=== PATIENT | female | born 1940 | race Caucasian/White ===

== ENCOUNTER 2017-01-08 14:32 | Inpatient (IN) | payer MEDICARE, BC ==
[~2017-01-08] VITALS: Ht 167.6 cm; Wt 73.1 kg
[~2017-01-08 14:32] MED LIST: CITA20TA9 PO; LISI-338 PO; METF500T4 PO
--- NOTE | 2017-01-08 14:55 | PHYS DOC ---
Text Text See Dr. Cherry chart for details. Still awaiting- [facility] response on admission. Impression: 1. Mental Status Change- last few days 2. 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 Hx. of Recent UTI 4. Hallucinations (CARLA CAMPO MD) General Chief Complaint: ALTERED MENTAL STATUS Stated Complaint: AMS Time Seen by MD: 14:36 Source: patient, EMS Exam Limitations: clinical condition Problems: (SRINI CHERRY DO) Time Seen by MD: 18:21 Problems: (CARLA CAMPO MD) History of Present Illness Initial Comments Pt is 76/F to ED for reported worsening of dementia. EMS reports that pt daughter is a nurse, she reports pt dementia has been worsening for about 6 weeks. Daughter says that she went to pick pt up for doctor appointment today and pt refused to go with her. Daughter stated to EMS pt recently diagnosed UTI but says dementia progression began prior to UTI diagnosis. On ED arrival pt daughter remains in waiting room as there is an obvious point of tension between them. Pt notified ED staff that her daughter comes over to her house constantly giving her orders telling her what to do. States that today she came into her home unannounced and began ordering her around, pt states she decided it was enough, it is her house and her daughter hasn't the right to order her around. Pt refused to cooperate with her daughter prompting daughter to call 911. Pt states she's had a correction strained relationship with her daughter, states she has two sons with whom she enjoys good relations. Pt appears to have good recent/remote memory, she did state she thought today was Wednesday. Pt talks to persons not present thru ED course with apparent hallucinations. Pt does state she has a "special relationship" with Dr Razo's son. She says he lives close and was present today at her home when her daughter came over and EMS responded. EMS did not see any children in pt home. Timing/Duration: unsure Severity: moderate Modifying Factors: improves with other Associated Symptoms: other (SRINI CHERRY DO) Allergies: Coded Allergies: No Known Drug Allergies (Unverified , 07/08/14) Past Medical History Medical History: other (CVA, depression, DM, HTN) Surgical History: noncontributory (SRINI CHERRY DO) Family History Significant Family History: no pertinent family hx (SRINI CHERRY DO) Social History Smoker: non-smoker Alcohol: none Drugs: none (SRINI CHERRY DO) Review of Systems All Other Systems: Reviewed and Negative (pt with AMS, accurate ROS unobtainable) (SRINI CHERRY DO) Physical Exam General Appearance: WD/WN, no apparent distress Eyes: bilateral eye EOMI, bilateral eye PERRL, bilateral eye normal inspection Ear, Nose, Throat: hearing grossly normal, normal ENT inspection Neck: non-tender, supple Respiratory: normal breath sounds, no respiratory distress Cardiovascular: normal peripheral pulses, regular rate, rhythm Gastrointestinal: non tender, soft Back: no CVA tenderness, no vertebral tenderness Extremities: non-tender, normal inspection Neurologic/Psychiatric: account liaison II-XII nml as tested, no motor/sensory deficits, alert, other (cooperative, anxious, apparent hallucinations speaking to "Alicia " and others not present.) Skin: normal color, warm/dry (SRINI CHERRY DO) Orders, Labs, Meds EKG: NSR 91 bpm, low voltage, no STEMI Reassuring workup, medically cleared for mental health evaluation. 1737: Currently waiting for [facility] response as to whether they will accept pt for eval/tx. Pt signed out to Dr Campo at 1800 shift change. See his documentation for pt disposition. (SRINI CHERRY DO) SRINI CHERRY DO Jan 08, 2017 14:55 CARLA CAMPO MD Jan 08, 2017 19:19
--- NOTE | 2017-01-08 15:30 | EKG ---
[address] [address] Test Date: 2017-01-08 Test Time: 15:27:54 Pat Name: ANTHONY ALANIZ Department: Room: Gender: F [employer] Operator: TACHO : 1940 Requested By: SRINI CHERRY Order Number: [id number] Reading MD: Lj Hair Measurements Intervals [place] Rate: 91 P: 59 OK: 170 QRS: 4 QRSD: 80 T: 26 QT: 358 QTc: 442 Interpretive Statements SINUS RHYTHM Electronically Signed On 01-12-2017 15:29:54 CDT by Lj Hair
[2017-01-08 15:32] LABS: BASO % 1 % (0-3); EOS # 0.2 x10^3/uL (0.0-0.7); EOS % 3 % (0-3); HEMATOCRIT 41.4 % (36.0-47.0); HEMOGLOBIN 13.8 g/dL (12.0-15.5); LYMPH # 1.8 x10^3/uL (1.0-4.8); LYMPH % 26 % (24-48); MEAN CORPUSCULAR HEMOGLOBIN 33 pg (25-35); MEAN CORPUSCULAR HGB CONC 33 g/dL (31-37); MEAN CORPUSCULAR VOLUME 98 fL (79-100); MONO # 0.6 x10^3/uL (0.0-1.1); MONO % 8 % (0-9); NEUT # 4.4 x10^3uL (1.8-7.7); NEUT % 63 % (31-73); PLATELET COUNT 205 x10^3/uL (140-400); RED CELL DISTRIBUTION WIDTH 14.6 % (11.5-14.5); WHITE BLOOD COUNT 6.9 x10^3/uL (4.0-11.0)
[2017-01-08 15:33] LABS: CALCIUM 9.8 mg/dL (8.5-10.1); CREATININE 1.1 mg/dL (0.6-1.0); GFR 48.2; POTASSIUM 4.1 mmol/L (3.5-5.1)
[2017-01-08 16:32] LABS: CLARITY,URINE CLEAR; COLOR,URINE YELLOW
[2017-01-08 16:33] LABS: AMORPHOUS SEDIMENT,UR PRESENT /HPF; BACTERIA,URINE 0 /HPF (0-FEW); BILIRUBIN,URINE NEG (NEG); GLUCOSE,URINE NEG (NEG); NITRITE,URINE NEG (NEG); SQUAMOUS EPITHELIAL CELL,UR OCC /LPF; UROBILINOGEN,URINE 0.2 mg/dL (0.2 mg/dL)
[2017-01-08 16:57] LABS: AMPHETAMINE/METHAMPHETAMINE NEG (NEG); BARBITURATES NEG (NEG); BENZODIAZEPINES NEG (NEG); CANNABINOIDS NEG (NEG); COCAINE NEG (NEG); METHADONE NEG (NEG); OPIATES NEG (NEG); PHENCYCLIDINE NEG (NEG)
--- NOTE | 2017-01-08 19:08 | ACF ---
Admission Criteria Forms MENTAL STATUS CHANGE Clinical Indications for Inpatient Care (Place 'X' for any and all applicable criteria): Ongoing inpatient care may be needed for 1 or more of the following(1)(2)(3)(5)( 6): [x]I. Suspected serious etiology (eg, medical disorder, FRETTED INSTRUMENT REPAIRER event) of altered mental status [ ]II. Danger to self or others not manageable at lower level of care [ ]III. Grave disability (eg, inability to perform self care necessary at lower level of care) [ ]IV. Agitation or inappropriate behavior interfering with care for primary condition (eg, attempting to discontinue lines or drains prematurely, unable to cooperate with respiratory care) [ ]V. Delirium [A] [D][E] as described by 1 or more of the following(26): [ ]a) Delirium due to alcohol or sedative [F] withdrawal [ ]b) Delirium of uncertain etiology that has not responded to appropriate empiric treatment [ ]c) Delirium that prevents performance of a life-sustaining function (eg, feeding or hydrating oneself) [ ]. General contraindications and/or Inappropriate clinical situations for Observational Care in patients with Mental Status Change, when ANY ONE of the following is required: [ ]a) Prediction of prolongation of LOS based on ANY ONE of the following may be considered as a contraindication for observational care 2, 3, 4, 5, 6, 7, 8, 9, 10, 11 [ ]i) Age > 65 yrs. [ ]ii) Patient arriving by ambulance [ ]iii) Patient with high acuity [ ]iv) Patient requiring vital sign monitoring [ ]v) Patient on IV medication [ ]b) Systolic blood pressures greater than or equal to 180mmHg 3, 12 [ ]c) Patient with altered mental status including delirium and other alteration of consciousness, (3) [ ]d) Patient whose discharge disposition will be to a correction home or rehabilitation home should not be managed in Emergency Department Observation Unit. CMS rule requires 3 days hospital stay before such placement.3,13 [ ]e) Patient with failure to thrive due to broad array of etiologies 3,16,17 [ ]f) Inability to ambulate 3,14 Extended stay beyond goal length of stay for the primary condition may be needed until ALL of the following are present(3)(5): [ ]a) Underlying medical etiology of mental status change is absent, or has been established and adequately treated [ ]b) Danger to self or others is absent or manageable at lower level of care. [ ]c) Behavior crisis management, including physical or chemical restraints, is not required or available at lower level of car [ ]d) Substance or alcohol withdrawal is absent or manageable at lower level of care. [ ]e) Behavioral symptoms (eg, agitation, somnolence, inappropriate behavior) are absent, or are manageable at lower level of care. The original [facility] [employer] content created by [facility] [employer] has been revised. The portions of the content which have been revised are identified through the use of italic text or in bold, and [facility] has neither reviewed nor approved the modified material. All other unmodified content is copyright [facility]. Please see references footnoted in the original [facility] edition 2016 Admission Criteria Met?: Yes SWETHA MEANS Jan 08, 2017 19:07
--- NOTE | 2017-01-08 19:45 | NUR ---
Admission Note: Patient arrived to [facility] room 218 accompanied by [facility] ER staff/EMS. Patient w/o s/s of distress. Gait steady. Vital signs on arrival: Temp-97.0, HR 105 (regular, S1 S2), Spo2= 94% on RA, resp 18 regular and unlabored, and BP 156/93. LCTA with diminished bases, No edema noted to peripheral extremities. Pedal pulses 1+ bilat. Pt denies pain/discomfort. Skin overall intact; no areas related to pressure noted. Bowel sounds active x 4 quads; Abdomen soft; last BM unknown. Patient alert and oriented to self only and disoriented to place, situation, date, and time. PERRLA. No hearing deficit noted. Patient presents with labile mood; shifting between calm and cooperative to irritable and non-compliant. Patient has hallucinations and delusions noted via carrying on conversation with 2-3 people that are not present in her room. Patient states, "Who put me here? My daughter couldn't have because she is in senior living! Mom! Son! Come in here and talk to Dr. Razo please!" Patient redirected and attempted reorientation, in which her response was, " I don't mean to be mean, I just don't understand what I did?' Spoke with patient's daughter/DPOA to review current medications and noted behaviors at home. Daughter states that patient is only taking Aricept 10 mg po daily and Metoprolol 50 mg po BID. Janumet, Celexa, and Lisinopril, and metformin were discontinued in October 2016. Additional information from daughter: Baseline behavior is quiet, demure, and reserved and she was able to live alone. Change in behavior noted in October 2016 and included: inability to care for her dog, no personal care such as bathing or laundry, sleeping at odd times, forgetful, delusions (e.g. thinking she was to her primary care doctor). Daughter stated she has been looking at intermediate school teacher care facilities that provide memory care (they have toured [employer] thus far). Will monitor patient response to [facility] admission and intervene accordingly.
--- NOTE | 2017-01-08 21:00 | PDOC ---
Exam Fabian Demential Exam: Fabian Note: Please also refer to the separate dictated note~for this date of service dictated separately.~Patient seen individually. Discussed the patient with Nursing staff reviewed the chart.~Reviewed interim history and current functioning. Reviewed vital signs,~Labs/ Radiology~and current medications noted below. Continue current treatment with the changes noted in the dictated addendum note Assessment: Vital Signs: Vital Signs Date Time Temp Pulse Resp B/P Pulse Ox O2 Delivery O2 Flow Rate FiO2 01/08/17 14:45 97.6 95 20 97 Room Air Labs: Laboratory Tests Test 01/08/17 15:15 01/08/17 16:00 White Blood Count 6.9x10^3/uL (4.0-11.0) Red Blood Count 4.20x10^6/uL (3.50-5.40) Hemoglobin 13.8g/dL (12.0-15.5) Hematocrit 41.4% (36.0-47.0) Mean Corpuscular Volume 98fL (79-100) Mean Corpuscular Hemoglobin 33pg (25-35) Mean Corpuscular Hemoglobin Concent 33g/dL (31-37) Red Cell Distribution Width 14.6% (11.5-14.5) H Platelet Count 205x10^3/uL (140-400) Neutrophils (%) (Auto) 63% (31-73) Lymphocytes (%) (Auto) 26% (24-48) Monocytes (%) (Auto) 8% (0-9) Eosinophils (%) (Auto) 3% (0-3) Basophils (%) (Auto) 1% (0-3) Neutrophils # (Auto) 4.4x10^3uL (1.8-7.7) Lymphocytes # (Auto) 1.8x10^3/uL (1.0-4.8) Monocytes # (Auto) 0.6x10^3/uL (0.0-1.1) Eosinophils # (Auto) 0.2x10^3/uL (0.0-0.7) Basophils # (Auto) 0.0x10^3/uL (0.0-0.2) Sodium Level 142mmol/L (136-145) Potassium Level 4.1mmol/L (3.5-5.1) Chloride Level 105mmol/L (98-107) Carbon Dioxide Level 30mmol/L (21-32) Anion Gap 7 (6-14) Blood Urea Nitrogen 15mg/dL (7-20) Creatinine 1.1mg/dL (0.6-1.0) H Estimated GFR (Cockcroft-Gault) 48.2 Glucose Level 107mg/dL (70-99) H Calcium Level 9.8mg/dL (8.5-10.1) Ethyl Alcohol Level < 10mg/dL (0-10) Urine Collection Type U cath Urine Color Yellow Urine Clarity Clear Urine pH 5.5 Urine Specific [place] >=1.030 Urine Protein Neg (NEG-TRACE) Urine Glucose (UA) Negmg/dL (NEG) Urine Ketones (Stick) Negmg/dL (NEG) Urine Blood Neg (NEG) Urine Nitrite Neg (NEG) Urine Bilirubin Neg (NEG) Urine Urobilinogen Dipstick 0.2mg/dL (0.2 mg/dL) Urine Leukocyte Esterase Neg (NEG) Urine RBC 1-2/HPF (0-2) Urine WBC 1-4/HPF (0-4) Urine Squamous Epithelial Cells Occ/LPF Urine Transitional Epithelial Cells Occ/LPF Urine Amorphous Sediment Present/HPF Urine Bacteria 0/HPF (0-FEW) Urine Opiates Screen Neg (NEG) Urine Methadone Screen Neg (NEG) Urine Barbiturates Neg (NEG) Urine Phencyclidine Screen Neg (NEG) Urine Amphetamine/Methamphetamine Neg (NEG) Urine Benzodiazepines Screen Neg (NEG) Urine Cocaine Screen Neg (NEG) Urine Cannabinoids Screen Neg (NEG) Urine Ethyl Alcohol Neg (NEG) Current Medications: Meds: Active Scripts Active Reported Lisinopril 5 Mg Tablet 5 Mg PO DAILY Metformin Hcl 500 Mg Tablet 500 Mg PO BIDWMEALS Celexa (Citalopram Hydrobromide) 20 Mg Tablet 20 Mg PO HS Diagnosis: Problems: (1) Confusion (2) Fall (3) Dementia with behavioral disturbance JIMBO MARLEY MD Jan 08, 2017 20:59
[2017-01-08] MEDS ORDERED: DONE10TA61 PO (21:36)
[2017-01-08] MEDS ORDERED: METO50TA2 PO (21:36)
[2017-01-08] MEDS ORDERED: MAG HYDROX/AL HYDROX/SIMETH 30 ML ORAL.SUSP PO PRN (21:45)
[2017-01-08] MEDS ORDERED: METHYL SALICYLATE/MENTHOL TOPICAL OINTMENT 29GM TUBE. TP PRN (21:45)
[2017-01-08] MEDS ORDERED: ACETAMINOPHEN 325 MG TABLET PO PRN (21:45)
[2017-01-08] MEDS ORDERED: MAGNESIUM HYDROXIDE 2,400 MG/30 ML ORAL.SUSP. PO PRN (21:45)
[2017-01-08] MEDS: DONEPEZIL HCL 10 MG TABLET PO SCH (22:00)
[2017-01-08 22:12] LABS: ALBUMIN 3.3 g/dL (3.4-5.0); ALBUMIN/GLOBULIN RATIO 0.9 (1.0-1.7); CALCIUM 9.8 mg/dL (8.5-10.1); GFR 53.8; POTASSIUM 4.2 mmol/L (3.5-5.1); TOTAL BILIRUBIN 0.6 mg/dL (0.2-1.0); TOTAL PROTEIN 7.1 g/dL (6.4-8.2)
[2017-01-08 22:29] VITALS: BP 156/93
--- NOTE | 2017-01-08 23:00 | NUR ---
Behavior Intervention Response and Plan: BIRP Note: Behavior: Assumed Care of patient, patient located in Day Room at shift change. Patient exhibited the following behavior Restless, Wandering, Exit Seeking, Anxious, paranoid, suspicious, swinging at staff. Brief assessment on rounds of vital signs, medication needs, lab studies, and pain. Treatment plan problems . Intervention: Patient assessed and the following interventions initiated safety checks 15 Minute Checks, Cognitive Assessment , Head to toe Assessment , Medications, Dr. Smith notified of the above behaviors. Orders received for Zyprexa Zydis 2.5 mg po Q 2 hours prn agitation and anxiety. Max dose 10 mg in 24 hour period. Response: After interactions and interventions patient responded in the following manner, Calm , Interactive ,Cooperative, awake, no s/s distress. Continue to assess behaviors and condition will continue to monitor throughout the shift as needed. Plan: Continue to monitor Master Treatment Plan for patient's progress toward short term goals of Decreased Agitation, Decreased Anxiety, Medication Compliance, Improved Mood, oysterman goals to return to previous living setting vs placement. Continue to assess patient for changes in above assessment. Monitor for medication needs, pain, and safety concerns. Hourly rounding performed to ensure safe environment.
--- NOTE | 2017-01-09 06:00 | NUR ---
Nursing Note: Patient calm and exhibiting same behaviors at this time, but did not sleep at all last night. Report given for shift exchange and nursing will continue to follow.
[2017-01-09 06:28] VITALS: BP 138/89
[2017-01-09] MEDS: METOPROLOL TART IMMED RELEASE 50 MG TABLET PO SCH ×2 (08:04→21:10)
--- NOTE | 2017-01-09 09:28 | NUR ---
Behavior Intervention Response and Plan: BIRP Note: Behavior: Assumed Care of patient, patient located in Hallway at shift change. Patient exhibited the following behavior Disorganized, Irritable, Delusions. Brief assessment on rounds of vital signs, medication needs, lab studies, and pain. Treatment plan problems . Intervention: Patient assessed and the following interventions initiated safety checks 15 Minute Checks Cognitive Assessment , Head to toe Assessment , Medications. Response: After interactions and interventions patient responded in the following manner, Disorganized , Compliant ,Delusions. Continue to assess behaviors and condition will continue to monitor throughout the shift as needed. 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 Continue to assess patient for changes in above assessment. Monitor for medication needs, pain, and safety concerns. Hourly rounding performed to ensure safe environment.
[2017-01-09 10:53] LABS: THYROID STIM HORMONE (TSH) 2.718 uIU/mL (0.358-3.740)
--- NOTE | 2017-01-09 12:06 | HP ---
ADMIT DATE: 01/09/2017 REASON FOR ADMISSION TO SENIOR BEHAVIORAL UNIT: This is a 76-year-old female who was living at home, but has been having increasing problems with dementia, talking to unseen people, confused, and wandering. PAST MEDICAL HISTORY: Hypertension, diabetes, and dementia. ALLERGIES: None. MEDICATIONS: Metoprolol, very few medications, Aricept 10 mg at bedtime, and metoprolol 50 b.i.d. Other medicines are crossed off such as Celexa, lisinopril, and metformin. SOCIAL HISTORY: Nonsmoker and nondrinker. 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 REVIEW OF SYSTEMS: The patient does not have any complaints and emphatically said no as far as urinary or bowel problems. OBJECTIVE: VITAL SIGNS: Blood pressure 138/89, pulse 82, temperature 96.7, respirations 14, pulse ox 98% on room air, height 66 inches, weight 154 pounds, and 24.9 BMI. GENERAL: A 76-year-old in no acute distress. She looks slightly younger than her stated age. HEENT: Her hearing is normal. Her pupils were equal, round, and react to light. Extraocular muscles are intact. Her nose is patent. Her throat was clear. Tongue was midline. Gag is intact. NECK: Supple. Thyroid was not enlarged. LUNGS: Clear to auscultation. CARDIOVASCULAR: Regular rhythm and rate. ABDOMEN: Soft and nontender. EXTREMITIES: Without edema. MUSCULOSKELETAL: She passes to get up and go test. Cranial nerves are intact. She ambulates without assistance. MENTAL STATE: Confused. She states she is here because she wants to go to school to be a nurse. Short term memory not good. She did know her age. LABORATORY DATA: Normal CBC. She has hyperlipidemia. TSH 2.718. Albumin slightly low at 3.3, BUN 15, and creatinine 1.0. Urinalysis specific gravity was greater than 1.030 yesterday. Drug screen negative. ASSESSMENT: 1. A 77-year-old with progressing dementia. 2. Diabetes, off medication. 3. Hypertension. 4. Hyperlipidemia. We will prescribe a statin. 5. Mild protein malnutrition. We will monitor her diet. 6. Dehydration per specific gravity of urinalysis and give order to push fluids. Monitor other labs as they come in. MELISSA BOB DO DR: Hillary JOB#: [id number] / [id number]
[2017-01-09 16:08] LABS: T3 TOTAL 100 ng/dL (71-180); THYROXINE 6.1 ug/dL (4.5-12.0)
[2017-01-09 16:12] VITALS: BP 117/76
--- NOTE | 2017-01-09 17:37 | NUR ---
pt anxious in am and wouldn't come to breakfast. looking for way out. compliant with meds. took zydis. calm until afternoon, after visit with son. zydis again given. has been in pleasant spirits. confused.
[2017-01-09] MEDS ORDERED: traZODone 50 MG TABLET. PO PRN (19:30)
--- NOTE | 2017-01-09 21:08 | PDOC ---
Exam Fabian Demential Exam: Fabian Note: Please also refer to the separate dictated note~for this date of service dictated separately.~Patient seen individually. Discussed the patient with Nursing staff reviewed the chart.~Reviewed interim history and current functioning. Reviewed vital signs,~Labs/ Radiology~and current medications noted below. Continue current treatment with the changes noted in the dictated addendum note Assessment: Vital Signs: Vital Signs Date Time Temp Pulse Resp B/P Pulse Ox O2 Delivery O2 Flow Rate FiO2 01/09/17 16:12 97.0 72 18 117/76 97 01/09/17 06:28 Room Air Current Medications: Meds: Current Medications Donepezil HCl (Aricept) 10 mg QHS PO Last administered on 01/08/17 22:00; Start 01/08/17 at 22:00 Acetaminophen (Tylenol) 650 mg PRN Q6HRS PRN PO PAIN / TEMP; Start 01/08/17 at 21:45 Multi-Ingredient Ointment (Analgesic Marcus) 1 shelia PRN QID PRN TP MUSCLE PAIN; Start 01/08/17 at 21:45 Al Hydroxide/Mg Hydroxide (Mylanta Plus Xs) 15 ml PRN AFTMEALHC PRN PO DYSPEPSIA; Start 01/08/17 at 21:45 Magnesium Hydroxide (Milk Of Magnesia) 2,400 mg PRN QHS PRN PO CONSTIPATION; Start 01/08/17 at 21:45 Olanzapine (Zyprexa Zydis) 2.5 mg PRN Q2HR PRN PO ANXIETY / AGITATION Last administered on 01/09/17 13:22; Start 01/08/17 at 22:45 Metoprolol Tartrate (Lopressor) 50 mg BID PO Last administered on 01/09/17 08: 04; Start 01/09/17 at 09:00 Atorvastatin Calcium (Lipitor) 20 mg QHS PO ; Start 01/09/17 at 21:00 Quetiapine Fumarate (SEROquel) 12.5 mg QHS PO ; Start 01/09/17 at 21:00 Trazodone HCl (Desyrel) 25 mg PRN QHS PRN PO INSOMNIA, MAY REPEAT X1; Start at 19:30 Active Scripts Active Reported Aricept (Donepezil Hcl) 10 Mg Tablet 10 Mg PO QHS Metoprolol Tartrate 50 Mg Tablet 50 Mg PO BID Diagnosis: Problems: (1) Dementia with behavioral disturbance (2) Confusion (3) Fall JIMBO MARLEY MD Jan 09, 2017 21:08
[2017-01-09] MEDS: DONEPEZIL HCL 10 MG TABLET PO SCH (21:10)
[2017-01-09] MEDS: QUEtiapine 25 MG TABLET. PO SCH (21:12)
[2017-01-09] MEDS: ATORVASTATIN CALCIUM 20 MG TABLET PO SCH (21:12)
--- NOTE | 2017-01-09 22:29 | HP ---
ADMIT DATE: 01/09/2017 IDENTIFYING DATA: The patient is a 76-year-old female who presented to the [facility] Emergency Room referred by her primary care physician, Dr. Razo on account of increased confusion, talking to unseen people, and wandering. Reportedly, the patient lives at home, still has a car available to her. She has been very confused, paranoid, delusional, and psychotic with some sleep and appetite changes. Behaviors have been deemed to be a potential danger to herself. She was referred for inpatient psychiatric stabilization. 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 HISTORY OF PRESENT ILLNESS: The patient has a history of dementia, Alzheimer's vascular type. Reportedly, she has been living at home with worsening confusion. There has been a risk that she could be driving as she has been wandering outside the home. She has had some sleep and appetite changes. No clear suicidal or homicidal ideation. No clear history of bipolar disorder. PAST PSYCHIATRIC HISTORY: Positive for progressive dementia and symptoms of depression and anxiety prior to this. 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 PAST MEDICAL HISTORY: Hypertension and diabetes mellitus. DRUG ALLERGIES: Negative. CURRENT PSYCHOTROPICS: Aricept 10 mg a day and metoprolol 50 mg twice a day. DRUG ALLERGIES: Negative. CODE STATUS: DNR. FAMILY HISTORY: Noncontributory. SOCIAL HISTORY: No alcohol, drug abuse, physical, sexual, or elder abuse history is noted. She is not known to be a perpetrator. VITAL SIGNS: Temperature 97, pulse 72, and BP 117/76. REVIEW OF SYSTEMS: No CV, , eye, ENT, or pulmonary system symptoms on review. Reliability poor. MENTAL STATUS EXAMINATION: Oriented to herself. Insight, judgment, recent and remote memory, attention, concentration, fund of knowledge poor, consistent with her diagnoses. IMPRESSION: Major neurocognitive disorder, Alzheimer, vascular with depression, delusion, behavioral disturbance; anxiety disorder, unspecified; and impulse control disorder, unspecified. PLAN: Admit to the geropsychiatry unit at [facility]. I will see the patient daily individually. Request medical followup with Dr. Loco/Dr. Lehman. Continue the patient on her current psychotropics. Observe baseline and then make further adjustments as clinically indicated. MAN Brooks MARLEY MD DR: JEAN/filemon JOB#: [id number] / [id number]
[2017-01-09 23:06] LABS: HEMOGLOBIN A1C 5.7 % (4.8-5.6)
--- NOTE | 2017-01-10 00:34 | NUR ---
Behavior Intervention Response and Plan: BIRP Note: Behavior: Assumed Care of patient, patient located in Day Room at shift change. Patient exhibited the following behavior Interactive, Disorganized, Defensive. Brief assessment on rounds of vital signs, medication needs, lab studies, and pain. Treatment plan problems :1-2 Intervention: Patient assessed and the following interventions initiated safety checks 15 Minute Checks Cognitive Assessment , Head to toe Assessment , Medications. Response: After interactions and interventions patient responded in the following manner, Disorganized , Defensive ,Able to Focus on Task. Continue to assess behaviors and condition will continue to monitor throughout the shift as needed. 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 Continue to assess patient for changes in above assessment. Monitor for medication needs, pain, and safety concerns. Hourly rounding performed to ensure safe environment.
[2017-01-10 07:00] VITALS: BP 100/53
[2017-01-10] MEDS: METOPROLOL TART IMMED RELEASE 50 MG TABLET PO SCH ×2 (07:55→19:26)
--- NOTE | 2017-01-10 15:31 | NUR ---
pt up adl to meals and out to day room. slept thru breakfast. got up mid morning. anxious. med compliant. ate well for noon meal. confused but pleasant.
[2017-01-10 17:04] VITALS: BP 137/81
[2017-01-10] MEDS: ATORVASTATIN CALCIUM 20 MG TABLET PO SCH (19:24)
[2017-01-10] MEDS: DONEPEZIL HCL 10 MG TABLET PO SCH (19:24)
[2017-01-10] MEDS: QUEtiapine 25 MG TABLET. PO SCH (19:24)
--- NOTE | 2017-01-10 21:02 | PDOC ---
Exam Fabian Demential Exam: Fabian Note: Please also refer to the separate dictated note~for this date of service dictated separately.~Patient seen individually. Discussed the patient with Nursing staff reviewed the chart.~Reviewed interim history and current functioning. Reviewed vital signs,~Labs/ Radiology~and current medications noted below. Continue current treatment with the changes noted in the dictated addendum note Assessment: Vital Signs: Vital Signs Date Time Temp Pulse Resp B/P Pulse Ox O2 Delivery O2 Flow Rate FiO2 01/10/17 19:26 78 137/81 01/10/17 17:04 97.9 19 100 01/09/17 06:28 Room Air I&O Intake and Output 01/10/17 07:00 Intake Total 480 ml Balance 480 ml Intake Oral 480 ml Current Medications: Meds: Current Medications Donepezil HCl (Aricept) 10 mg QHS PO Last administered on 01/10/17 19:24; Start 01/08/17 at 22:00 Acetaminophen (Tylenol) 650 mg PRN Q6HRS PRN PO PAIN / TEMP; Start 01/08/17 at 21:45 Multi-Ingredient Ointment (Analgesic [place]) 1 shelia PRN QID PRN TP MUSCLE PAIN; Start 01/08/17 at 21:45 Al Hydroxide/Mg Hydroxide (Mylanta Plus Xs) 15 ml PRN AFTMEALHC PRN PO DYSPEPSIA; Start 01/08/17 at 21:45 Magnesium Hydroxide (Milk Of Magnesia) 2,400 mg PRN QHS PRN PO CONSTIPATION; Start 01/08/17 at 21:45 Olanzapine (Zyprexa Zydis) 2.5 mg PRN Q2HR PRN PO ANXIETY / AGITATION Last administered on 01/10/17 07:56; Start 01/08/17 at 22:45 Metoprolol Tartrate (Lopressor) 50 mg BID PO Last administered on 01/10/17 19: 26; Start 01/09/17 at 09:00 Atorvastatin Calcium (Lipitor) 20 mg QHS PO Last administered on 01/10/17 19: 24; Start 01/09/17 at 21:00 Quetiapine Fumarate (SEROquel) 12.5 mg QHS PO Last administered on 01/10/17 19 :24; Start 01/09/17 at 21:00 Trazodone HCl (Desyrel) 25 mg PRN QHS PRN PO INSOMNIA, MAY REPEAT X1 Last administered on 01/09/17t 21:09; Start 01/09/17 at 19:30 Active Scripts Active Reported Aricept (Donepezil Hcl) 10 Mg Tablet 10 Mg PO QHS Metoprolol Tartrate 50 Mg Tablet 50 Mg PO BID Diagnosis: Problems: (1) Dementia with behavioral disturbance (2) Confusion (3) Fall (4) Anxiety disorder (5) Dementia in Alzheimer's disease with delusions (6) Dementia in Alzheimer's disease with depression (7) Dementia, vascular, with delusions (8) Dementia, vascular, with depression (9) Impulse control disorder JIMBO MARLEY MD Jan 10, 2017 21:02
--- NOTE | 2017-01-11 01:36 | NUR ---
Behavior Intervention Response and Plan: BIRP Note: Behavior: Assumed Care of patient, patient located in at shift change. Patient exhibited the following behavior Wandering, Exit Seeking, Irritable. Brief assessment on rounds of vital signs, medication needs, lab studies, and pain. Treatment plan problems :1-2 Intervention: Patient assessed and the following interventions initiated safety checks 15 Minute Checks Cognitive Assessment , Head to toe Assessment , Medications. Response: After interactions and interventions patient responded in the following manner, Hallucinating , Irritable ,Delusions. Continue to assess behaviors and condition will continue to monitor throughout the shift as needed. 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 Continue to assess patient for changes in above assessment. Monitor for medication needs, pain, and safety concerns. Hourly rounding performed to ensure safe environment.
--- NOTE | 2017-01-11 01:43 | NUR ---
Nsg Note: Pt was sitting in the dayroom @ shift change & @ this time she was cooperative w/ assessment & later took her HS meds w/ only minimal amount of prompting. As shift progressed she became more confused & delusional AEB by trying to force her way out of unit when RT was exiting & also stating she had to leave because she was the "...beckwith of the ball...." She cont. to wander & declined to take any further meds to assist her in calming down. Also she was overheard talking to non existent people including her mother. Pt finally tired herself out & was assisted to bed & settled. Will cont. to monitor.
[2017-01-11 06:54] VITALS: BP 138/85
[2017-01-11] MEDS: METOPROLOL TART IMMED RELEASE 50 MG TABLET PO SCH ×2 (09:19→20:15)
--- NOTE | 2017-01-11 10:24 | NUR ---
Psychosocial Assessment completed w/Pt's dtr/DPOA Alicia. Pt. was born and raised in [place] w/2 sisters and 3 brothers. Pt. had one brother born w/Down Syndrome who as an infant. Pt. worked on the [employer]. PT's mother was raised by her mother, did not attend school and likely suffered from some sort of undiagnosed Mental Health. Pt's mother from Dementia related illness in 2001. Pt. completed HS and moved to [place] where she met and 1st named Ishaan. She has 2 children w/Ishaan named Alicia and Delano. They and she #2 named Tee, although they were only for a very brief time. Pt. then 3rd named Angel for 28 years, had one child w/him named Noam who has very little contact w/the family at this time. They are currently . 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 Pt. suffered a prescription drug problem in the s w/Valium. When the regulations changed in the , it became harder for Pt. to receive a script for Valium, thus forcing her to quit abusing the medication. Pt. has been known to take many over the counter medications for her chcf headaches. 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 Pt. owns her home and has $13,000 in a savings. Pt's dtr. would like to try a dc to home w/in-home care.
--- NOTE | 2017-01-11 10:54 | NUR ---
[facility] reviewed Pt. insurance upon admit. Face sheet, CSNAP and intake state Pt's insurance is Medicare Primary and BCBS Federal secondary.
--- NOTE | 2017-01-11 11:19 | NUR ---
Behavior Intervention Response and Plan: BIRP Note: Behavior: Assumed Care of patient, patient located in Patient Room at shift change. Patient exhibited the following behavior Interactive, Disorganized, Compliant. Brief assessment on rounds of vital signs, medication needs, lab studies, and pain. Treatment plan problems . Intervention: Patient assessed and the following interventions initiated safety checks 15 Minute Checks Cognitive Assessment , Head to toe Assessment , Medications. Response: After interactions and interventions patient responded in the following manner, Disorganized , Social ,Compliant. Continue to assess behaviors and condition will continue to monitor throughout the shift as needed. 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 Continue to assess patient for changes in above assessment. Monitor for medication needs, pain, and safety concerns. Hourly rounding performed to ensure safe environment.
--- NOTE | 2017-01-11 15:50 | PN ---
DATE: 01/10/2017 PSYCHIATRIC PROGRESS NOTE This is late entry of 01/10/2017, covers elements not covered in my initial note. SUBJECTIVE: The patient remains confused, has been wandering, exit seeking, compliant with medications. Slept well. REVIEW OF SYSTEMS: No CV, , pulmonary, eye, ENT system symptoms on review. Reliability poor. MENTAL STATUS EXAMINATION: Oriented to herself. Insight, judgment, recent and remote memory, attention, concentration, fund of knowledge poor, consistent with her diagnosis mentioned in my initial note. PLAN: Continue current psychotropics, Aricept 10 mg a day, Zyprexa p.r.n., Seroquel 12.5 mg at bedtime and trazodone at bedtime p.r.n. Adjust further as clinically indicated. MAN Brooks MARLEY MD DR: JEAN/filemon JOB#: [id number] / [id number]
--- NOTE | 2017-01-11 16:00 | NUR ---
Attempted to meet and complete Activity Therapy Assessment; however, Pt. was with a visitor. 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
[2017-01-11 16:18] VITALS: BP 120/76
[2017-01-11] MEDS: ATORVASTATIN CALCIUM 20 MG TABLET PO SCH (20:14)
[2017-01-11] MEDS: DONEPEZIL HCL 10 MG TABLET PO SCH (20:15)
[2017-01-11] MEDS: QUEtiapine 25 MG TABLET. PO SCH (20:15)
--- NOTE | 2017-01-11 21:10 | NUR ---
Behavior Intervention Response and Plan: BIRP Note: Behavior: Assumed Care of patient, patient located in Day Room at shift change. Patient exhibited the following behavior Wandering, Disorganized, Defensive, Resistive, Angry. Brief assessment on rounds of vital signs, medication needs, lab studies, and pain. Treatment plan problems 1-2/fall risk . Intervention: Patient assessed and the following interventions initiated safety checks 15 Minute Checks Cognitive Assessment , Head to toe Assessment , Medications, 1:1 intervention to allow for patient to vent in a calm environment. Response: After interactions and interventions patient responded in the following manner, Calm , Compliant ,Wandering. Continue to assess behaviors and condition will continue to monitor throughout the shift as needed. Plan: Continue to monitor Master Treatment Plan for patient's progress toward short term goals of Decreased Agitation, Decreased Anxiety, Medication Compliance, Improved Mood, terminal gauger goals to return to previous living setting vs placement. Continue to assess patient for changes in above assessment. Monitor for medication needs, pain, and safety concerns. Hourly rounding performed to ensure safe environment.
--- NOTE | 2017-01-11 23:45 | PDOC ---
Exam Fabian Demential Exam: Fabian Note: Please also refer to the separate dictated note~for this date of service dictated separately.~Patient seen individually. Discussed the patient with Nursing staff reviewed the chart.~Reviewed interim history and current functioning. Reviewed vital signs,~Labs/ Radiology~and current medications noted below. Continue current treatment with the changes noted in the dictated addendum note Assessment: Vital Signs: Vital Signs Date Time Temp Pulse Resp B/P Pulse Ox O2 Delivery O2 Flow Rate FiO2 01/11/17 20:15 63 120/76 01/11/17 16:18 98.7 18 97 01/09/17 06:28 Room Air I&O Intake and Output 01/11/17 07:00 Intake Total 140 ml Balance 140 ml Intake Oral 140 ml Current Medications: Meds: Current Medications Donepezil HCl (Aricept) 10 mg QHS PO Last administered on 01/11/17 20:15; Start 01/08/17 at 22:00 Acetaminophen (Tylenol) 650 mg PRN Q6HRS PRN PO PAIN / TEMP; Start 01/08/17 at 21:45 Multi-Ingredient Ointment (Analgesic [place]) 1 shelia PRN QID PRN TP MUSCLE PAIN; Start 01/08/17 at 21:45 Al Hydroxide/Mg Hydroxide (Mylanta Plus Xs) 15 ml PRN AFTMEALHC PRN PO DYSPEPSIA; Start 01/08/17 at 21:45 Magnesium Hydroxide (Milk Of Magnesia) 2,400 mg PRN QHS PRN PO CONSTIPATION; Start 01/08/17 at 21:45 Olanzapine (Zyprexa Zydis) 2.5 mg PRN Q2HR PRN PO ANXIETY / AGITATION Last administered on 01/10/17 07:56; Start 01/08/17 at 22:45 Metoprolol Tartrate (Lopressor) 50 mg BID PO Last administered on 01/11/17 20: 15; Start 01/09/17 at 09:00 Atorvastatin Calcium (Lipitor) 20 mg QHS PO Last administered on 01/11/17 20: 14; Start 01/09/17 at 21:00 Quetiapine Fumarate (SEROquel) 12.5 mg QHS PO Last administered on 01/11/17 20 :15; Start 01/09/17 at 21:00 Trazodone HCl (Desyrel) 25 mg PRN QHS PRN PO INSOMNIA, MAY REPEAT X1 Last administered on 01/09/17t 21:09; Start 01/09/17 at 19:30 Active Scripts Active Reported Aricept (Donepezil Hcl) 10 Mg Tablet 10 Mg PO QHS Metoprolol Tartrate 50 Mg Tablet 50 Mg PO BID Diagnosis: Problems: (1) Dementia with behavioral disturbance (2) Anxiety disorder (3) Dementia in Alzheimer's disease with delusions (4) Dementia in Alzheimer's disease with depression (5) Dementia, vascular, with delusions (6) Dementia, vascular, with depression (7) Impulse control disorder JIMBO MARLEY MD Jan 11, 2017 23:45
[2017-01-12 06:16] VITALS: BP 114/53
[2017-01-12] MEDS: METOPROLOL TART IMMED RELEASE 50 MG TABLET PO SCH ×2 (09:00→20:02)
--- NOTE | 2017-01-12 10:00 | NUR ---
THERAPEUTIC RECREATION GROUP NOTE TITLE :Butterflies and Printer Machine Art ACTIVITY : Arts and Crafts GOAL : Increase socialization, fine motor skills, creativity DURATION : 30 minutes RESPONSE : Minimal participation. Pt. sat with the group and smiled often. She complimented work of others but did not work with any materials.
--- NOTE | 2017-01-12 11:15 | NUR ---
THERAPEUTIC RECREATION GROUP NOTE TITLE :Movement to Music: Flexibility ACTIVITY : Movement/ Exercise GOAL : Increase morale, attention, flexibility. Decrease stress/anxiety. DURATION : 40 Minutes RESPONSE : Full participation. Pt. followed along with moves and needed no prompting. She had a smile on her face most of the time.
--- NOTE | 2017-01-12 13:26 | NUR ---
Behavior Intervention Response and Plan: BIRP Note: Behavior: Assumed Care of patient, patient located in Patient Room at shift change. Patient exhibited the following behavior Disorganized, Wandering, Cooperative. Brief assessment on rounds of vital signs, medication needs, lab studies, and pain. Treatment plan problems . Intervention: Patient assessed and the following interventions initiated safety checks 15 Minute Checks Cognitive Assessment , Head to toe Assessment , Medications. Response: After interactions and interventions patient responded in the following manner, Disorganized , Withdrawn ,Cooperative. Continue to assess behaviors and condition will continue to monitor throughout the shift as needed. 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 Continue to assess patient for changes in above assessment. Monitor for medication needs, pain, and safety concerns. Hourly rounding performed to ensure safe environment.
--- NOTE | 2017-01-12 14:00 | NUR ---
THERAPEUTIC RECREATION GROUP NOTE TITLE :Sing along with Kiersten ACTIVITY : Music GOAL : Increase socialization, elevate mood, stimulate memory DURATION : 60 Minutes RESPONSE : No participation.
--- NOTE | 2017-01-12 16:00 | NUR ---
ACTIVITY THERAPY ASSESSMENT Completed based on observations and interview on this day at this time in Pt's room. Pt. said she was waiting on a picture and was irritated it hadn't happened yet. She was initially not cooperative with assessment questions. 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 She continued to talk about "vulgar" things that were written and how absurd and erroneous they were; however, she was not clear on what was said exactly. She stated she was not paranoid a few times in the assessment. 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 Pt. keeps to self most of the time but will come around group. Initial goal: Pt. will participate in all group she is invited to.
[2017-01-12 16:19] VITALS: BP 118/81
[2017-01-12] MEDS: ATORVASTATIN CALCIUM 20 MG TABLET PO SCH (20:01)
[2017-01-12] MEDS: QUEtiapine 25 MG TABLET. PO SCH (20:02)
[2017-01-12] MEDS: DONEPEZIL HCL 10 MG TABLET PO SCH (20:02)
--- NOTE | 2017-01-12 21:42 | PDOC ---
Exam Fabian Demential Exam: Fabian Note: Please also refer to the separate dictated note~for this date of service dictated separately.~Patient seen individually. Discussed the patient with Nursing staff reviewed the chart.~Reviewed interim history and current functioning. Reviewed vital signs,~Labs/ Radiology~and current medications noted below. Continue current treatment with the changes noted in the dictated addendum note Assessment: Vital Signs: Vital Signs Date Time Temp Pulse Resp B/P Pulse Ox O2 Delivery O2 Flow Rate FiO2 01/12/17 20:02 104 118/81 01/12/17 16:19 20 98 01/12/17 06:16 97.6 01/09/17 06:28 Room Air I&O Intake and Output 01/12/17 07:00 Intake Total 480 ml Balance 480 ml Intake Oral 480 ml Current Medications: Meds: Current Medications Donepezil HCl (Aricept) 10 mg QHS PO Last administered on 01/12/17 20:02; Start 01/08/17 at 22:00 Acetaminophen (Tylenol) 650 mg PRN Q6HRS PRN PO PAIN / TEMP; Start 01/08/17 at 21:45 Multi-Ingredient Ointment (Analgesic [place]) 1 shelia PRN QID PRN TP MUSCLE PAIN; Start 01/08/17 at 21:45 Al Hydroxide/Mg Hydroxide (Mylanta Plus Xs) 15 ml PRN AFTMEALHC PRN PO DYSPEPSIA; Start 01/08/17 at 21:45 Magnesium Hydroxide (Milk Of Magnesia) 2,400 mg PRN QHS PRN PO CONSTIPATION; Start 01/08/17 at 21:45 Olanzapine (Zyprexa Zydis) 2.5 mg PRN Q2HR PRN PO ANXIETY / AGITATION Last administered on 01/10/17 07:56; Start 01/08/17 at 22:45 Metoprolol Tartrate (Lopressor) 50 mg BID PO Last administered on 01/12/17 20: 02; Start 01/09/17 at 09:00 Atorvastatin Calcium (Lipitor) 20 mg QHS PO Last administered on 01/12/17 20: 01; Start 01/09/17 at 21:00 Quetiapine Fumarate (SEROquel) 12.5 mg QHS PO Last administered on 01/11/17 20 :15; Start 01/09/17 at 21:00; Stop 01/12/17 at 18:13; Status DC Trazodone HCl (Desyrel) 25 mg PRN QHS PRN PO INSOMNIA, MAY REPEAT X1 Last administered on 01/09/17 21:09; Start 01/09/17 at 19:30 Quetiapine Fumarate (SEROquel) 25 mg QHS PO Last administered on 01/12/17 20: 02; Start 01/12/17 at 21:00 Escitalopram Oxalate (Lexapro) 5 mg DAILY PO ; Start 01/13/17 at 09:00 Active Scripts Active Reported Aricept (Donepezil Hcl) 10 Mg Tablet 10 Mg PO QHS Metoprolol Tartrate 50 Mg Tablet 50 Mg PO BID Diagnosis: Problems: (1) Dementia with behavioral disturbance (2) Confusion (3) Fall (4) Anxiety disorder (5) Dementia in Alzheimer's disease with delusions (6) Dementia in Alzheimer's disease with depression (7) Dementia, vascular, with delusions (8) Dementia, vascular, with depression (9) Impulse control disorder JIMBO MARLEY MD Jan 12, 2017 21:42
--- NOTE | 2017-01-12 22:30 | NUR ---
Behavior Intervention Response and Plan: BIRP Note: Behavior: Assumed Care of patient, patient located in Patient Room at shift change. Patient exhibited the following behavior Wandering, Restless, Disorganized, delusions. Brief assessment on rounds of vital signs, medication needs, lab studies, and pain. Treatment plan problems:1-2/fall risk. Intervention: Patient assessed and the following interventions initiated safety checks 15 Minute Checks Cognitive Assessment , Head to toe Assessment , Medications, reorientation/redirection. Response: After interactions and interventions patient responded in the following manner, Calm , Disorganized ,Cooperative, restful. Continue to assess behaviors and condition will continue to monitor throughout the shift as needed. 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 Continue to assess patient for changes in above assessment. Monitor for medication needs, pain, and safety concerns. Hourly rounding performed to ensure safe environment.
--- NOTE | 2017-01-13 02:49 | PN ---
DATE: 01/11/2017 PSYCHIATRIC PROGRESS NOTE This is a late entry for 01/11/2017, covers elements not covered in my initial note. SUBJECTIVE: The patient has been talking to herself, not agitated, takes her medications, somewhat withdrawn and confused. REVIEW OF SYSTEMS: No CV, , pulmonary, eye, ENT system symptoms on review. Reliability poor. MENTAL STATUS EXAM: Oriented to herself. Insight, judgment, recent and remote memory, attention, concentration, fund of knowledge poor, consistent with her diagnosis. 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 LABORATORY DATA: Reviewed. IMPRESSION: Major neurocognitive disorder, Alzheimer, vascular with depression, delusion, behavioral disturbance. Rest unchanged. Insight, judgment, recent and remote memory, attention, concentration, fund of knowledge poor, consistent with her diagnosis. PLAN: Continue Aricept 10 mg a day, Seroquel 12.5 mg at bedtime, Zyprexa p.r.n., trazodone p.r.n. Start Lexapro 5 mg a day, may need to increase this in due course. JIMBO MARLEY MD DR: JEAN/filemon JOB#: [id number] / [id number]
[2017-01-13 06:31] VITALS: BP 119/66
[2017-01-13] MEDS: METOPROLOL TART IMMED RELEASE 50 MG TABLET PO SCH ×2 (09:32→20:40)
[2017-01-13] MEDS: ESCITALOPRAM 5 MG TABLET PO SCH (09:32)
--- NOTE | 2017-01-13 14:27 | NUR ---
Behavior Intervention Response and Plan: BIRP Note: Behavior: Assumed Care of patient, patient located in Patient Room at shift change. Patient exhibited the following behavior Disorganized, Social, Compliant. Brief assessment on rounds of vital signs, medication needs, lab studies, and pain. Treatment plan problems . Intervention: Patient assessed and the following interventions initiated safety checks 15 Minute Checks Head to toe Assessment , Medications , Oral Hydration. Response: After interactions and interventions patient responded in the following manner, Wandering , Interactive ,Calm. Continue to assess behaviors and condition will continue to monitor throughout the shift as needed. 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 Continue to assess patient for changes in above assessment. Monitor for medication needs, pain, and safety concerns. Hourly rounding performed to ensure safe environment.
[2017-01-13] MEDS: ATORVASTATIN CALCIUM 20 MG TABLET PO SCH (20:32)
[2017-01-13] MEDS: QUEtiapine 25 MG TABLET. PO SCH (20:33)
[2017-01-13] MEDS: DONEPEZIL HCL 10 MG TABLET PO SCH (20:40)
--- NOTE | 2017-01-13 20:40 | NUR ---
Behavior Intervention Response and Plan: BIRP Note: Behavior: Assumed Care of patient, patient located in Patient Room at shift change. Patient exhibited the following behavior Hallucinating, Delusions, Interactive. Brief assessment on rounds of vital signs, medication needs, lab studies, and pain. Treatment plan problems . Intervention: Patient assessed and the following interventions initiated safety checks 15 Minute Checks Cognitive Assessment , Head to toe Assessment , Medications. Response: After interactions and interventions patient responded in the following manner, Hallucinating , Delusions ,Interactive. Continue to assess behaviors and condition will continue to monitor throughout the shift as needed. 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 Continue to assess patient for changes in above assessment. Monitor for medication needs, pain, and safety concerns. Hourly rounding performed to ensure safe environment.
[2017-01-13] MEDS: MIRTAZAPINE 7.5 MG TABLET. PO SCH (20:43)
--- NOTE | 2017-01-13 21:09 | PDOC ---
Exam Fabian Demential Exam: Fabian Note: Please also refer to the separate dictated note~for this date of service dictated separately.~Patient seen individually. Discussed the patient with Nursing staff reviewed the chart.~Reviewed interim history and current functioning. Reviewed vital signs,~Labs/ Radiology~and current medications noted below. Continue current treatment with the changes noted in the dictated addendum note Assessment: Vital Signs: Vital Signs Date Time Temp Pulse Resp B/P Pulse Ox O2 Delivery O2 Flow Rate FiO2 01/13/17 20:40 75 143/70 01/13/17 06:31 97.0 16 96 01/09/17 06:28 Room Air I&O Intake and Output 01/13/17 07:00 Intake Total 960 ml Balance 960 ml Intake Oral 960 ml Current Medications: Meds: Current Medications Donepezil HCl (Aricept) 10 mg QHS PO Last administered on 01/13/17 20:40; Start 01/08/17 at 22:00 Acetaminophen (Tylenol) 650 mg PRN Q6HRS PRN PO PAIN / TEMP; Start 01/08/17 at 21:45 Multi-Ingredient Ointment (Analgesic [place]) 1 shelia PRN QID PRN TP MUSCLE PAIN; Start 01/08/17 at 21:45 Al Hydroxide/Mg Hydroxide (Mylanta Plus Xs) 15 ml PRN AFTMEALHC PRN PO DYSPEPSIA; Start 01/08/17 at 21:45 Magnesium Hydroxide (Milk Of Magnesia) 2,400 mg PRN QHS PRN PO CONSTIPATION; Start 01/08/17 at 21:45 Olanzapine (Zyprexa Zydis) 2.5 mg PRN Q2HR PRN PO ANXIETY / AGITATION Last administered on 01/10/17 07:56; Start 01/08/17 at 22:45 Metoprolol Tartrate (Lopressor) 50 mg BID PO Last administered on 01/13/17 20: 40; Start 01/09/17 at 09:00 Atorvastatin Calcium (Lipitor) 20 mg QHS PO Last administered on 01/13/17 20: 32; Start 01/09/17 at 21:00 Quetiapine Fumarate (SEROquel) 12.5 mg QHS PO Last administered on 01/11/17 20 :15; Start 01/09/17 at 21:00; Stop 01/12/17 at 18:13; Status DC Trazodone HCl (Desyrel) 25 mg PRN QHS PRN PO INSOMNIA, MAY REPEAT X1 Last administered on 01/09/17 21:09; Start 01/09/17 at 19:30 Quetiapine Fumarate (SEROquel) 25 mg QHS PO Last administered on 01/13/17 20: 33; Start 01/12/17 at 21:00 Escitalopram Oxalate (Lexapro) 5 mg DAILY PO Last administered on 01/13/17 09: 32; Start 01/13/17 at 09:00 Mirtazapine (Remeron) 7.5 mg QHS PO Last administered on 01/13/17 20:43; Start 01/13/17 at 21:00 Active Scripts Active Reported Aricept (Donepezil Hcl) 10 Mg Tablet 10 Mg PO QHS Metoprolol Tartrate 50 Mg Tablet 50 Mg PO BID Diagnosis: Problems: (1) Dementia with behavioral disturbance (2) Confusion (3) Fall (4) Anxiety disorder (5) Dementia in Alzheimer's disease with delusions (6) Dementia in Alzheimer's disease with depression (7) Dementia, vascular, with delusions (8) Dementia, vascular, with depression (9) Impulse control disorder JIMBO MARLEY MD Jan 13, 2017 21:09
[2017-01-14 06:46] VITALS: BP 137/68
--- NOTE | 2017-01-14 07:50 | PN ---
DATE: 01/12/2017 SUBJECTIVE: This is late entry for 01/12/2017 covers elements not covered in my initial note. The patient remains confused talking about wanting to go to [place] because she is the [place]. She goes back in years about an event that might have happened in her distant past. She is exit seeking, tried to exit earlier in the day redirected. Previous evening she was resistive to taking medications. REVIEW OF SYSTEMS: No CV, , pulmonary, eye, or ENT system symptoms on review. Reliability poor. MENTAL STATUS EXAM: Oriented to herself. Insight, judgment, recent and remote memory, attention, concentration, fund of knowledge poor, consistent with her diagnosis. LABORATORY DATA: Reviewed. IMPRESSION: Major neurocognitive disorder, Alzheimer, vascular with depression, delusion, behavioral disturbance; and anxiety disorder, unspecified. Rest diagnoses unchanged. PLAN: Seroquel was increased to 25 mg a day. Lexapro added 5 mg a day. She is on Aricept 10 mg a day, Zyprexa p.r.n., and trazodone p.r.n. Adjust further as clinically indicated. JIMBO MARLEY MD DR: JEAN/filemon JOB#: [id number] / [id number]
[2017-01-14] MEDS: ESCITALOPRAM 5 MG TABLET PO SCH (08:06)
[2017-01-14] MEDS: METOPROLOL TART IMMED RELEASE 50 MG TABLET PO SCH ×2 (08:06→19:41)
[2017-01-14 09:51] LABS: ALBUMIN 3.7 g/dL (3.4-5.0); ALBUMIN/GLOBULIN RATIO 0.9 (1.0-1.7); CALCIUM 10.3 mg/dL (8.5-10.1); CREATININE 1.2 mg/dL (0.6-1.0); GFR 43.6; POTASSIUM 3.7 mmol/L (3.5-5.1); TOTAL BILIRUBIN 0.9 mg/dL (0.2-1.0); TOTAL PROTEIN 7.8 g/dL (6.4-8.2)
--- NOTE | 2017-01-14 10:38 | NUR ---
Behavior Intervention Response and Plan: BIRP Note: Behavior: Assumed Care of patient, patient located in Patient Room at shift change. Patient exhibited the following behavior Disorganized, Social, Calm. Brief assessment on rounds of vital signs, medication needs, lab studies, and pain. Treatment plan problems . Intervention: Patient assessed and the following interventions initiated safety checks 15 Minute Checks Head to toe Assessment , Medications , Oral Hydration. Response: After interactions and interventions patient responded in the following manner, Cooperative , Hallucinating ,Delusions. Continue to assess behaviors and condition will continue to monitor throughout the shift as needed. 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 Continue to assess patient for changes in above assessment. Monitor for medication needs, pain, and safety concerns. Hourly rounding performed to ensure safe environment.
--- NOTE | 2017-01-14 11:15 | NUR ---
THERAPEUTIC RECREATION GROUP NOTE TITLE :Movement to Music: Flexibility ACTIVITY : Movement/ Exercise GOAL : Increase morale, attention, flexibility. Decrease stress/anxiety. DURATION : 40 Minutes RESPONSE : Full participation. Pt. needed no prompting to stay on task. She energetically participated with a smile on her face the entire time.
[2017-01-14 13:26] LABS: BASO # 0.1 x10^3/uL (0.0-0.2); BASO % 1 % (0-3); EOS # 0.1 x10^3/uL (0.0-0.7); EOS % 1 % (0-3); HEMATOCRIT 43.7 % (36.0-47.0); HEMOGLOBIN 14.5 g/dL (12.0-15.5); LYMPH # 1.6 x10^3/uL (1.0-4.8); LYMPH % 20 % (24-48); MEAN CORPUSCULAR HEMOGLOBIN 33 pg (25-35); MEAN CORPUSCULAR HGB CONC 33 g/dL (31-37); MEAN CORPUSCULAR VOLUME 99 fL (79-100); MONO # 0.5 x10^3/uL (0.0-1.1); MONO % 6 % (0-9); NEUT # 5.9 x10^3uL (1.8-7.7); NEUT % 73 % (31-73); PLATELET COUNT 232 x10^3/uL (140-400); RED BLOOD COUNT 4.41 x10^6/uL (3.50-5.40); RED CELL DISTRIBUTION WIDTH 14.5 % (11.5-14.5); WHITE BLOOD COUNT 8.1 x10^3/uL (4.0-11.0)
--- NOTE | 2017-01-14 14:00 | NUR ---
THERAPEUTIC RECREATION GROUP NOTE TITLE :Balloon Bop with Noodles ACTIVITY : Activities and Games GOAL : Increase socialization and alertness. Maintain/improve mental and physical functioning. DURATION : 30 minutes RESPONSE : No participation
[2017-01-14 15:49] VITALS: BP 113/70
[2017-01-14] MEDS: DONEPEZIL HCL 10 MG TABLET PO SCH (19:41)
[2017-01-14] MEDS: QUEtiapine 25 MG TABLET. PO SCH (19:41)
[2017-01-14] MEDS: ATORVASTATIN CALCIUM 20 MG TABLET PO SCH (19:41)
[2017-01-14] MEDS: MIRTAZAPINE 7.5 MG TABLET. PO SCH (19:41)
--- NOTE | 2017-01-14 21:11 | PDOC ---
Exam Fabian Demential Exam: Fabian Note: Please also refer to the separate dictated note~for this date of service dictated separately.~Patient seen individually. Discussed the patient with Nursing staff reviewed the chart.~Reviewed interim history and current functioning. Reviewed vital signs,~Labs/ Radiology~and current medications noted below. Continue current treatment with the changes noted in the dictated addendum note Assessment: Vital Signs: Vital Signs Date Time Temp Pulse Resp B/P Pulse Ox O2 Delivery O2 Flow Rate FiO2 01/14/17 19:41 62 113/70 01/14/17 15:49 97.9 18 99 01/09/17 06:28 Room Air I&O Intake and Output 01/14/17 07:00 Intake Total 120 ml Balance 120 ml Intake Oral 120 ml Labs: Laboratory Tests Test 01/14/17 09:29 White Blood Count 8.1x10^3/uL (4.0-11.0) Red Blood Count 4.41x10^6/uL (3.50-5.40) Hemoglobin 14.5g/dL (12.0-15.5) Hematocrit 43.7% (36.0-47.0) Mean Corpuscular Volume 99fL (79-100) Mean Corpuscular Hemoglobin 33pg (25-35) Mean Corpuscular Hemoglobin Concent 33g/dL (31-37) Red Cell Distribution Width 14.5% (11.5-14.5) Platelet Count 232x10^3/uL (140-400) Neutrophils (%) (Auto) 73% (31-73) Lymphocytes (%) (Auto) 20% (24-48) L Monocytes (%) (Auto) 6% (0-9) Eosinophils (%) (Auto) 1% (0-3) Basophils (%) (Auto) 1% (0-3) Neutrophils # (Auto) 5.9x10^3uL (1.8-7.7) Lymphocytes # (Auto) 1.6x10^3/uL (1.0-4.8) Monocytes # (Auto) 0.5x10^3/uL (0.0-1.1) Eosinophils # (Auto) 0.1x10^3/uL (0.0-0.7) Basophils # (Auto) 0.1x10^3/uL (0.0-0.2) Sodium Level 143mmol/L (136-145) Potassium Level 3.7mmol/L (3.5-5.1) Chloride Level 105mmol/L (98-107) Carbon Dioxide Level 31mmol/L (21-32) Anion Gap 7 (6-14) Blood Urea Nitrogen 20mg/dL (7-20) Creatinine 1.2mg/dL (0.6-1.0) H Estimated GFR (Cockcroft-Gault) 43.6 BUN/Creatinine Ratio 17 (6-20) Glucose Level 160mg/dL (70-99) H Calcium Level 10.3mg/dL (8.5-10.1) H Total Bilirubin 0.9mg/dL (0.2-1.0) Aspartate Amino Transferase (AST) 25U/L (15-37) Alanine Aminotransferase (ALT) 22U/L (14-59) Alkaline Phosphatase 97U/L (46-116) Total Protein 7.8g/dL (6.4-8.2) Albumin 3.7g/dL (3.4-5.0) Albumin/Globulin Ratio 0.9 (1.0-1.7) L Current Medications: Meds: Current Medications Donepezil HCl (Aricept) 10 mg QHS PO Last administered on 01/14/17 19:41; Start 01/08/17 at 22:00 Acetaminophen (Tylenol) 650 mg PRN Q6HRS PRN PO PAIN / TEMP; Start 01/08/17 at 21:45 Multi-Ingredient Ointment (Analgesic [place]) 1 shelia PRN QID PRN TP MUSCLE PAIN; Start 01/08/17 at 21:45 Al Hydroxide/Mg Hydroxide (Mylanta Plus Xs) 15 ml PRN AFTMEALHC PRN PO DYSPEPSIA; Start 01/08/17 at 21:45 Magnesium Hydroxide (Milk Of Magnesia) 2,400 mg PRN QHS PRN PO CONSTIPATION; Start 01/08/17 at 21:45 Olanzapine (Zyprexa Zydis) 2.5 mg PRN Q2HR PRN PO ANXIETY / AGITATION Last administered on 01/10/17 07:56; Start 01/08/17 at 22:45 Metoprolol Tartrate (Lopressor) 50 mg BID PO Last administered on 01/14/17 19: 41; Start 01/09/17 at 09:00 Atorvastatin Calcium (Lipitor) 20 mg QHS PO Last administered on 01/14/17 19: 41; Start 01/09/17 at 21:00 Quetiapine Fumarate (SEROquel) 12.5 mg QHS PO Last administered on 01/11/17 20 :15; Start 01/09/17 at 21:00; Stop 01/12/17 at 18:13; Status DC Trazodone HCl (Desyrel) 25 mg PRN QHS PRN PO INSOMNIA, MAY REPEAT X1 Last administered on 01/09/17 21:09; Start 01/09/17 at 19:30 Quetiapine Fumarate (SEROquel) 25 mg QHS PO Last administered on 01/14/17 19: 41; Start 01/12/17 at 21:00 Escitalopram Oxalate (Lexapro) 5 mg DAILY PO Last administered on 01/14/17 08: 06; Start 01/13/17 at 09:00 Mirtazapine (Remeron) 7.5 mg QHS PO Last administered on 01/14/17 19:41; Start 01/13/17 at 21:00 Active Scripts Active Reported Aricept (Donepezil Hcl) 10 Mg Tablet 10 Mg PO QHS Metoprolol Tartrate 50 Mg Tablet 50 Mg PO BID Diagnosis: Problems: (1) Dementia with behavioral disturbance (2) Confusion (3) Fall (4) Anxiety disorder (5) Dementia in Alzheimer's disease with delusions (6) Dementia in Alzheimer's disease with depression (7) Dementia, vascular, with delusions (8) Dementia, vascular, with depression (9) Impulse control disorder JIMBO MARLEY MD Jan 14, 2017 21:11
--- NOTE | 2017-01-15 04:39 | NUR ---
Behavior Intervention Response and Plan: BIRP Note: Behavior: Assumed Care of patient, patient located in Day Room at shift change. Patient exhibited the following behavior Calm, Compliant, Cooperative. Brief assessment on rounds of vital signs, medication needs, lab studies, and pain. Treatment plan problems Dementia with BD and Fall Risk. Intervention: Patient assessed and the following interventions initiated safety checks 15 Minute Checks Cognitive Assessment , Head to toe Assessment , Medications. Response: After interactions and interventions patient responded in the following manner, Calm , Compliant ,Cooperative. Continue to assess behaviors and condition will continue to monitor throughout the shift as needed. 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 Continue to assess patient for changes in above assessment. Monitor for medication needs, pain, and safety concerns. Hourly rounding performed to ensure safe environment.
[2017-01-15 05:54] VITALS: BP 142/69
[2017-01-15] MEDS: ESCITALOPRAM 5 MG TABLET PO SCH (07:46)
[2017-01-15] MEDS: METOPROLOL TART IMMED RELEASE 50 MG TABLET PO SCH ×2 (07:46→19:00)
--- NOTE | 2017-01-15 09:04 | NUR ---
Behavior Intervention Response and Plan: BIRP Note: Behavior: Assumed Care of patient, patient located in Hallway at shift change. Patient exhibited the following behavior Disorganized, Irritable, Delusions. Brief assessment on rounds of vital signs, medication needs, lab studies, and pain. Treatment plan problems . Intervention: Patient assessed and the following interventions initiated safety checks 15 Minute Checks Cognitive Assessment , Head to toe Assessment , Medications. Response: After interactions and interventions patient responded in the following manner, Disorganized , Compliant ,Delusions. Continue to assess behaviors and condition will continue to monitor throughout the shift as needed. 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 Continue to assess patient for changes in above assessment. Monitor for medication needs, pain, and safety concerns. Hourly rounding performed to ensure safe environment.
[2017-01-15 15:41] VITALS: BP 117/68
--- NOTE | 2017-01-15 17:08 | NUR ---
pt up adl to meals. looking for parents in locked shower room. has been compliant with meds and cares. redirectable.
[2017-01-15] MEDS: MIRTAZAPINE 7.5 MG TABLET. PO SCH (19:00)
[2017-01-15] MEDS: DONEPEZIL HCL 10 MG TABLET PO SCH (19:00)
[2017-01-15] MEDS: QUEtiapine 25 MG TABLET. PO SCH (19:01)
[2017-01-15] MEDS: ATORVASTATIN CALCIUM 20 MG TABLET PO SCH (19:01)
--- NOTE | 2017-01-16 01:37 | PDOC ---
Exam Fabian Demential Exam: Fabian Note: Please also refer to the separate dictated note~for this date of service dictated separately.~Patient seen individually. Discussed the patient with Nursing staff reviewed the chart.~Reviewed interim history and current functioning. Reviewed vital signs,~Labs/ Radiology~and current medications noted below. Continue current treatment with the changes noted in the dictated addendum note Assessment: Vital Signs: Vital Signs Date Time Temp Pulse Resp B/P Pulse Ox O2 Delivery O2 Flow Rate FiO2 01/15/17 19:00 64 117/68 01/15/17 15:41 97.1 16 97 Room Air I&O Intake and Output 01/15/17 07:00 Intake Total 840 ml Balance 840 ml Intake Oral 840 ml # Voids 2 Labs: Laboratory Tests Test 01/14/17 21:20 Glucose (Fingerstick) 176mg/dL (70-99) H Current Medications: Meds: Current Medications Donepezil HCl (Aricept) 10 mg QHS PO Last administered on 01/15/17 19:00; Start 01/08/17 at 22:00 Acetaminophen (Tylenol) 650 mg PRN Q6HRS PRN PO PAIN / TEMP; Start 01/08/17 at 21:45 Multi-Ingredient Ointment (Analgesic [place]) 1 shelia PRN QID PRN TP MUSCLE PAIN; Start 01/08/17 at 21:45 Al Hydroxide/Mg Hydroxide (Mylanta Plus Xs) 15 ml PRN AFTMEALHC PRN PO DYSPEPSIA; Start 01/08/17 at 21:45 Magnesium Hydroxide (Milk Of Magnesia) 2,400 mg PRN QHS PRN PO CONSTIPATION; Start 01/08/17 at 21:45 Olanzapine (Zyprexa Zydis) 2.5 mg PRN Q2HR PRN PO ANXIETY / AGITATION Last administered on 01/10/17 07:56; Start 01/08/17 at 22:45 Metoprolol Tartrate (Lopressor) 50 mg BID PO Last administered on 01/15/17 19: 00; Start 01/09/17 at 09:00 Atorvastatin Calcium (Lipitor) 20 mg QHS PO Last administered on 01/15/17 19: 01; Start 01/09/17 at 21:00 Quetiapine Fumarate (SEROquel) 12.5 mg QHS PO Last administered on 01/11/17 20 :15; Start 01/09/17 at 21:00; Stop 01/12/17 at 18:13; Status DC Trazodone HCl (Desyrel) 25 mg PRN QHS PRN PO INSOMNIA, MAY REPEAT X1 Last administered on 01/09/17 21:09; Start 01/09/17 at 19:30 Quetiapine Fumarate (SEROquel) 25 mg QHS PO Last administered on 01/15/17 19: 01; Start 01/12/17 at 21:00 Escitalopram Oxalate (Lexapro) 5 mg DAILY PO Last administered on 01/15/17 07: 46; Start 01/13/17 at 09:00 Mirtazapine (Remeron) 7.5 mg QHS PO Last administered on 01/15/17 19:00; Start 01/13/17 at 21:00 Active Scripts Active Reported Aricept (Donepezil Hcl) 10 Mg Tablet 10 Mg PO QHS Metoprolol Tartrate 50 Mg Tablet 50 Mg PO BID Diagnosis: Problems: (1) Dementia with behavioral disturbance (2) Confusion (3) Fall (4) Anxiety disorder (5) Dementia in Alzheimer's disease with delusions (6) Dementia in Alzheimer's disease with depression (7) Dementia, vascular, with delusions (8) Dementia, vascular, with depression (9) Impulse control disorder JIMBO MARLEY MD Jan 15, 2017 21:02
--- NOTE | 2017-01-16 03:32 | NUR ---
Behavior Intervention Response and Plan: BIRP Note: Behavior: Assumed Care of patient, patient located in Patient Room at shift change. Patient exhibited the following behavior Disorganized, Social, Calm. Brief assessment on rounds of vital signs, medication needs, lab studies, and pain. Treatment plan problems . Intervention: Patient assessed and the following interventions initiated safety checks 15 Minute Checks Head to toe Assessment , Medications , Oral Hydration. Response: After interactions and interventions patient responded in the following manner, Cooperative , Hallucinating ,Delusions. Continue to assess behaviors and condition will continue to monitor throughout the shift as needed. 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 Continue to assess patient for changes in above assessment. Monitor for medication needs, pain, and safety concerns. Hourly rounding performed to ensure safe environment. 1-2
[2017-01-16 06:02] VITALS: BP 151/62
[2017-01-16] MEDS: METOPROLOL TART IMMED RELEASE 50 MG TABLET PO SCH ×2 (08:07→20:24)
[2017-01-16] MEDS: ESCITALOPRAM 5 MG TABLET PO SCH ×2 (08:08→09:00)
--- NOTE | 2017-01-16 09:59 | PN ---
DATE: 01/13/2017 PSYCHIATRIC PROGRESS NOTE This is a late entry for 01/13/2017, covers elements not covered in my initial note. SUBJECTIVE: Per nursing report, the patient has been quite confused, agitated, barricades herself in her room. Was striking out at staff, physically. Appetite poor. Refused to visit with her daughter, somewhat withdrawn, oblivious to surroundings. REVIEW OF SYSTEMS: No CV, , pulmonary, eye, ENT system symptoms on review. Reliability poor. MENTAL STATUS EXAM: Oriented to herself. Insight, judgment, recent and remote memory, attention, concentration, fund of knowledge poor, consistent with her diagnosis mentioned in my initial note. PLAN: Add Remeron 7.5 mg p.o. at bedtime both to help with the insomnia and anxiety. Continue Aricept 10 mg a day, Zyprexa p.r.n., trazodone, Lexapro 5 mg a day, Seroquel 25 mg at bedtime, may need to add a.m. Seroquel as well if needed. MAN Brooks MARLEY MD DR: JEAN/filemon JOB#: [id number] / [id number]
--- NOTE | 2017-01-16 11:11 | NUR ---
Behavior Intervention Response and Plan: BIRP Note: Behavior: Assumed Care of patient, patient located in Hallway at shift change. Patient exhibited the following behavior Disorganized, Irritable, Delusions. Brief assessment on rounds of vital signs, medication needs, lab studies, and pain. Treatment plan problems . Intervention: Patient assessed and the following interventions initiated safety checks 15 Minute Checks Cognitive Assessment , Head to toe Assessment , Medications. Response: After interactions and interventions patient responded in the following manner, Disorganized , Compliant ,Delusions. Continue to assess behaviors and condition will continue to monitor throughout the shift as needed. 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 Continue to assess patient for changes in above assessment. Monitor for medication needs, pain, and safety concerns. Hourly rounding performed to ensure safe environment.
--- NOTE | 2017-01-16 11:13 | PN ---
DATE: 01/14/2017 PSYCHIATRIC PROGRESS NOTE This is a late entry for 01/14/2017, covers elements not covered in my initial note. SUBJECTIVE: The patient was staffed at a treatment team meeting morning of 01/14/2017 with her daughter, Alesia, with the nurse attending as well. We reviewed the patient's history at length. She is confused, wandering and exit seeking. At times seems to hallucinate, seeing her parents and mother and father outside the door, fixated on this appetite 50-75%, sleeping about 6 hours. Daughter explained most of the symptoms started and worsened after her CVA and when the daughter visited the other day, the patient was having "both sides of a conversation with no one around her." REVIEW OF SYSTEMS: No CV, , pulmonary, eye, ENT system symptoms on review. Reliability poor. MENTAL STATUS EXAM: Oriented to herself. Insight, judgment, recent and remote memory, attention, concentration, fund of knowledge poor, consistent with her diagnosis mentioned in my nitial note. IMPRESSION: Major neurocognitive disorder, Alzheimer, vascular with depression, delusions and behavioral disturbance. Rest unchanged. PLAN: Check CBC, CMP. Maintain Remeron 7.5 mg at bedtime. Continue rest of psychotropics, adjust as indicated, may need to increase Seroquel if psychotic symptoms persist. MAN Brooks MARLEY MD DR: JEAN/filemon JOB#: [id number] / [id number]
--- NOTE | 2017-01-16 16:29 | NUR ---
pt refused to get up breakfast. Told staff to get the hell out. Family came at noon. pt refused meds. came out to day room to eat lunch with much encouragement from family. still refused meds. pt slapped staff when she was performing pt care to another peer. pt redirected.
[2017-01-16 16:31] VITALS: BP 122/87
[2017-01-16] MEDS: MIRTAZAPINE 7.5 MG TABLET. PO SCH (20:23)
[2017-01-16] MEDS: DONEPEZIL HCL 10 MG TABLET PO SCH (20:25)
[2017-01-16] MEDS: ATORVASTATIN CALCIUM 20 MG TABLET PO SCH (20:25)
[2017-01-16] MEDS ORDERED: QUEtiapine 50 MG TABLET. PO SCH (21:00)
--- NOTE | 2017-01-16 22:27 | PDOC ---
Exam Fabian Demential Exam: Fabian Note: Please also refer to the separate dictated note~for this date of service dictated separately.~Patient seen individually. Discussed the patient with Nursing staff reviewed the chart.~Reviewed interim history and current functioning. Reviewed vital signs,~Labs/ Radiology~and current medications noted below. Continue current treatment with the changes noted in the dictated addendum note Assessment: Vital Signs: Vital Signs Date Time Temp Pulse Resp B/P Pulse Ox O2 Delivery O2 Flow Rate FiO2 01/16/17 20:24 58 122/87 01/16/17 06:02 97.8 20 95 01/15/17 15:41 Room Air I&O Intake and Output 01/16/17 07:00 Intake Total 1310 ml Balance 1310 ml Intake Oral 1310 ml # Voids 1 Current Medications: Meds: Current Medications Donepezil HCl (Aricept) 10 mg QHS PO Last administered on 01/16/17 20:25; Start 01/08/17 at 22:00 Acetaminophen (Tylenol) 650 mg PRN Q6HRS PRN PO PAIN / TEMP; Start 01/08/17 at 21:45 Multi-Ingredient Ointment (Analgesic [place]) 1 shelia PRN QID PRN TP MUSCLE PAIN; Start 01/08/17 at 21:45 Al Hydroxide/Mg Hydroxide (Mylanta Plus Xs) 15 ml PRN AFTMEALHC PRN PO DYSPEPSIA; Start 01/08/17 at 21:45 Magnesium Hydroxide (Milk Of Magnesia) 2,400 mg PRN QHS PRN PO CONSTIPATION; Start 01/08/17 at 21:45 Olanzapine (Zyprexa Zydis) 2.5 mg PRN Q2HR PRN PO ANXIETY / AGITATION Last administered on 01/10/17 07:56; Start 01/08/17 at 22:45 Metoprolol Tartrate (Lopressor) 50 mg BID PO Last administered on 01/15/17 19: 00; Start 01/09/17 at 09:00 Atorvastatin Calcium (Lipitor) 20 mg QHS PO Last administered on 01/16/17 20: 25; Start 01/09/17 at 21:00 Quetiapine Fumarate (SEROquel) 12.5 mg QHS PO Last administered on 01/11/17 20 :15; Start 4/22/17 at 21:00; Stop 01/12/17 at 18:13; Status DC Trazodone HCl (Desyrel) 25 mg PRN QHS PRN PO INSOMNIA, MAY REPEAT X1 Last administered on 01/09/17 21:09; Start 01/09/17 at 19:30 Quetiapine Fumarate (SEROquel) 25 mg QHS PO Last administered on 01/15/17 19: 01; Start 01/12/17 at 21:00; Stop 01/16/17 at 19:43; Status DC Escitalopram Oxalate (Lexapro) 5 mg DAILY PO Last administered on 01/15/17 07: 46; Start 01/13/17 at 09:00 Mirtazapine (Remeron) 7.5 mg QHS PO Last administered on 01/16/17 20:23; Start 01/13/17 at 21:00 Quetiapine Fumarate (SEROquel) 50 mg QHS PO Last administered on 01/16/17 20: 26; Start 01/16/17 at 21:00 Active Scripts Active Reported Aricept (Donepezil Hcl) 10 Mg Tablet 10 Mg PO QHS Metoprolol Tartrate 50 Mg Tablet 50 Mg PO BID Diagnosis: Problems: (1) Dementia with behavioral disturbance (2) Confusion (3) Fall (4) Anxiety disorder (5) Dementia in Alzheimer's disease with delusions (6) Dementia in Alzheimer's disease with depression (7) Dementia, vascular, with delusions (8) Dementia, vascular, with depression (9) Impulse control disorder JIMBO MARLEY MD Jan 16, 2017 22:27
--- NOTE | 2017-01-16 23:02 | NUR ---
Behavior Intervention Response and Plan: BIRP Note: Behavior: Assumed Care of patient, patient located in Day Room at shift change. Patient exhibited the following behavior Irritable, Resistive, Hallucinating. Brief assessment on rounds of vital signs, medication needs, lab studies, and pain. Treatment plan problems Dementia with BD and Fall Risk. Intervention: Patient assessed and the following interventions initiated safety checks 15 Minute Checks Cognitive Assessment , Head to toe Assessment , Medications. Response: After interactions and interventions patient responded in the following manner, , Irritable ,Non Compliant. Continue to assess behaviors and condition will continue to monitor throughout the shift as needed. 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 Continue to assess patient for changes in above assessment. Monitor for medication needs, pain, and safety concerns. Hourly rounding performed to ensure safe environment.
--- NOTE | 2017-01-17 00:04 | NUR ---
Nursing Note: Pt noted with increased hallucination and medication non-compliance this HS, Medications hidden in Ice cream and consumed, pt then ambulated to the TV counter, Knelt down, Sat on the floor then layed down. Staff over to assist pt to bed, pt refusing to stand, VS checked and stable with BP 138/72 and Apical pulse 64, Pupils 3mm and brisk to react to light bilaterally. Pt assisted into w/c then to bed. No further behaviors noted at this time.
[2017-01-17 06:09] VITALS: BP 132/76
[2017-01-17] MEDS: METOPROLOL TART IMMED RELEASE 50 MG TABLET PO SCH ×3 (07:30→19:55)
[2017-01-17] MEDS: ESCITALOPRAM 5 MG TABLET PO SCH ×2 (07:30→09:00)
--- NOTE | 2017-01-17 10:39 | NUR ---
Behavior Intervention Response and Plan: BIRP Note: Behavior: Assumed Care of patient, patient located in Hallway at shift change. Patient exhibited the following behavior Disorganized, Irritable, Delusions. Brief assessment on rounds of vital signs, medication needs, lab studies, and pain. Treatment plan problems . Intervention: Patient assessed and the following interventions initiated safety checks 15 Minute Checks Cognitive Assessment , Head to toe Assessment , Medications. Response: After interactions and interventions patient responded in the following manner, Disorganized , Compliant ,Delusions. Continue to assess behaviors and condition will continue to monitor throughout the shift as needed. 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 Continue to assess patient for changes in above assessment. Monitor for medication needs, pain, and safety concerns. Hourly rounding performed to ensure safe environment.
[2017-01-17 17:42] VITALS: BP 117/75
--- NOTE | 2017-01-17 17:47 | NUR ---
pt slept thru breakfast. up for lunch refused meds. stated Dr Razo told her not to take them. Talks to people that are not there and answers for them. very irritable.
[2017-01-17] MEDS: DONEPEZIL HCL 10 MG TABLET PO SCH (19:54)
[2017-01-17] MEDS: MIRTAZAPINE 7.5 MG TABLET. PO SCH (19:55)
[2017-01-17] MEDS: ATORVASTATIN CALCIUM 20 MG TABLET PO SCH (19:55)
[2017-01-17] MEDS: risperiDONE 0.25 MG TABLET. PO SCH (19:57)
--- NOTE | 2017-01-17 22:39 | NUR ---
Behavior Intervention Response and Plan: BIRP Note: Behavior: Assumed Care of patient, patient located in Day Room at shift change. Patient exhibited the following behavior Calm, Defensive, Non Compliant. Brief assessment on rounds of vital signs, medication needs, lab studies, and pain. Treatment plan problems :1-2 Intervention: Patient assessed and the following interventions initiated safety checks 15 Minute Checks Cognitive Assessment , Head to toe Assessment , Medications. Response: After interactions and interventions patient responded in the following manner, Delusions , Hallucinating ,Non Compliant with Meds. Continue to assess behaviors and condition will continue to monitor throughout the shift as needed. When pt was offered her HS meds whole pt stated "...no, Dr Razo said I didn't have to take any medicine...." She then proceeded to ask Dr Spencer "I don't have to take these do I?" And answered herself " No you don't." She then looked @ me & stated: "See I told you so." Pt received her HS meds crushed in ice-cream. 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 Continue to assess patient for changes in above assessment. Monitor for medication needs, pain, and safety concerns. Hourly rounding performed to ensure safe environment.
--- NOTE | 2017-01-18 03:35 | PN ---
DATE: 01/15/2017 This is a late entry of 01/15/2017, covers elements not covered in my initial note. SUBJECTIVE: The patient remains confused, sat herself on the floor, no injuries noted, believes the year is 1971, tearful, depressed at times. REVIEW OF SYSTEMS: No CV, , pulmonary, eye, ENT system symptoms on review. I met with her in her room. Reliability poor. MENTAL STATUS EXAM: Oriented to herself. Insight, judgment, recent and remote memory, attention, concentration, fund of knowledge poor consistent with her diagnosis as mentioned in my initial note. PLAN: Continue current psychotropics mentioned in my initial note. Adjust as indicated clinically. MAN Brooks MARLEY MD DR: JEAN/filemon JOB#: [id number] / [id number]
[2017-01-18 06:08] VITALS: BP 146/66
[2017-01-18] MEDS: METOPROLOL TART IMMED RELEASE 50 MG TABLET PO SCH ×2 (08:50→19:19)
[2017-01-18] MEDS: ESCITALOPRAM 5 MG/5 ML PO SCH (08:54)
[2017-01-18] MEDS ORDERED: ESCITALOPRAM 10 MG TABLET. PO SCH ×2 (09:00→21:00)
--- NOTE | 2017-01-18 10:00 | NUR ---
Behavior Intervention Response and Plan: BIRP Note: Behavior: Assumed Care of patient, patient located in Hallway at shift change. Patient exhibited the following behavior Disorganized, Compliant, Delusions. Brief assessment on rounds of vital signs, medication needs, lab studies, and pain. Treatment plan problems . Intervention: Patient assessed and the following interventions initiated safety checks 15 Minute Checks Call andrade in reach , Medications , Personal Alarm in place. Response: After interactions and interventions patient responded in the following manner, Calm , Motor Retardation ,Delusions. Continue to assess behaviors and condition will continue to monitor throughout the shift as needed. 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 Continue to assess patient for changes in above assessment. Monitor for medication needs, pain, and safety concerns. Hourly rounding performed to ensure safe environment.
--- NOTE | 2017-01-18 13:07 | NUR ---
SW received call from PT's DPOA/dtrAlicia regarding possible facilities for placement. Alicia provided permission for [facility] to send out referral info to [facility] and [place]. Family prefers placement in the /[place] area, but understand there is limited options.
[2017-01-18 15:48] VITALS: BP 147/84
[2017-01-18] MEDS: ATORVASTATIN CALCIUM 20 MG TABLET PO SCH (19:19)
[2017-01-18] MEDS: MIRTAZAPINE 7.5 MG TABLET. PO SCH (19:20)
[2017-01-18] MEDS: risperiDONE 0.25 MG TABLET. PO SCH (19:20)
[2017-01-18] MEDS: DONEPEZIL HCL 10 MG TABLET PO SCH (19:20)
--- NOTE | 2017-01-18 20:43 | PDOC ---
Exam Fabian Demential Exam: Fabian Note: Please also refer to the separate dictated note~for this date of service dictated separately.~Patient seen individually. Discussed the patient with Nursing staff reviewed the chart.~Reviewed interim history and current functioning. Reviewed vital signs,~Labs/ Radiology~and current medications noted below. Continue current treatment with the changes noted in the dictated addendum note Assessment: Vital Signs: Vital Signs Date Time Temp Pulse Resp B/P Pulse Ox O2 Delivery O2 Flow Rate FiO2 01/18/17 19:19 69 147/84 01/18/17 15:48 97.7 18 97 01/15/17 15:41 Room Air I&O Intake and Output 01/18/17 07:00 Intake Total 480 ml Balance 480 ml Intake Oral 480 ml Current Medications: Meds: Current Medications Donepezil HCl (Aricept) 10 mg QHS PO Last administered on 01/18/17 19:20; Start 01/08/17 at 22:00 Acetaminophen (Tylenol) 650 mg PRN Q6HRS PRN PO PAIN / TEMP; Start 01/08/17 at 21:45 Multi-Ingredient Ointment (Analgesic [place]) 1 shelia PRN QID PRN TP MUSCLE PAIN; Start 01/08/17 at 21:45 Al Hydroxide/Mg Hydroxide (Mylanta Plus Xs) 15 ml PRN AFTMEALHC PRN PO DYSPEPSIA; Start 01/08/17 at 21:45 Magnesium Hydroxide (Milk Of Magnesia) 2,400 mg PRN QHS PRN PO CONSTIPATION; Start 01/08/17 at 21:45 Olanzapine (Zyprexa Zydis) 2.5 mg PRN Q2HR PRN PO ANXIETY / AGITATION Last administered on 01/17/17 17:52; Start 01/08/17 at 22:45 Metoprolol Tartrate (Lopressor) 50 mg BID PO Last administered on 01/18/17 19: 19; Start 01/09/17 at 09:00 Atorvastatin Calcium (Lipitor) 20 mg QHS PO Last administered on 01/18/17 19:19 ; Start 01/09/17 at 21:00 Quetiapine Fumarate (SEROquel) 12.5 mg QHS PO Last administered on 01/11/17 20 :15; Start 01/09/17 at 21:00; Stop 01/12/17 at 18:13; Status DC Trazodone HCl (Desyrel) 25 mg PRN QHS PRN PO INSOMNIA, January Last administered on 01/09/17 21:09; Start 01/09/17 at 19:30 Quetiapine Fumarate (SEROquel) 25 mg QHS PO Last administered on 01/15/17 19: 01; Start 01/12/17 at 21:00; Stop 01/16/17 at 19:43; Status DC Escitalopram Oxalate (Lexapro) 5 mg DAILY PO Last administered on 01/15/17 07: 46; Start 01/13/17 at 09:00; Stop 01/17/17 at 16:25; Status DC Mirtazapine (Remeron) 7.5 mg QHS PO Last administered on 01/18/17 19:20; Start 01/13/17 at 21:00 Quetiapine Fumarate (SEROquel) 50 mg QHS PO Last administered on 01/16/17 20: 26; Start 01/16/17 at 21:00; Stop 01/17/17 at 19:36; Status DC Escitalopram Oxalate (Lexapro) 10 mg QHS PO ; Start 01/18/17 at 21:00; Stop at 21:00; Status DC Escitalopram Oxalate (Lexapro) 10 mg DAILY PO ; Start 01/18/17 at 09:00; Status Cancel Escitalopram Oxalate (Lexapro) 10 mg DAILY PO Last administered on 01/18/17 08: 54; Start 01/18/17 at 09:00 Risperidone (Risperdal) 0.25 mg HS PO Last administered on 01/18/17 19:20; Start 01/17/17 at 21:00 Active Scripts Active Reported Aricept (Donepezil Hcl) 10 Mg Tablet 10 Mg PO QHS Metoprolol Tartrate 50 Mg Tablet 50 Mg PO BID Diagnosis: Problems: (1) Dementia with behavioral disturbance (2) Confusion (3) Fall (4) Anxiety disorder (5) Dementia in Alzheimer's disease with delusions (6) Dementia in Alzheimer's disease with depression (7) Dementia, vascular, with delusions (8) Dementia, vascular, with depression (9) Impulse control disorder JIMBO MARLEY MD January 18, 2017 20:43
--- NOTE | 2017-01-19 02:48 | PN ---
DATE: 01/17/2017 PSYCHIATRIC PROGRESS NOTE This is late entry of 01/17/2017, covers elements not covered in my initial note. OBJECTIVE: VITAL SIGNS: Temperature 96.9, pulse 80, respirations 18, BP 146/66. SUBJECTIVE: I met with the patient evening of 01/17/2017, discussed with nursing staff. She continues to be psychotic, talks to people and doors, refused her bedtime medications, took them crushed in ice cream. She was somewhat dramatic in her presentation, psychotic. REVIEW OF SYSTEMS: No CV, , pulmonary, eye, ENT system symptoms on review, met with her in her room, reliability poor. MENTAL STATUS EXAMINATION: Oriented to herself. Insight, judgment, recent and remote memory, attention, concentration, fund of knowledge poor, consistent with her diagnosis. IMPRESSION: Major neurocognitive disorder, Alzheimer, vascular with depression, delusion, behavioral disturbance, rest unchanged. PLAN: Change the Seroquel to Risperdal 0.25 mg at bedtime, increase gradually, maintain Aricept, Zyprexa p.r.n., trazodone p.r.n., Lexapro 10 mg a day, Remeron 7.5 at bedtime. MAN Brooks MARLEY MD DR: JEAN/filemon JOB#: [id number] / [id number]
--- NOTE | 2017-01-19 03:00 | NUR ---
Behavior Intervention Response and Plan: BIRP Note: Behavior: Assumed Care of patient, patient located in Patient Room at shift change. Patient exhibited the following behavior Calm, Drowsy, Withdrawn. Brief assessment on rounds of vital signs, medication needs, lab studies, and pain. Treatment plan problems Dementia with BD and Fall Risk. Intervention: Patient assessed and the following interventions initiated safety checks 15 Minute Checks Cognitive Assessment , Medications , Oral Hydration. Response: After interactions and interventions patient responded in the following manner, Calm , Drowsy ,Anxious. Continue to assess behaviors and condition will continue to monitor throughout the shift as needed. 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 Continue to assess patient for changes in above assessment. Monitor for medication needs, pain, and safety concerns. Hourly rounding performed to ensure safe environment.
[2017-01-19 06:30] VITALS: BP 127/70
[2017-01-19] MEDS: ESCITALOPRAM 5 MG/5 ML PO SCH (09:26)
[2017-01-19] MEDS: METOPROLOL TART IMMED RELEASE 50 MG TABLET PO SCH ×2 (09:26→19:54)
--- NOTE | 2017-01-19 13:04 | NUR ---
Behavior Intervention Response and Plan: BIRP Note: Behavior: Assumed Care of patient, patient located in Patient Room at shift change. Patient exhibited the following behavior Compliant, Sleeping, Calm. Brief assessment on rounds of vital signs, medication needs, lab studies, and pain. Treatment plan problems 1 and 2. Intervention: Patient assessed and the following interventions initiated safety checks 15 Minute Checks Head to toe Assessment , Medications , Cognitive Assessment. Response: After interactions and interventions patient responded in the following manner, Withdrawn , Disorganized ,Cooperative. Continue to assess behaviors and condition will continue to monitor throughout the shift as needed. 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 Continue to assess patient for changes in above assessment. Monitor for medication needs, pain, and safety concerns. Hourly rounding performed to ensure safe environment.
[2017-01-19 15:58] VITALS: BP 120/58
--- NOTE | 2017-01-19 16:14 | NUR ---
Was able to get pt to shower. Out sitting in a chair in the sullivan at this time.
--- NOTE | 2017-01-19 17:14 | NUR ---
Pt sitting in dining sullivan eating well. Has been interactive and in the day sullivan most of the afternoon. PRN pain medication was effective for pt. Denies further needs at this time.
[2017-01-19] MEDS: ATORVASTATIN CALCIUM 20 MG TABLET PO SCH (19:53)
[2017-01-19] MEDS: MIRTAZAPINE 7.5 MG TABLET. PO SCH (19:54)
[2017-01-19] MEDS: DONEPEZIL HCL 10 MG TABLET PO SCH (19:54)
[2017-01-19] MEDS: risperiDONE 0.5 MG TABLET. PO SCH (20:01)
--- NOTE | 2017-01-19 21:18 | PDOC ---
Exam Fabian Demential Exam: Fabian Note: Please also refer to the separate dictated note~for this date of service dictated separately.~Patient seen individually. Discussed the patient with Nursing staff reviewed the chart.~Reviewed interim history and current functioning. Reviewed vital signs,~Labs/ Radiology~and current medications noted below. Continue current treatment with the changes noted in the dictated addendum note Assessment: Vital Signs: Vital Signs Date Time Temp Pulse Resp B/P Pulse Ox O2 Delivery O2 Flow Rate FiO2 01/19/17 19:54 75 120/58 01/19/17 15:58 97.7 18 01/19/17 06:30 97 01/15/17 15:41 Room Air I&O Intake and Output 01/19/17 07:00 Intake Total 240 ml Balance 240 ml Intake Oral 240 ml # Voids 2 Current Medications: Meds: Current Medications Donepezil HCl (Aricept) 10 mg QHS PO Last administered on 01/19/17 19:54; Start 01/08/17 at 22:00 Acetaminophen (Tylenol) 650 mg PRN Q6HRS PRN PO PAIN / TEMP; Start 01/08/17 at 21:45 Multi-Ingredient Ointment (Analgesic [place]) 1 shelia PRN QID PRN TP MUSCLE PAIN; Start 01/08/17 at 21:45 Al Hydroxide/Mg Hydroxide (Mylanta Plus Xs) 15 ml PRN AFTMEALHC PRN PO DYSPEPSIA; Start 01/08/17 at 21:45 Magnesium Hydroxide (Milk Of Magnesia) 2,400 mg PRN QHS PRN PO CONSTIPATION; Start 01/08/17 at 21:45 Olanzapine (Zyprexa Zydis) 2.5 mg PRN Q2HR PRN PO ANXIETY / AGITATION Last administered on 01/17/17 17:52; Start 01/08/17 at 22:45 Metoprolol Tartrate (Lopressor) 50 mg BID PO Last administered on 01/19/17 19: 54; Start 01/09/17 at 09:00 Atorvastatin Calcium (Lipitor) 20 mg QHS PO Last administered on 01/19/17 19:53 ; Start 01/09/17 at 21:00 Quetiapine Fumarate (SEROquel) 12.5 mg QHS PO Last administered on 01/11/17 20 :15; Start 01/09/17 at 21:00; Stop 01/12/17 at 18:13; Status DC Trazodone HCl (Desyrel) 25 mg PRN QHS PRN PO INSOMNIA, MAY REPEAT X1 Last administered on 01/09/17 21:09; Start 01/09/17 at 19:30 Quetiapine Fumarate (SEROquel) 25 mg QHS PO Last administered on 01/15/17 19: 01; Start 01/12/17 at 21:00; Stop 01/16/17 at 19:43; Status DC Escitalopram Oxalate (Lexapro) 5 mg DAILY PO Last administered on 01/15/17 07: 46; Start 01/13/17 at 09:00; Stop 01/17/17 at 16:25; Status DC Mirtazapine (Remeron) 7.5 mg QHS PO Last administered on 01/19/17 19:54; Start 01/13/17 at 21:00 Quetiapine Fumarate (SEROquel) 50 mg QHS PO Last administered on 01/16/17 20: 26; Start 01/16/17 at 21:00; Stop 01/17/17 at 19:36; Status DC Escitalopram Oxalate (Lexapro) 10 mg QHS PO ; Start 01/18/17 at 21:00; Stop at 21:00; Status DC Escitalopram Oxalate (Lexapro) 10 mg DAILY PO ; Start 01/18/17 at 09:00; Status Cancel Escitalopram Oxalate (Lexapro) 10 mg DAILY PO Last administered on 01/19/17 09: 26; Start 01/18/17 at 09:00 Risperidone (Risperdal) 0.25 mg HS PO Last administered on 01/18/17 19:20; Start 01/17/17 at 21:00; Stop 01/19/17 at 17:54; Status DC Risperidone (Risperdal) 0.5 mg HS PO Last administered on 01/19/17 20:01; Start 01/19/17 at 21:00 Active Scripts Active Reported Aricept (Donepezil Hcl) 10 Mg Tablet 10 Mg PO QHS Metoprolol Tartrate 50 Mg Tablet 50 Mg PO BID Diagnosis: Problems: (1) Dementia with behavioral disturbance (2) Confusion (3) Fall (4) Anxiety disorder (5) Dementia in Alzheimer's disease with delusions (6) Dementia in Alzheimer's disease with depression (7) Dementia, vascular, with delusions (8) Dementia, vascular, with depression (9) Impulse control disorder JIMBO MARLEY MD January 19, 2017 21:18
--- NOTE | 2017-01-20 02:29 | NUR ---
Behavior Intervention Response and Plan: BIRP Note: Behavior: Assumed Care of patient, patient located in Day Room at shift change. Patient exhibited the following behavior Withdrawn, Hallucinating, Delusions. Brief assessment on rounds of vital signs, medication needs, lab studies, and pain. Treatment plan problems Dementia with BD and Fall Risk. Intervention: Patient assessed and the following interventions initiated safety checks 15 Minute Checks Cognitive Assessment , Medications , Nutrition. Response: After interactions and interventions patient responded in the following manner, Withdrawn , Hallucinating ,Delusions. Continue to assess behaviors and condition will continue to monitor throughout the shift as needed. Plan: Continue to monitor Master Treatment Plan for patient's progress toward short term goals of Decreased Agitation, Decreased Aggression, snf goals to return to previous living setting vs placement. Continue to assess patient for changes in above assessment. Monitor for medication needs, pain, and safety concerns. Hourly rounding performed to ensure safe environment.
[2017-01-20 06:30] VITALS: BP 135/69
[2017-01-20] MEDS: METOPROLOL TART IMMED RELEASE 50 MG TABLET PO SCH ×2 (07:26→21:35)
[2017-01-20] MEDS: ESCITALOPRAM 5 MG/5 ML PO SCH (07:27)
--- NOTE | 2017-01-20 08:13 | PN ---
DATE: 01/18/2017 PSYCHIATRIC PROGRESS NOTE This is a late entry for 01/18/2017, covers elements not covered in my initial note. SUBJECTIVE: Overall, per nursing report, the patient refused to go to the dining room, remains paranoid, suspicious, drinks her Boost, talking to someone when no one is around and having a two-way conversation in this context. Nursing staff will initiate a system where she is given at token for meals and told that this was paid for, she needed to go to the dining room for her meals with the token and hopefully this will help motivate her, so that she is not losing her money, as she perceives that having paid for the meal. REVIEW OF SYSTEMS: No CV, , pulmonary, eye, ENT system symptoms on review. MENTAL STATUS EXAM: Oriented to herself. Insight, judgment, recent and remote memory, attention, concentration, fund of knowledge poor, consistent with her diagnosis as mentioned in my initial note. PLAN: Continue psychotropics mentioned in my initial note. Make further adjustments as clinically indicated. May need to increase Risperdal, but we will see how she does for another day or two. Given her age, I would like to keep the dosage minimal. JIMBO MARLEY MD DR: JEAN/filemon JOB#: [id number] / [id number]
--- NOTE | 2017-01-20 10:34 | NUR ---
Behavior Intervention Response and Plan: BIRP Note: Behavior: Assumed Care of patient, patient located in Dining Room at shift change. Patient exhibited the following behavior Calm, Disorganized, Interactive. Brief assessment on rounds of vital signs, medication needs, lab studies, and pain. Treatment plan problems 1 and 2. Intervention: Patient assessed and the following interventions initiated safety checks 15 Minute Checks Cognitive Assessment , Head to toe Assessment , Nutrition. Response: After interactions and interventions patient responded in the following manner, Resistive , Disorganized ,Delusions. Continue to assess behaviors and condition will continue to monitor throughout the shift as needed. 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 Continue to assess patient for changes in above assessment. Monitor for medication needs, pain, and safety concerns. Hourly rounding performed to ensure safe environment.
--- NOTE | 2017-01-20 13:55 | NUR ---
Pt has been delusional continuing to talk to others not seen. Will even carry on the conversation, asking questions then responding as if she is the other person. Was able to get her to come into the dining sullivan but refused to eat lunch. Currently sitting in the day room.
--- NOTE | 2017-01-20 14:56 | NUR ---
[facility] faxed admit referral to [place] and [facility], per family request.
[2017-01-20 15:46] VITALS: BP 124/70
[2017-01-20] MEDS ORDERED: traZODone 50 MG TABLET. PO PRN (19:15)
--- NOTE | 2017-01-20 21:05 | PDOC ---
Exam Fabian Demential Exam: Fabian Note: Please also refer to the separate dictated note~for this date of service dictated separately.~Patient seen individually. Discussed the patient with Nursing staff reviewed the chart.~Reviewed interim history and current functioning. Reviewed vital signs,~Labs/ Radiology~and current medications noted below. Continue current treatment with the changes noted in the dictated addendum note Assessment: Vital Signs: Vital Signs Date Time Temp Pulse Resp B/P Pulse Ox O2 Delivery O2 Flow Rate FiO2 01/20/17 15:46 97.4 67 17 124/70 98 01/15/17 15:41 Room Air I&O Intake and Output 01/20/17 07:00 Intake Total 800 ml Balance 800 ml Intake Oral 800 ml Current Medications: Meds: Current Medications Donepezil HCl (Aricept) 10 mg QHS PO Last administered on 01/19/17 19:54; Start 01/08/17 at 22:00 Acetaminophen (Tylenol) 650 mg PRN Q6HRS PRN PO PAIN / TEMP; Start 01/08/17 at 21:45 Multi-Ingredient Ointment (Analgesic [place]) 1 shelia PRN QID PRN TP MUSCLE PAIN; Start 01/08/17 at 21:45 Al Hydroxide/Mg Hydroxide (Mylanta Plus Xs) 15 ml PRN AFTMEALHC PRN PO DYSPEPSIA; Start 01/08/17 at 21:45 Magnesium Hydroxide (Milk Of Magnesia) 2,400 mg PRN QHS PRN PO CONSTIPATION; Start 01/08/17 at 21:45 Olanzapine (Zyprexa Zydis) 2.5 mg PRN Q2HR PRN PO ANXIETY / AGITATION Last administered on 01/17/17 17:52; Start 01/08/17 at 22:45 Metoprolol Tartrate (Lopressor) 50 mg BID PO Last administered on 01/20/17 07: 26; Start 01/09/17 at 09:00 Atorvastatin Calcium (Lipitor) 20 mg QHS PO Last administered on 01/19/17 19:53 ; Start 01/09/17 at 21:00 Quetiapine Fumarate (SEROquel) 12.5 mg QHS PO Last administered on 01/11/17 20 :15; Start 01/09/17 at 21:00; Stop 01/12/17 at 18:13; Status DC Trazodone HCl (Desyrel) 25 mg PRN QHS PRN PO INSOMNIA, MAY REPEAT X1 Last administered on 01/09/17 21:09; Start 01/09/17 at 19:30; Stop 01/20/17 at 19:06 ; Status DC Quetiapine Fumarate (SEROquel) 25 mg QHS PO Last administered on 01/15/17 19: 01; Start 01/12/17 at 21:00; Stop 01/16/17 at 19:43; Status DC Escitalopram Oxalate (Lexapro) 5 mg DAILY PO Last administered on 01/15/17 07: 46; Start 01/13/17 at 09:00; Stop 01/17/17 at 16:25; Status DC Mirtazapine (Remeron) 7.5 mg QHS PO Last administered on 01/19/17 19:54; Start 01/13/17 at 21:00; Stop 01/20/17 at 19:06; Status DC Quetiapine Fumarate (SEROquel) 50 mg QHS PO Last administered on 01/16/17 20: 26; Start 01/16/17 at 21:00; Stop 01/17/17 at 19:36; Status DC Escitalopram Oxalate (Lexapro) 10 mg QHS PO ; Start 01/18/17 at 21:00; Stop at 21:00; Status DC Escitalopram Oxalate (Lexapro) 10 mg DAILY PO ; Start 01/18/17 at 09:00; Status Cancel Escitalopram Oxalate (Lexapro) 10 mg DAILY PO Last administered on 01/20/17 07: 27; Start 01/18/17 at 09:00 Risperidone (Risperdal) 0.25 mg HS PO Last administered on 01/18/17 19:20; Start 01/17/17 at 21:00; Stop 01/19/17 at 17:54; Status DC Risperidone (Risperdal) 0.5 mg HS PO Last administered on 01/19/17 20:01; Start 01/19/17 at 21:00 Mirtazapine (Remeron) 15 mg QHS PO ; Start 01/20/17 at 21:00 Trazodone HCl (Desyrel) 50 mg PRN QHS PRN PO INSOMNIA, MAY REPEAT X1; Start 01/20/17 at 19:15 Active Scripts Active Reported Aricept (Donepezil Hcl) 10 Mg Tablet 10 Mg PO QHS Metoprolol Tartrate 50 Mg Tablet 50 Mg PO BID Diagnosis: Problems: (1) Dementia with behavioral disturbance (2) Confusion (3) Fall (4) Anxiety disorder (5) Dementia in Alzheimer's disease with delusions (6) Dementia in Alzheimer's disease with depression (7) Dementia, vascular, with delusions (8) Dementia, vascular, with depression (9) Impulse control disorder JIMBO MARLEY MD January 20, 2017 21:05
[2017-01-20] MEDS: ATORVASTATIN CALCIUM 20 MG TABLET PO SCH (21:34)
[2017-01-20] MEDS: MIRTAZAPINE 15 MG TABLET PO SCH (21:34)
[2017-01-20] MEDS: DONEPEZIL HCL 10 MG TABLET PO SCH (21:35)
[2017-01-20] MEDS: risperiDONE 0.5 MG TABLET. PO SCH (21:36)
--- NOTE | 2017-01-21 00:53 | NUR ---
Behavior Intervention Response and Plan: BIRP Note: Behavior: Assumed Care of patient, patient located in Patient Room at shift change. Patient exhibited the following behavior Calm, Delusions, Disorganized. Brief assessment on rounds of vital signs, medication needs, lab studies, and pain. Treatment plan problems Dementia and Fall Risk. Intervention: Patient assessed and the following interventions initiated safety checks 15 Minute Checks Cognitive Assessment , Head to toe Assessment , Medications. Response: After interactions and interventions patient responded in the following manner, Cooperative , Calm ,Compliant. Continue to assess behaviors and condition will continue to monitor throughout the shift as needed. 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 Continue to assess patient for changes in above assessment. Monitor for medication needs, pain, and safety concerns. Hourly rounding performed to ensure safe environment.
--- NOTE | 2017-01-21 02:46 | PN ---
DATE: 01/19/2017 PSYCHIATRIC PROGRESS NOTE This is a late entry for 01/19/2017, covers elements not covered in my initial note. SUBJECTIVE: The patient slept 7-3/4 hours previous night, remains confused. Spending much time in her room where I met with her the evening of 01/19/2017. She is convinced her father is in the room with her and that is why she is not going to the dining room for supper. She has been talking to the wall and believes the father is sitting at the wall. She did have a shower in the evening. Previous evening she felt her mother was in the room with her, ate 100% breakfast, 100% of lunch, refusing supper. REVIEW OF SYSTEMS: No CV, , pulmonary, eye, ENT system symptoms on review. Reliability poor. MENTAL STATUS EXAM: Oriented to herself. Insight, judgment, recent and remote memory, attention, concentration, fund of knowledge poor, consistent with her diagnosis mentioned in my initial note. PLAN: Increase Risperdal from 0.25 mg at bedtime to 0.5 mg at bedtime. Maintain the rest of the psychotropics mentioned in my initial note. MAN Brooks MARLEY MD DR: JEAN/filemon JOB#: [id number] / [id number]
[2017-01-21] MEDS: METOPROLOL TART IMMED RELEASE 50 MG TABLET PO SCH ×2 (08:06→19:55)
[2017-01-21] MEDS: ESCITALOPRAM 5 MG/5 ML PO SCH (08:07)
[2017-01-21 09:00] VITALS: BP 129/69
--- NOTE | 2017-01-21 10:01 | NUR ---
Behavior Intervention Response and Plan: BIRP Note: Behavior: Assumed Care of patient, patient located in Day Room at shift change. Patient exhibited the following behavior Disorganized, Social, Hallucinating. Brief assessment on rounds of vital signs, medication needs, lab studies, and pain. Treatment plan problems . Intervention: Patient assessed and the following interventions initiated safety checks 15 Minute Checks Cognitive Assessment , Head to toe Assessment , Medications. Response: After interactions and interventions patient responded in the following manner, Disorganized , Hallucinating ,Compliant. Continue to assess behaviors and condition will continue to monitor throughout the shift as needed. 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 Continue to assess patient for changes in above assessment. Monitor for medication needs, pain, and safety concerns. Hourly rounding performed to ensure safe environment.
[2017-01-21 15:56] VITALS: BP 120/73
[2017-01-21] MEDS: DONEPEZIL HCL 10 MG TABLET PO SCH (19:54)
[2017-01-21] MEDS: MIRTAZAPINE 15 MG TABLET PO SCH (19:54)
[2017-01-21] MEDS: ATORVASTATIN CALCIUM 20 MG TABLET PO SCH (19:55)
[2017-01-21] MEDS: risperiDONE 0.5 MG TABLET. PO SCH (19:55)
--- NOTE | 2017-01-21 20:25 | PDOC ---
Exam Fabian Demential Exam: Fabian Note: Please also refer to the separate dictated note~for this date of service dictated separately.~Patient seen individually. Discussed the patient with Nursing staff reviewed the chart.~Reviewed interim history and current functioning. Reviewed vital signs,~Labs/ Radiology~and current medications noted below. Continue current treatment with the changes noted in the dictated addendum note Assessment: Vital Signs: Vital Signs Date Time Temp Pulse Resp B/P (MAP) Pulse Ox O2 Delivery O2 Flow Rate FiO2 01/21/17 19:55 69 120/73 01/21/17 15:56 97.8 18 96 01/15/17 15:41 Room Air I&O Intake and Output 01/21/17 07:00 Intake Total 480 ml Balance 480 ml Intake Oral 480 ml Current Medications: Meds: Current Medications Donepezil HCl (Aricept) 10 mg QHS PO Last administered on 01/21/17 19:54; Start 01/08/17 at 22:00 Acetaminophen (Tylenol) 650 mg PRN Q6HRS PRN PO PAIN / TEMP; Start 01/08/17 at 21:45 Multi-Ingredient Ointment (Analgesic [place]) 1 shelia PRN QID PRN TP MUSCLE PAIN; Start 01/08/17 at 21:45 Al Hydroxide/Mg Hydroxide (Mylanta Plus Xs) 15 ml PRN AFTMEALHC PRN PO DYSPEPSIA; Start 01/08/17 at 21:45 Magnesium Hydroxide (Milk Of Magnesia) 2,400 mg PRN QHS PRN PO CONSTIPATION; Start 01/08/17 at 21:45 Olanzapine (Zyprexa Zydis) 2.5 mg PRN Q2HR PRN PO ANXIETY / AGITATION Last administered on 01/17/17 17:52; Start 01/08/17 at 22:45 Metoprolol Tartrate (Lopressor) 50 mg BID PO Last administered on 01/21/17 19: 55; Start 01/09/17 at 09:00 Atorvastatin Calcium (Lipitor) 20 mg QHS PO Last administered on 01/21/17 19:55 ; Start 01/09/17 at 21:00 Quetiapine Fumarate (SEROquel) 12.5 mg QHS PO Last administered on 01/11/17 20 :15; Start 01/09/17 at 21:00; Stop 01/12/17 at 18:13; Status DC Trazodone HCl (Desyrel) 25 mg PRN QHS PRN PO INSOMNIA, MAY REPEAT X1 Last administered on 01/09/17 21:09; Start 01/09/17 at 19:30; Stop 01/20/17 at 19:06 ; Status DC Quetiapine Fumarate (SEROquel) 25 mg QHS PO Last administered on 01/15/17 19: 01; Start 01/12/17 at 21:00; Stop 01/16/17 at 19:43; Status DC Escitalopram Oxalate (Lexapro) 5 mg DAILY PO Last administered on 01/15/17 07: 46; Start 01/13/17 at 09:00; Stop 01/17/17 at 16:25; Status DC Mirtazapine (Remeron) 7.5 mg QHS PO Last administered on 01/19/17 19:54; Start 01/13/17 at 21:00; Stop 01/20/17 at 19:06; Status DC Quetiapine Fumarate (SEROquel) 50 mg QHS PO Last administered on 01/16/17 20: 26; Start 01/16/17 at 21:00; Stop 01/17/17 at 19:36; Status DC Escitalopram Oxalate (Lexapro) 10 mg QHS PO ; Start 01/18/17 at 21:00; Stop at 21:00; Status DC Escitalopram Oxalate (Lexapro) 10 mg DAILY PO ; Start 01/18/17 at 09:00; Status Cancel Escitalopram Oxalate (Lexapro) 10 mg DAILY PO Last administered on 01/21/17 08: 07; Start 01/18/17 at 09:00 Risperidone (Risperdal) 0.25 mg HS PO Last administered on 01/18/17 19:20; Start 01/17/17 at 21:00; Stop 01/19/17 at 17:54; Status DC Risperidone (Risperdal) 0.5 mg HS PO Last administered on 01/21/17 19:55; Start 01/19/17 at 21:00 Mirtazapine (Remeron) 15 mg QHS PO Last administered on 01/21/17 19:54; Start 5/3/17 at 21:00 Trazodone HCl (Desyrel) 50 mg PRN QHS PRN PO INSOMNIA, JANUARY REPEAT X1; Start 01/20/17 at 19:15 Active Scripts Active Reported Aricept (Donepezil Hcl) 10 Mg Tablet 10 Mg PO QHS Metoprolol Tartrate 50 Mg Tablet 50 Mg PO BID Diagnosis: Problems: (1) Dementia with behavioral disturbance (2) Confusion (3) Fall (4) Anxiety disorder (5) Dementia in Alzheimer's disease with delusions (6) Dementia in Alzheimer's disease with depression (7) Dementia, vascular, with delusions (8) Dementia, vascular, with depression (9) Impulse control disorder JIMBO MARLEY MD January 21, 2017 20:25
--- NOTE | 2017-01-22 01:20 | NUR ---
Behavior Intervention Response and Plan: BIRP Note: Behavior: Assumed Care of patient, patient located in Patient Room at shift change. Patient exhibited the following behavior Calm, Disorganized, Withdrawn. Brief assessment on rounds of vital signs, medication needs, lab studies, and pain. Treatment plan problems 1 and 2. Intervention: Patient assessed and the following interventions initiated safety checks 15 Minute Checks Cognitive Assessment , Head to toe Assessment , Medications. Response: After interactions and interventions patient responded in the following manner, Calm , Compliant ,Withdrawn. Continue to assess behaviors and condition will continue to monitor throughout the shift as needed. 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 Continue to assess patient for changes in above assessment. Monitor for medication needs, pain, and safety concerns. Hourly rounding performed to ensure safe environment.
[2017-01-22 06:37] VITALS: BP 126/71
[2017-01-22] MEDS: METOPROLOL TART IMMED RELEASE 50 MG TABLET PO SCH ×2 (08:23→19:56)
[2017-01-22] MEDS: ESCITALOPRAM 5 MG/5 ML PO SCH (08:23)
[2017-01-22 09:30] LABS: BASO # 0.1 x10^3/uL (0.0-0.2); BASO % 1 % (0-3); EOS # 0.3 x10^3/uL (0.0-0.7); EOS % 3 % (0-3); HEMATOCRIT 41.7 % (36.0-47.0); HEMOGLOBIN 13.9 g/dL (12.0-15.5); LYMPH # 1.5 x10^3/uL (1.0-4.8); LYMPH % 20 % (24-48); MEAN CORPUSCULAR HEMOGLOBIN 33 pg (25-35); MEAN CORPUSCULAR HGB CONC 33 g/dL (31-37); MEAN CORPUSCULAR VOLUME 99 fL (79-100); MONO # 0.4 x10^3/uL (0.0-1.1); MONO % 5 % (0-9); NEUT # 5.7 x10^3uL (1.8-7.7); NEUT % 72 % (31-73); PLATELET COUNT 181 x10^3/uL (140-400); RED CELL DISTRIBUTION WIDTH 13.7 % (11.5-14.5); WHITE BLOOD COUNT 7.9 x10^3/uL (4.0-11.0)
[2017-01-22 09:41] LABS: ALBUMIN 3.1 g/dL (3.4-5.0); ALBUMIN/GLOBULIN RATIO 0.8 (1.0-1.7); CALCIUM 9.5 mg/dL (8.5-10.1); CREATININE 1.1 mg/dL (0.6-1.0); GFR 48.2; POTASSIUM 4.2 mmol/L (3.5-5.1); TOTAL BILIRUBIN 0.5 mg/dL (0.2-1.0); TOTAL PROTEIN 7.1 g/dL (6.4-8.2)
--- NOTE | 2017-01-22 10:29 | NUR ---
Behavior Intervention Response and Plan: BIRP Note: Behavior: Assumed Care of patient, patient located in Dining Room at shift change. Patient exhibited the following behavior Wandering, Disorganized, Hallucinating. Brief assessment on rounds of vital signs, medication needs, lab studies, and pain. Treatment plan problems . Intervention: Patient assessed and the following interventions initiated safety checks 15 Minute Checks Cognitive Assessment , Head to toe Assessment , Medications. Response: After interactions and interventions patient responded in the following manner, Disorganized , Calm ,Cooperative. Continue to assess behaviors and condition will continue to monitor throughout the shift as needed. Plan: Continue to monitor Master Treatment Plan for patient's progress toward short term goals of Improved Mood, No harm To self/ others, ch[facility] goals to return to previous living setting vs placement. Continue to assess patient for changes in above assessment. Monitor for medication needs, pain, and safety concerns. Hourly rounding performed to ensure safe environment.
[2017-01-22] MEDS ORDERED: CYANOCOBALAMIN (VITAMIN B-12) 1,000 MCG/ML VIAL IM SCH (14:00)
[2017-01-22 15:51] VITALS: BP 124/59
[2017-01-22] MEDS: CHOLECALCIFEROL (VITAMIN D3) 1,000 UNIT TABLET PO SCH (16:49)
--- NOTE | 2017-01-22 19:40 | NUR ---
Behavior Intervention Response and Plan: BIRP Note: Behavior: Assumed Care of patient, patient located in Patient Room at shift change. Patient exhibited the following behavior Calm, Cooperative, Withdrawn. Brief assessment on rounds of vital signs, medication needs, lab studies, and pain. Treatment plan problems 1-3. Intervention: Patient assessed and the following interventions initiated safety checks 15 Minute Checks Head to toe Assessment , Medications , ADL's. Response: After interactions and interventions patient responded in the following manner, Calm , Cooperative ,Compliant. Continue to assess behaviors and condition will continue to monitor throughout the shift as needed. Plan: Continue to monitor Master Treatment Plan for patient's progress toward short term goals of Improved Mood, Decreased Agitation, shelter goals to return to previous living setting vs placement. Continue to assess patient for changes in above assessment. Monitor for medication needs, pain, and safety concerns. Hourly rounding performed to ensure safe environment.
[2017-01-22] MEDS: risperiDONE 0.5 MG TABLET. PO SCH (19:56)
[2017-01-22] MEDS: DONEPEZIL HCL 10 MG TABLET PO SCH (19:56)
[2017-01-22] MEDS: MIRTAZAPINE 15 MG TABLET PO SCH (19:56)
[2017-01-22] MEDS: ATORVASTATIN CALCIUM 20 MG TABLET PO SCH (19:56)
--- NOTE | 2017-01-22 20:16 | PDOC ---
Exam Fabian Demential Exam: Fabian Note: Please also refer to the separate dictated note~for this date of service dictated separately.~Patient seen individually. Discussed the patient with Nursing staff reviewed the chart.~Reviewed interim history and current functioning. Reviewed vital signs,~Labs/ Radiology~and current medications noted below. Continue current treatment with the changes noted in the dictated addendum note Assessment: Vital Signs: Vital Signs Date Time Temp Pulse Resp B/P (MAP) Pulse Ox O2 Delivery O2 Flow Rate FiO2 01/22/17 19:56 72 124/59 01/22/17 15:51 97.8 16 95 I&O Intake and Output 01/22/17 07:00 Intake Total 740 ml Balance 740 ml Intake Oral 740 ml # Voids 1 Labs: Laboratory Tests Test 01/22/17 09:12 White Blood Count 7.9 x10^3/uL (4.0-11.0) Red Blood Count 4.20 x10^6/uL (3.50-5.40) Hemoglobin 13.9 g/dL (12.0-15.5) Hematocrit 41.7 % (36.0-47.0) Mean Corpuscular Volume 99 fL (79-100) Mean Corpuscular Hemoglobin 33 pg (25-35) Mean Corpuscular Hemoglobin Concent 33 g/dL (31-37) Red Cell Distribution Width 13.7 % (11.5-14.5) Platelet Count 181 x10^3/uL (140-400) Neutrophils (%) (Auto) 72 % (31-73) Lymphocytes (%) (Auto) 20 % (24-48) L Monocytes (%) (Auto) 5 % (0-9) Eosinophils (%) (Auto) 3 % (0-3) Basophils (%) (Auto) 1 % (0-3) Neutrophils # (Auto) 5.7 x10^3uL (1.8-7.7) Lymphocytes # (Auto) 1.5 x10^3/uL (1.0-4.8) Monocytes # (Auto) 0.4 x10^3/uL (0.0-1.1) Eosinophils # (Auto) 0.3 x10^3/uL (0.0-0.7) Basophils # (Auto) 0.1 x10^3/uL (0.0-0.2) Sodium Level 142 mmol/L (136-145) Potassium Level 4.2 mmol/L (3.5-5.1) Chloride Level 104 mmol/L (98-107) Carbon Dioxide Level 32 mmol/L (21-32) Anion Gap 6 (6-14) Blood Urea Nitrogen 17 mg/dL (7-20) Creatinine 1.1 mg/dL (0.6-1.0) H Estimated GFR (Cockcroft-Gault) 48.2 BUN/Creatinine Ratio 15 (6-20) Glucose Level 235 mg/dL (70-99) H Calcium Level 9.5 mg/dL (8.5-10.1) Total Bilirubin 0.5 mg/dL (0.2-1.0) Aspartate Amino Transferase (AST) 24 U/L (15-37) Alanine Aminotransferase (ALT) 19 U/L (14-59) Alkaline Phosphatase 93 U/L (46-116) Total Protein 7.1 g/dL (6.4-8.2) Albumin 3.1 g/dL (3.4-5.0) L Albumin/Globulin Ratio 0.8 (1.0-1.7) L Current Medications: Meds: Current Medications Donepezil HCl (Aricept) 10 mg QHS PO Last administered on 01/22/17 19:56; Start 01/08/17 at 22:00 Acetaminophen (Tylenol) 650 mg PRN Q6HRS PRN PO PAIN / TEMP; Start 01/08/17 at 21:45 Multi-Ingredient Ointment (Analgesic [place]) 1 shelia PRN QID PRN TP MUSCLE PAIN; Start 01/08/17 at 21:45 Al Hydroxide/Mg Hydroxide (Mylanta Plus Xs) 15 ml PRN AFTMEALHC PRN PO DYSPEPSIA; Start 01/08/17 at 21:45 Magnesium Hydroxide (Milk Of Magnesia) 2,400 mg PRN QHS PRN PO CONSTIPATION; Start 01/08/17 at 21:45 Olanzapine (Zyprexa Zydis) 2.5 mg PRN Q2HR PRN PO ANXIETY / AGITATION Last administered on 01/17/17 17:52; Start 01/08/17 at 22:45 Metoprolol Tartrate (Lopressor) 50 mg BID PO Last administered on 01/22/17 19: 56; Start 01/09/17 at 09:00 Atorvastatin Calcium (Lipitor) 20 mg QHS PO Last administered on 01/22/17 19:56 ; Start 01/09/17 at 21:00 Quetiapine Fumarate (SEROquel) 12.5 mg QHS PO Last administered on 01/11/17 20 :15; Start 01/09/17 at 21:00; Stop 01/12/17 at 18:13; Status DC Trazodone HCl (Desyrel) 25 mg PRN QHS PRN PO INSOMNIA, MAY REPEAT X1 Last administered on 01/09/17 21:09; Start 01/09/17 at 19:30; Stop 01/20/17 at 19:06 ; Status DC Quetiapine Fumarate (SEROquel) 25 mg QHS PO Last administered on 01/15/17 19: 01; Start 01/12/17 at 21:00; Stop 01/16/17 at 19:43; Status DC Escitalopram Oxalate (Lexapro) 5 mg DAILY PO Last administered on 01/15/17 07: 46; Start 01/13/17 at 09:00; Stop 01/17/17 at 16:25; Status DC Mirtazapine (Remeron) 7.5 mg QHS PO Last administered on 01/19/17 19:54; Start 01/13/17 at 21:00; Stop 01/20/17 at 19:06; Status DC Quetiapine Fumarate (SEROquel) 50 mg QHS PO Last administered on 01/16/17 20: 26; Start 01/16/17 at 21:00; Stop 01/17/17 at 19:36; Status DC Escitalopram Oxalate (Lexapro) 10 mg QHS PO ; Start 01/18/17 at 21:00; Stop at 21:00; Status DC Escitalopram Oxalate (Lexapro) 10 mg DAILY PO ; Start 01/18/17 at 09:00; Status Cancel Escitalopram Oxalate (Lexapro) 10 mg DAILY PO Last administered on 01/22/17 08: 23; Start 01/18/17 at 09:00 Risperidone (Risperdal) 0.25 mg HS PO Last administered on 01/18/17 19:20; Start 01/17/17 at 21:00; Stop 01/19/17 at 17:54; Status DC Risperidone (Risperdal) 0.5 mg HS PO Last administered on 01/22/17 19:56; Start 01/19/17 at 21:00 Mirtazapine (Remeron) 15 mg QHS PO Last administered on 01/22/17 19:56; Start 01/20/17 at 21:00 Trazodone HCl (Desyrel) 50 mg PRN QHS PRN PO INSOMNIA, JANUARY REPEAT X1; Start 01/20/17 at 19:15 Vitamin D (Vitamin D3) 2,000 unit BIDACLD PO Last administered on 01/22/17 16: 49; Start 01/22/17 at 16:30 Cyanocobalamin (Vitamin B-12) 1,000 mcg [id number] IM Last administered on 14:35; Start 01/22/17 at 14:00 Active Scripts Active Reported Aricept (Donepezil Hcl) 10 Mg Tablet 10 Mg PO QHS Metoprolol Tartrate 50 Mg Tablet 50 Mg PO BID Diagnosis: Problems: (1) Confusion (2) Fall (3) Dementia with behavioral disturbance (4) Anxiety disorder (5) Dementia in Alzheimer's disease with delusions (6) Dementia in Alzheimer's disease with depression (7) Dementia, vascular, with delusions (8) Dementia, vascular, with depression (9) Impulse control disorder JIMBO MARLEY MD January 22, 2017 20:16
--- NOTE | 2017-01-23 03:09 | PN ---
DATE: 01/20/2017 PSYCHIATRIC PROGRESS NOTE This is a late entry for 01/20/2017, covers elements not covered in my initial note. SUBJECTIVE: The patient remains confused, withdrawn, delusional, hallucinating, having conversation with her family members when no one is there in the room with her, takes her medications in ice cream. REVIEW OF SYSTEMS: No CV, , eye, ENT or pulmonary system symptoms on review. Reliability poor. MENTAL STATUS EXAM: Oriented to herself. Insight, judgment, recent and remote memory, attention, concentration, fund of knowledge poor, consistent with her diagnosis mentioned in my initial note. PLAN: Increase trazodone to 50 mg at bedtime, may repeat x 1; Remeron to 15 mg at bedtime. Continue Aricept, Zyprexa p.r.n., Lexapro 10 mg a day, Risperdal 0.5 mg at bedtime. Adjust as indicated clinically. JIMBO MARLEY MD DR: JEAN/filemon JOB#: [id number] / [id number]
--- NOTE | 2017-01-23 03:53 | PN ---
DATE: 01/21/2017 This is a late entry, covers the elements not covered in my initial note. SUBJECTIVE: The patient was staffed at a treatment team meeting with the entire team and seen individually at suppertime. REVIEW OF SYSTEMS: No CV, , eye, ENT system symptoms on review. Reliability poor. She remains confused, less psychotic. MENTAL STATUS EXAM: Oriented to herself. Insight, judgment, recent and remote memory, attention, concentration, fund of knowledge poor, consistent with her diagnosis as mentioned in my initial note. PLAN: Continue current psychotropics as mentioned in my initial note. Adjust further as clinically indicated. MAN Brooks MARLEY MD DR: JEAN/filemon JOB#: [id number] / [id number]
[2017-01-23 06:41] VITALS: BP 120/75
[2017-01-23] MEDS: ESCITALOPRAM 5 MG/5 ML PO SCH (08:01)
[2017-01-23] MEDS: CHOLECALCIFEROL (VITAMIN D3) 1,000 UNIT TABLET PO SCH ×2 (08:02→15:29)
[2017-01-23] MEDS: METOPROLOL TART IMMED RELEASE 50 MG TABLET PO SCH ×2 (08:02→20:02)
[2017-01-23 16:11] VITALS: BP 142/80
--- NOTE | 2017-01-23 19:10 | PDOC ---
Exam Fabian Demential Exam: Fabian Note: Please also refer to the separate dictated note~for this date of service dictated separately.~Patient seen individually. Discussed the patient with Nursing staff reviewed the chart.~Reviewed interim history and current functioning. Reviewed vital signs,~Labs/ Radiology~and current medications noted below. Continue current treatment with the changes noted in the dictated addendum note Assessment: Vital Signs: Vital Signs Date Time Temp Pulse Resp B/P (MAP) Pulse Ox O2 Delivery O2 Flow Rate FiO2 01/23/17 16:11 97.6 72 16 142/80 (100) 96 I&O Intake and Output 01/23/17 07:00 Intake Total 1560 ml Balance 1560 ml Intake Oral 1560 ml # Voids 2 Current Medications: Meds: Current Medications Donepezil HCl (Aricept) 10 mg QHS PO Last administered on 01/22/17 19:56; Start 01/08/17 at 22:00 Acetaminophen (Tylenol) 650 mg PRN Q6HRS PRN PO PAIN / TEMP; Start 01/08/17 at 21:45 Multi-Ingredient Ointment (Analgesic [place]) 1 shelia PRN QID PRN TP MUSCLE PAIN; Start 01/08/17 at 21:45 Al Hydroxide/Mg Hydroxide (Mylanta Plus Xs) 15 ml PRN AFTMEALHC PRN PO DYSPEPSIA; Start 01/08/17 at 21:45 Magnesium Hydroxide (Milk Of Magnesia) 2,400 mg PRN QHS PRN PO CONSTIPATION; Start 01/08/17 at 21:45 Olanzapine (Zyprexa Zydis) 2.5 mg PRN Q2HR PRN PO ANXIETY / AGITATION Last administered on 01/23/17 15:28; Start 01/08/17 at 22:45 Metoprolol Tartrate (Lopressor) 50 mg BID PO Last administered on 01/23/17 08: 02; Start 01/09/17 at 09:00 Atorvastatin Calcium (Lipitor) 20 mg QHS PO Last administered on 01/22/17 19:56 ; Start 01/09/17 at 21:00 Quetiapine Fumarate (SEROquel) 12.5 mg QHS PO Last administered on 01/11/17 20 :15; Start 01/09/17 at 21:00; Stop 01/12/17 at 18:13; Status DC Trazodone HCl (Desyrel) 25 mg PRN QHS PRN PO INSOMNIA, MAY REPEAT X1 Last administered on 01/09/17 21:09; Start 01/09/17 at 19:30; Stop 01/20/17 at 19:06 ; Status DC Quetiapine Fumarate (SEROquel) 25 mg QHS PO Last administered on 01/15/17 19: 01; Start 01/12/17 at 21:00; Stop 01/16/17 at 19:43; Status DC Escitalopram Oxalate (Lexapro) 5 mg DAILY PO Last administered on 01/15/17 07: 46; Start 01/13/17 at 09:00; Stop 01/17/17 at 16:25; Status DC Mirtazapine (Remeron) 7.5 mg QHS PO Last administered on 01/19/17 19:54; Start 01/13/17 at 21:00; Stop 01/20/17 at 19:06; Status DC Quetiapine Fumarate (SEROquel) 50 mg QHS PO Last administered on 01/16/17 20: 26; Start 01/16/17 at 21:00; Stop 01/17/17 at 19:36; Status DC Escitalopram Oxalate (Lexapro) 10 mg QHS PO ; Start 01/18/17 at 21:00; Stop at 21:00; Status DC Escitalopram Oxalate (Lexapro) 10 mg DAILY PO ; Start 01/18/17 at 09:00; Status Cancel Escitalopram Oxalate (Lexapro) 10 mg DAILY PO Last administered on 01/23/17 08: 01; Start 01/18/17 at 09:00 Risperidone (Risperdal) 0.25 mg HS PO Last administered on 01/18/17 19:20; Start 01/17/17 at 21:00; Stop 01/19/17 at 17:54; Status DC Risperidone (Risperdal) 0.5 mg HS PO Last administered on 01/22/17 19:56; Start 01/19/17 at 21:00 Mirtazapine (Remeron) 15 mg QHS PO Last administered on 01/22/17 19:56; Start 01/20/17 at 21:00 Trazodone HCl (Desyrel) 50 mg PRN QHS PRN PO INSOMNIA, JANUARY REPEAT X1; Start 01/20/17 at 19:15 Vitamin D (Vitamin D3) 2,000 unit BIDACLD PO Last administered on 01/23/17 15: 29; Start 01/22/17 at 16:30 Cyanocobalamin (Vitamin B-12) 1,000 mcg [id number] IM Last administered on 14:35; Start 01/22/17 at 14:00 Active Scripts Active Reported Aricept (Donepezil Hcl) 10 Mg Tablet 10 Mg PO QHS Metoprolol Tartrate 50 Mg Tablet 50 Mg PO BID Diagnosis: Problems: (1) Dementia with behavioral disturbance (2) Anxiety disorder (3) Dementia in Alzheimer's disease with delusions (4) Dementia in Alzheimer's disease with depression (5) Dementia, vascular, with delusions (6) Dementia, vascular, with depression (7) Impulse control disorder JIMBO MARLEY MD January 23, 2017 19:10
[2017-01-23] MEDS: DONEPEZIL HCL 10 MG TABLET PO SCH (20:01)
[2017-01-23] MEDS: ATORVASTATIN CALCIUM 20 MG TABLET PO SCH (20:01)
[2017-01-23] MEDS: MIRTAZAPINE 15 MG TABLET PO SCH (20:02)
[2017-01-23] MEDS: risperiDONE 0.5 MG TABLET. PO SCH (20:03)
--- NOTE | 2017-01-23 21:00 | NUR ---
Behavior Intervention Response and Plan: BIRP Note: Behavior: Assumed Care of patient, patient located in Day Room at shift change. Patient exhibited the following behavior Calm, Interactive, Delusions. Brief assessment on rounds of vital signs, medication needs, lab studies, and pain. Treatment plan problems . Intervention: Patient assessed and the following interventions initiated safety checks 15 Minute Checks Cognitive Assessment , Head to toe Assessment , Medications. Response: After interactions and interventions patient responded in the following manner, Able to Focus on Task , Appropriate ,Compliant. Continue to assess behaviors and condition will continue to monitor throughout the shift as needed. 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 Continue to assess patient for changes in above assessment. Monitor for medication needs, pain, and safety concerns. Hourly rounding performed to ensure safe environment.
[2017-01-23 21:32] VITALS: BP 119/76
--- NOTE | 2017-01-23 22:00 | NUR ---
Nursing Note: Nurse in the Day room to monitor Patients during activity, Nurse noted pt sitting on the Sofa visiting with peer and watching Movie at 2029, at 2034 Nurse heard a sound like snoring and noted pt to be turning pale with head falling back and toward the left, Nurse over to assess and noted pt to be non-responsive to verbal stimuli, Sternal rub completed without response noted, Pupils checked and noted to Be 2mm bilaterally and non-reactive to light, Radial and Carotid Pulse palpable and regular, respirations very shallow, skin very pale, mouth open and tongue noted to be pale/ruiz color, Rapid response called, Pt transferred to w/c and moved to room, upon arrival to room pt did open her eyes, unable to respond verbally, making incoherent sounds, Pt had been incontinent of B&B, Pt transferred to the bed and muscle tone remained flaccid. Rn Transplant and ICU Nurse responding to Rapid Response call, accucheck completed with result of 179 noted, Labs drawn per protocol. Call placed to Dr. Loco, informed of unresponsive episode with non-reactive pupils bilaterally, No new orders received. Pt began to respond to staff during process of completing Rapid Response protocol, L sided weakness noted. Second call placed to Dr. Loco informed of return of responsiveness, order received to complete Head CT if return of unresponsiveness is noted.
[2017-01-23 22:37] LABS: BASO # 0.1 x10^3/uL (0.0-0.2); BASO % 1 % (0-3); EOS # 0.3 x10^3/uL (0.0-0.7); EOS % 3 % (0-3); HEMATOCRIT 40.2 % (36.0-47.0); HEMOGLOBIN 13.5 g/dL (12.0-15.5); LYMPH # 3.6 x10^3/uL (1.0-4.8); LYMPH % 33 % (24-48); MEAN CORPUSCULAR HEMOGLOBIN 33 pg (25-35); MEAN CORPUSCULAR HGB CONC 34 g/dL (31-37); MEAN CORPUSCULAR VOLUME 99 fL (79-100); MONO % 9 % (0-9); NEUT # 5.9 x10^3uL (1.8-7.7); NEUT % 54 % (31-73); PLATELET COUNT 206 x10^3/uL (140-400); RED BLOOD COUNT 4.06 x10^6/uL (3.50-5.40); RED CELL DISTRIBUTION WIDTH 13.9 % (11.5-14.5); WHITE BLOOD COUNT 10.8 x10^3/uL (4.0-11.0)
[2017-01-23 22:41] LABS: CALCIUM 9.4 mg/dL (8.5-10.1); CREATININE 1.2 mg/dL (0.6-1.0); GFR 43.6; POTASSIUM 4.2 mmol/L (3.5-5.1)
[2017-01-24 00:59] LABS: BILIRUBIN,URINE NEG (NEG); CLARITY,URINE HAZY; COLOR,URINE YELLOW; GLUCOSE,URINE NEG (NEG)
[2017-01-24 01:00] LABS: BACTERIA,URINE FEW /HPF (0-FEW); NITRITE,URINE NEG (NEG); RBC,URINE OCC /HPF (0-2); SQUAMOUS EPITHELIAL CELL,UR FEW /LPF; UROBILINOGEN,URINE 0.2 mg/dL (0.2 mg/dL)
[2017-01-24 01:19] VITALS: BP 121/63
[2017-01-24 06:36] VITALS: BP 116/63
[2017-01-24] MEDS: METOPROLOL TART IMMED RELEASE 50 MG TABLET PO SCH ×2 (08:25→20:00)
[2017-01-24] MEDS: CHOLECALCIFEROL (VITAMIN D3) 1,000 UNIT TABLET PO SCH ×2 (08:25→17:41)
[2017-01-24] MEDS: ESCITALOPRAM 5 MG/5 ML PO SCH (09:23)
--- NOTE | 2017-01-24 14:00 | NUR ---
Behavior Intervention Response and Plan: BIRP Note: Behavior: Assumed Care of patient, patient located in Day Room at shift change. Patient exhibited the following behavior Interactive, Calm, Compliant. Brief assessment on rounds of vital signs, medication needs, lab studies, and pain. Treatment plan problems . Intervention: Patient assessed and the following interventions initiated safety checks 15 Minute Checks Call andrade in reach , Medications , Nutrition. Response: After interactions and interventions patient responded in the following manner, Interactive , Calm ,Compliant. Continue to assess behaviors and condition will continue to monitor throughout the shift as needed. 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 Continue to assess patient for changes in above assessment. Monitor for medication needs, pain, and safety concerns. Hourly rounding performed to ensure safe environment.
[2017-01-24 15:44] VITALS: BP 113/58
--- NOTE | 2017-01-24 19:49 | PDOC ---
Exam Fabian Demential Exam: Fabian Note: Please also refer to the separate dictated note~for this date of service dictated separately.~Patient seen individually. Discussed the patient with Nursing staff reviewed the chart.~Reviewed interim history and current functioning. Reviewed vital signs,~Labs/ Radiology~and current medications noted below. Continue current treatment with the changes noted in the dictated addendum note Assessment: Vital Signs: Vital Signs Date Time Temp Pulse Resp B/P (MAP) Pulse Ox O2 Delivery O2 Flow Rate FiO2 01/24/17 15:44 98.0 66 16 113/58 (76) 95 01/24/17 01:19 Room Air I&O Intake and Output 01/24/17 07:00 Intake Total 720 ml Balance 720 ml Intake Oral 720 ml # Voids 1 Labs: Laboratory Tests Test 01/23/17 21:05 01/24/17 00:10 01/24/17 01:15 Glucose (Fingerstick) 179 mg/dL (70-99) H Urine Collection Type Unknown Urine Color Yellow Urine Clarity Hazy Urine pH 6.0 Urine Specific [place] 1.010 Urine Protein Neg (NEG-TRACE) Urine Glucose (UA) Neg mg/dL (NEG) Urine Ketones (Stick) Neg mg/dL (NEG) Urine Blood Neg (NEG) Urine Nitrite Neg (NEG) Urine Bilirubin Neg (NEG) Urine Urobilinogen Dipstick 0.2 mg/dL (0.2 mg/dL) Urine Leukocyte Esterase Trace (NEG) Urine RBC Occ /HPF (0-2) Urine WBC 1-4 /HPF (0-4) Urine Squamous Epithelial Cells Few /LPF Urine Transitional Epithelial Cells Few /LPF Urine Bacteria Few /HPF (0-FEW) Lactic Acid Level 1.3 mmol/L (0.4-2.0) Current Medications: Meds: Current Medications Donepezil HCl (Aricept) 10 mg QHS PO Last administered on 01/23/17t 20:01; Start 01/08/17 at 22:00 Acetaminophen (Tylenol) 650 mg PRN Q6HRS PRN PO PAIN / TEMP; Start 01/08/17 at 21:45 Multi-Ingredient Ointment (Analgesic [place]) 1 shelia PRN QID PRN TP MUSCLE PAIN; Start 01/08/17 at 21:45 Al Hydroxide/Mg Hydroxide (Mylanta Plus Xs) 15 ml PRN AFTMEALHC PRN PO DYSPEPSIA; Start 01/08/17 at 21:45 Magnesium Hydroxide (Milk Of Magnesia) 2,400 mg PRN QHS PRN PO CONSTIPATION; Start 01/08/17 at 21:45 Olanzapine (Zyprexa Zydis) 2.5 mg PRN Q2HR PRN PO ANXIETY / AGITATION Last administered on 01/23/17 15:28; Start 01/08/17 at 22:45; Stop 01/23/17 at 21:41; Status DC Metoprolol Tartrate (Lopressor) 50 mg BID PO Last administered on 01/24/17 08: 25; Start 01/09/17 at 09:00 Atorvastatin Calcium (Lipitor) 20 mg QHS PO Last administered on 01/23/17 20:01 ; Start 01/09/17 at 21:00 Quetiapine Fumarate (SEROquel) 12.5 mg QHS PO Last administered on 01/11/17 20 :15; Start 01/09/17 at 21:00; Stop 01/12/17 at 18:13; Status DC Trazodone HCl (Desyrel) 25 mg PRN QHS PRN PO INSOMNIA, MAY REPEAT X1 Last administered on 01/09/17 21:09; Start 01/09/17 at 19:30; Stop 01/20/17 at 19:06 ; Status DC Quetiapine Fumarate (SEROquel) 25 mg QHS PO Last administered on 01/15/17 19: 01; Start 01/12/17 at 21:00; Stop 01/16/17 at 19:43; Status DC Escitalopram Oxalate (Lexapro) 5 mg DAILY PO Last administered on 01/15/17 07: 46; Start 01/13/17 at 09:00; Stop 01/17/17 at 16:25; Status DC Mirtazapine (Remeron) 7.5 mg QHS PO Last administered on 01/19/17 19:54; Start 01/13/17 at 21:00; Stop 01/20/17 at 19:06; Status DC Quetiapine Fumarate (SEROquel) 50 mg QHS PO Last administered on 01/16/17 20: 26; Start 01/16/17 at 21:00; Stop 01/17/17 at 19:36; Status DC Escitalopram Oxalate (Lexapro) 10 mg QHS PO ; Start 01/18/17 at 21:00; Stop at 21:00; Status DC Escitalopram Oxalate (Lexapro) 10 mg DAILY PO ; Start 01/18/17 at 09:00; Status Cancel Escitalopram Oxalate (Lexapro) 10 mg DAILY PO Last administered on 01/24/17 09: 23; Start 01/18/17 at 09:00 Risperidone (Risperdal) 0.25 mg HS PO Last administered on 01/18/17 19:20; Start 01/17/17 at 21:00; Stop 01/19/17 at 17:54; Status DC Risperidone (Risperdal) 0.5 mg HS PO Last administered on 01/23/17 20:03; Start 01/19/17 at 21:00 Mirtazapine (Remeron) 15 mg QHS PO Last administered on 01/23/17 20:02; Start 01/20/17 at 21:00 Trazodone HCl (Desyrel) 50 mg PRN QHS PRN PO INSOMNIA, January X1; Start 01/20/17 at 19:15 Vitamin D (Vitamin D3) 2,000 unit BIDACLD PO Last administered on 01/24/17 17: 41; Start 01/22/17 at 16:30 Cyanocobalamin (Vitamin B-12) 1,000 mcg [id number] IM Last administered on 14:35; Start 01/22/17 at 14:00 Active Scripts Active Reported Aricept (Donepezil Hcl) 10 Mg Tablet 10 Mg PO QHS Metoprolol Tartrate 50 Mg Tablet 50 Mg PO BID Diagnosis: Problems: (1) Confusion (2) Fall (3) Dementia with behavioral disturbance (4) Anxiety disorder (5) Dementia in Alzheimer's disease with delusions (6) Dementia in Alzheimer's disease with depression (7) Dementia, vascular, with delusions (8) Dementia, vascular, with depression (9) Impulse control disorder JIMBO MARLEY MD January 24, 2017 19:49
[2017-01-24] MEDS: risperiDONE 0.5 MG TABLET. PO SCH ×3 (19:59→22:28)
[2017-01-24] MEDS: MIRTAZAPINE 15 MG TABLET PO SCH ×3 (20:00→22:28)
[2017-01-24] MEDS: DONEPEZIL HCL 10 MG TABLET PO SCH ×3 (20:00→22:28)
[2017-01-24] MEDS: ATORVASTATIN CALCIUM 20 MG TABLET PO SCH ×3 (20:00→22:28)
--- NOTE | 2017-01-24 22:20 | NUR ---
Nursing Note: Pt up in the day room sitting in chair having a conversation with herself. Pt noted to be talking and responding as if she were two separate people. Nurse attempted to administer HS Medication, Pt refused stating she did not take medications, pt then stated "Just ask Dr. 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 Razo do I take medications, No Bebe you do not take medications" Pt then turned to nurse and stated "see Dr. Razo just said I don't take medications" Multiple nurses attempted to administer medications, Pt remains very adamant and becomes belligerent with attempts to administer Medications. Pt then ambulated to the shower with Female TELEVISION PRODUCER, after shower pt stated she was hungry, TELEVISION PRODUCER obtained Nutrigrain bar, Nurse hid whole medications inside, Pt consumed without complaints.
--- NOTE | 2017-01-24 22:39 | PN ---
DATE: 01/22/2017 PSYCHIATRIC PROGRESS NOTE This is a late entry, covers elements not covered in my initial note. SUBJECTIVE: Per nursing report, the patient has been intermittently hallucinating about her daughter and mother, compliant with medications, and going out to the dining room, which is an improvement for her. REVIEW OF SYSTEMS: No CV, , pulmonary, eye, ENT system symptoms on review. Reliability poor. MENTAL STATUS EXAM: Oriented to herself. Insight, judgment, recent and remote memory, attention, concentration, fund of knowledge poor, consistent with her diagnosis as mentioned in my initial note. PLAN: Continue current psychotropics, may need to increase Risperdal with psychosis if it does not improve further with time. MAN Brooks MARLEY MD DR: JEAN/filemon JOB#: [id number] / [id number]
--- NOTE | 2017-01-24 22:55 | NUR ---
Behavior Intervention Response and Plan: BIRP Note: Behavior: Assumed Care of patient, patient located in Day Room at shift change. Patient exhibited the following behavior Irritable, Resistive, Hallucinating. Brief assessment on rounds of vital signs, medication needs, lab studies, and pain. Treatment plan problems Dementia with BD and Fall Risk. Intervention: Patient assessed and the following interventions initiated safety checks 15 Minute Checks Cognitive Assessment , Head to toe Assessment , Medications. Response: After interactions and interventions patient responded in the following manner, , Irritable ,Non Compliant. Continue to assess behaviors and condition will continue to monitor throughout the shift as needed. 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 Continue to assess patient for changes in above assessment. Monitor for medication needs, pain, and safety concerns. Hourly rounding performed to ensure safe environment.
--- NOTE | 2017-01-24 23:32 | PN ---
DATE: 01/23/2017 This is a late entry of 01/23/2017 and covers elements not covered in my initial note. The patient slept 6-1/2 hours previous night, cooperative in medications. Psychotic symptoms, hallucinations are better. Refused to bath. Glucose 235. REVIEW OF SYSTEMS: No CV, , pulmonary, eye, ENT system symptoms on review. Reliability poor. MENTAL STATUS EXAM: Oriented to herself. Insight, judgment, recent and remote memory, attention, concentration, fund of knowledge poor, consistent with her diagnosis mentioned in my initial note. PLAN: Continue psychotropics mentioned in my initial note. Consider increasing Risperdal only if needed. MAN Brooks MARLEY MD DR: JEAN/filemon JOB#: [id number] / [id number]
--- NOTE | 2017-01-25 00:31 | PN ---
DATE: 01/24/2017 SUBJECTIVE: This is a 76-year-old female who had a Rapid Response called on her yesterday evening. She had received Zyprexa Zydis at 1530 for unknown reasons. At 8 o'clock, she received her normal medications, which included metoprolol 100 mg, Remeron 15 mg, Risperdal 0.5 mg. At 9 o'clock, she was found unresponsive in the day room. It appears that she probably had a vasovagal episode. The vital signs were stable throughout and she recovered nicely. PHYSICAL EXAMINATION: VITAL SIGNS: Today, blood pressure 116/63, pulse 71, respirations 16, pulse ox 95% on room air. GENERAL: The patient is resting quietly in her room. She did recognize me. HEENT: She is talking to her mother and told me that she told her mother that I was a sweet person. Her color is good. Her throat is clear. NECK: Supple. LUNGS: Clear. CARDIOVASCULAR: Regular rhythm and rate. ABDOMEN: Soft, nontender. EXTREMITIES: Without edema. LABORATORY DATA: Urinalysis with 1-4 white cells, trace leukocyte esterase. Chemistry, she had an initial lactic acid of 2.2 and it came down to 1.3. BUN 23, creatinine 1.2, glucose was 179. ASSESSMENT: 1. Transient lactic acidosis due to vasovagal episode. 2. Mild hyperglycemia. 2. Polypharmacy. PLAN: Discontinue Zydis, decrease her metoprolol to 50 mg twice a day, and monitor for drug interactions. MELISSA BOB DO DR: HECTOR/filemon JOB#: [id number] / [id number]
[2017-01-25 06:51] VITALS: BP 141/67
[2017-01-25] MEDS: ESCITALOPRAM 5 MG/5 ML PO SCH (08:20)
[2017-01-25] MEDS: METOPROLOL TART IMMED RELEASE 50 MG TABLET PO SCH ×2 (08:20→19:53)
[2017-01-25] MEDS: CHOLECALCIFEROL (VITAMIN D3) 1,000 UNIT TABLET PO SCH ×2 (08:21→16:23)
--- NOTE | 2017-01-25 10:42 | NUR ---
MAIA spoke w/Corrine at [facility] regarding new referral. Corrine stated PT's family has not yet toured the facility. Corrine will have nursing look over information and wait for family contact. SW to follow up w/family. MAIA contacted Alicia, Pt's dtr regarding visiting referral facilities. Alicia stated she was on her way to tour [facility] at this time. MAIA asked about additional referral facilities and Alicia stated she would like to wait until her tour today.
--- NOTE | 2017-01-25 12:23 | NUR ---
Behavior Intervention Response and Plan: BIRP Note: Behavior: Assumed Care of patient, patient located in Hallway at shift change. Patient exhibited the following behavior Disorganized, Hallucinating, Resistive. Brief assessment on rounds of vital signs, medication needs, lab studies, and pain. Treatment plan problems . Intervention: Patient assessed and the following interventions initiated safety checks 15 Minute Checks Cognitive Assessment , Head to toe Assessment , Medications. Response: After interactions and interventions patient responded in the following manner, Calm , Compliant ,Cooperative. Continue to assess behaviors and condition will continue to monitor throughout the shift as needed. 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 Continue to assess patient for changes in above assessment. Monitor for medication needs, pain, and safety concerns. Hourly rounding performed to ensure safe environment.
[2017-01-25 16:08] VITALS: BP 121/78
[2017-01-25] MEDS: DONEPEZIL HCL 10 MG TABLET PO SCH (19:52)
[2017-01-25] MEDS: MIRTAZAPINE 15 MG TABLET PO SCH (19:52)
[2017-01-25] MEDS: risperiDONE 0.5 MG TABLET. PO SCH (19:53)
[2017-01-25] MEDS: ATORVASTATIN CALCIUM 20 MG TABLET PO SCH (19:53)
--- NOTE | 2017-01-25 20:05 | PDOC ---
Exam Fabian Demential Exam: Fabian Note: Please also refer to the separate dictated note~for this date of service dictated separately.~Patient seen individually. Discussed the patient with Nursing staff reviewed the chart.~Reviewed interim history and current functioning. Reviewed vital signs,~Labs/ Radiology~and current medications noted below. Continue current treatment with the changes noted in the dictated addendum note Assessment: Vital Signs: Vital Signs Date Time Temp Pulse Resp B/P (MAP) Pulse Ox O2 Delivery O2 Flow Rate FiO2 01/25/17 19:53 73 121/78 01/25/17 16:08 98.2 18 98 01/24/17 01:19 Room Air I&O Intake and Output 01/25/17 07:00 Intake Total 480 ml Balance 480 ml Intake Oral 480 ml Current Medications: Meds: Current Medications Donepezil HCl (Aricept) 10 mg QHS PO Last administered on 01/25/17 19:52; Start 01/08/17 at 22:00 Acetaminophen (Tylenol) 650 mg PRN Q6HRS PRN PO PAIN / TEMP; Start 01/08/17 at 21:45 Multi-Ingredient Ointment (Analgesic [place]) 1 shelia PRN QID PRN TP MUSCLE PAIN; Start 01/08/17 at 21:45 Al Hydroxide/Mg Hydroxide (Mylanta Plus Xs) 15 ml PRN AFTMEALHC PRN PO DYSPEPSIA; Start 01/08/17 at 21:45 Magnesium Hydroxide (Milk Of Magnesia) 2,400 mg PRN QHS PRN PO CONSTIPATION; Start 01/08/17 at 21:45 Olanzapine (Zyprexa Zydis) 2.5 mg PRN Q2HR PRN PO ANXIETY / AGITATION Last administered on 01/23/17 15:28; Start 01/08/17 at 22:45; Stop 01/23/17 at 21:41; Status DC Metoprolol Tartrate (Lopressor) 50 mg BID PO Last administered on 01/25/17 19: 53; Start 01/09/17 at 09:00 Atorvastatin Calcium (Lipitor) 20 mg QHS PO Last administered on 01/25/17 19:53 ; Start 01/09/17 at 21:00 Quetiapine Fumarate (SEROquel) 12.5 mg QHS PO Last administered on 01/11/17 20 :15; Start 01/09/17 at 21:00; Stop 01/12/17 at 18:13; Status DC Trazodone HCl (Desyrel) 25 mg PRN QHS PRN PO INSOMNIA, JANUARY REPEAT X1 Last administered on 01/09/17 21:09; Start 01/09/17 at 19:30; Stop 01/20/17 at 19:06 ; Status DC Quetiapine Fumarate (SEROquel) 25 mg QHS PO Last administered on 01/15/17 19: 01; Start 01/12/17 at 21:00; Stop 01/16/17 at 19:43; Status DC Escitalopram Oxalate (Lexapro) 5 mg DAILY PO Last administered on 01/15/17 07: 46; Start 01/13/17 at 09:00; Stop 01/17/17 at 16:25; Status DC Mirtazapine (Remeron) 7.5 mg QHS PO Last administered on 01/19/17 19:54; Start 01/13/17 at 21:00; Stop 01/20/17 at 19:06; Status DC Quetiapine Fumarate (SEROquel) 50 mg QHS PO Last administered on 01/16/17 20: 26; Start 01/16/17 at 21:00; Stop 01/17/17 at 19:36; Status DC Escitalopram Oxalate (Lexapro) 10 mg QHS PO ; Start 01/18/17 at 21:00; Stop at 21:00; Status DC Escitalopram Oxalate (Lexapro) 10 mg DAILY PO ; Start 01/18/17 at 09:00; Status Cancel Escitalopram Oxalate (Lexapro) 10 mg DAILY PO Last administered on 01/25/17 08: 20; Start 01/18/17 at 09:00 Risperidone (Risperdal) 0.25 mg HS PO Last administered on 01/18/17 19:20; Start 01/17/17 at 21:00; Stop 01/19/17 at 17:54; Status DC Risperidone (Risperdal) 0.5 mg HS PO Last administered on 01/25/17 19:53; Start 01/19/17 at 21:00 Mirtazapine (Remeron) 15 mg QHS PO Last administered on 01/25/17 19:52; Start 01/20/17 at 21:00 Trazodone HCl (Desyrel) 50 mg PRN QHS PRN PO INSOMNIA, JANUARY REPEAT X1; Start 01/20/17 at 19:15 Vitamin D (Vitamin D3) 2,000 unit BIDACLD PO Last administered on 01/25/17 16: 23; Start 01/22/17 at 16:30 Cyanocobalamin (Vitamin B-12) 1,000 mcg [id number] IM Last administered on 14:35; Start 01/22/17 at 14:00 Active Scripts Active Reported Aricept (Donepezil Hcl) 10 Mg Tablet 10 Mg PO QHS Metoprolol Tartrate 50 Mg Tablet 50 Mg PO BID Diagnosis: Problems: (1) Confusion (2) Fall (3) Dementia with behavioral disturbance (4) Anxiety disorder (5) Dementia in Alzheimer's disease with delusions (6) Dementia in Alzheimer's disease with depression (7) Dementia, vascular, with delusions (8) Dementia, vascular, with depression (9) Impulse control disorder JIMBO MARLEY MD January 25, 2017 20:05
--- NOTE | 2017-01-25 23:40 | NUR ---
Behavior Intervention Response and Plan: BIRP Note: Behavior: Assumed Care of patient, patient located in at shift change. Patient exhibited the following behavior Calm, Withdrawn, Disorganized. Brief assessment on rounds of vital signs, medication needs, lab studies, and pain. Treatment plan problems 1 and2. Intervention: Patient assessed and the following interventions initiated safety checks 15 Minute Checks Cognitive Assessment , Head to toe Assessment , Medications. Response: After interactions and interventions patient responded in the following manner, Calm , Compliant ,Cooperative. Continue to assess behaviors and condition will continue to monitor throughout the shift as needed. Plan: Continue to monitor Master Treatment Plan for patient's progress toward short term goals of Decreased Agitation, Decreased Aggression, long-term goals to return to previous living setting vs placement. Continue to assess patient for changes in above assessment. Monitor for medication needs, pain, and safety concerns. Hourly rounding performed to ensure safe environment.
--- NOTE | 2017-01-26 00:52 | PN ---
DATE: 01/24/2017 This is a late entry, covers elements not covered in my initial note. The previous evening, the patient had a rapid response. She is not very interactive and responsive. No clear reason noted for this other than she received Zyprexa p.r.n. a few hours before that. Today on 01/24/2017, she has been bright and interactive, confused. REVIEW OF SYSTEMS: No CV, , pulmonary, eye, ENT system, symptoms on review. Reliability poor. MENTAL STATUS EXAM: Oriented to herself. Insight, judgment, recent and remote memory, attention, concentration, fund of knowledge poor, consistent with her diagnosis as mentioned in my initial note. PLAN: Stop the Zyprexa p.r.n. Continue rest of the psychotropics mentioned in my initial note. Adjust as clinically indicated. MAN Brooks MARLEY MD DR: JEAN/filemno JOB#: [id number] / [id number]
[2017-01-26 05:59] VITALS: BP 135/69
[2017-01-26] MEDS: METOPROLOL TART IMMED RELEASE 50 MG TABLET PO SCH ×2 (07:55→19:38)
[2017-01-26] MEDS: ESCITALOPRAM 5 MG/5 ML PO SCH (07:55)
--- NOTE | 2017-01-26 09:46 | NUR ---
Behavior Intervention Response and Plan: BIRP Note: Behavior: Assumed Care of patient, patient located in Patient Room at shift change. Patient exhibited the following behavior Disorganized, Social, Calm. Brief assessment on rounds of vital signs, medication needs, lab studies, and pain. Treatment plan problems . Intervention: Patient assessed and the following interventions initiated safety checks 15 Minute Checks Head to toe Assessment , Oral Hydration , Medications. Response: After interactions and interventions patient responded in the following manner, Disorganized , Wandering ,Drowsy. Continue to assess behaviors and condition will continue to monitor throughout the shift as needed. 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 Continue to assess patient for changes in above assessment. Monitor for medication needs, pain, and safety concerns. Hourly rounding performed to ensure safe environment.
[2017-01-26] MEDS: CHOLECALCIFEROL (VITAMIN D3) 1,000 UNIT TABLET PO SCH ×3 (11:36→19:38)
--- NOTE | 2017-01-26 12:55 | NUR ---
Jo Ann LV out to randa Pt. MAIA provided updated clinicals. MAIA will wait for call back from Ingrid regarding admit.
[2017-01-26 14:47] VITALS: BP 134/58
[2017-01-26] MEDS: risperiDONE 0.5 MG TABLET. PO SCH (19:37)
[2017-01-26] MEDS: ATORVASTATIN CALCIUM 20 MG TABLET PO SCH (19:37)
[2017-01-26] MEDS: DONEPEZIL HCL 10 MG TABLET PO SCH (19:38)
[2017-01-26] MEDS: MIRTAZAPINE 15 MG TABLET PO SCH (19:38)
--- NOTE | 2017-01-26 20:00 | NUR ---
Behavior Intervention Response and Plan: BIRP Note: Behavior: Assumed Care of patient, patient located in Patient Room at shift change. Patient exhibited the following behavior Anxious, Withdrawn, Disorganized, Delusions (believes her father is going to take her home tonight); Hallucinations (speaking to and answering as if she is her father). Brief assessment on rounds of vital signs, medication needs, lab studies, and pain. Treatment plan problems . Intervention: Patient assessed and the following interventions initiated safety checks 15 Minute Checks Cognitive Assessment , Head to toe Assessment , Medications, Redirection. Response: After interactions and interventions patient responded in the following manner, Calm , Interactive ,Compliant, Resistive to reality/reorientation. Continue to assess behaviors and condition will continue to monitor throughout the shift as needed. 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 Continue to assess patient for changes in above assessment. Monitor for medication needs, pain, and safety concerns. Hourly rounding performed to ensure safe environment.
--- NOTE | 2017-01-26 21:04 | PDOC ---
Exam Fabian Demential Exam: Fabian Note: Please also refer to the separate dictated note~for this date of service dictated separately.~Patient seen individually. Discussed the patient with Nursing staff reviewed the chart.~Reviewed interim history and current functioning. Reviewed vital signs,~Labs/ Radiology~and current medications noted below. Continue current treatment with the changes noted in the dictated addendum note Assessment: Vital Signs: Vital Signs Date Time Temp Pulse Resp B/P (MAP) Pulse Ox O2 Delivery O2 Flow Rate FiO2 01/26/17 19:38 73 134/58 01/26/17 14:47 97.4 18 96 01/24/17 01:19 Room Air I&O Intake and Output 01/26/17 07:00 Intake Total 1080 ml Balance 1080 ml Intake Oral 1080 ml Current Medications: Meds: Current Medications Donepezil HCl (Aricept) 10 mg QHS PO Last administered on 01/26/17 19:38; Start 01/08/17 at 22:00 Acetaminophen (Tylenol) 650 mg PRN Q6HRS PRN PO PAIN / TEMP Last administered on 01/26/17 06:04; Start 01/08/17 at 21:45 Multi-Ingredient Ointment (Analgesic [place]) 1 shelia PRN QID PRN TP MUSCLE PAIN; Start 01/08/17 at 21:45 Al Hydroxide/Mg Hydroxide (Mylanta Plus Xs) 15 ml PRN AFTMEALHC PRN PO DYSPEPSIA; Start 01/08/17 at 21:45 Magnesium Hydroxide (Milk Of Magnesia) 2,400 mg PRN QHS PRN PO CONSTIPATION; Start 01/08/17 at 21:45 Olanzapine (Zyprexa Zydis) 2.5 mg PRN Q2HR PRN PO ANXIETY / AGITATION Last administered on 01/23/17 15:28; Start 01/08/17 at 22:45; Stop 01/23/17 at 21:41; Status DC Metoprolol Tartrate (Lopressor) 50 mg BID PO Last administered on 01/26/17 19: 38; Start 01/09/17 at 09:00 Atorvastatin Calcium (Lipitor) 20 mg QHS PO Last administered on 01/26/17 19:37 ; Start 01/09/17 at 21:00 Quetiapine Fumarate (SEROquel) 12.5 mg QHS PO Last administered on 01/11/17 20 :15; Start 01/09/17 at 21:00; Stop 01/12/17 at 18:13; Status DC Trazodone HCl (Desyrel) 25 mg PRN QHS PRN PO INSOMNIA, MAY REPEAT X1 Last administered on 01/09/17 21:09; Start 01/09/17 at 19:30; Stop 01/20/17 at 19:06 ; Status DC Quetiapine Fumarate (SEROquel) 25 mg QHS PO Last administered on 01/15/17 19: 01; Start 01/12/17 at 21:00; Stop 01/16/17 at 19:43; Status DC Escitalopram Oxalate (Lexapro) 5 mg DAILY PO Last administered on 01/15/17 07: 46; Start 01/13/17 at 09:00; Stop 01/17/17 at 16:25; Status DC Mirtazapine (Remeron) 7.5 mg QHS PO Last administered on 01/19/17 19:54; Start 01/13/17 at 21:00; Stop 01/20/17 at 19:06; Status DC Quetiapine Fumarate (SEROquel) 50 mg QHS PO Last administered on 01/16/17 20: 26; Start 01/16/17 at 21:00; Stop 01/17/17 at 19:36; Status DC Escitalopram Oxalate (Lexapro) 10 mg QHS PO ; Start 01/18/17 at 21:00; Stop at 21:00; Status DC Escitalopram Oxalate (Lexapro) 10 mg DAILY PO ; Start 01/18/17 at 09:00; Status Cancel Escitalopram Oxalate (Lexapro) 10 mg DAILY PO Last administered on 01/26/17 07: 55; Start 01/18/17 at 09:00 Risperidone (Risperdal) 0.25 mg HS PO Last administered on 01/18/17 19:20; Start 01/17/17 at 21:00; Stop 01/19/17 at 17:54; Status DC Risperidone (Risperdal) 0.5 mg HS PO Last administered on 01/26/17 19:37; Start 01/19/17 at 21:00 Mirtazapine (Remeron) 15 mg QHS PO Last administered on 01/26/17 19:38; Start 01/20/17 at 21:00 Trazodone HCl (Desyrel) 50 mg PRN QHS PRN PO INSOMNIA, JANUARY REPEAT X1; Start 01/20/17 at 19:15 Vitamin D (Vitamin D3) 2,000 unit BIDACLD PO Last administered on 01/26/17 19: 38; Start 01/22/17 at 16:30 Cyanocobalamin (Vitamin B-12) 1,000 mcg [id number] IM Last administered on 14:35; Start 01/22/17 at 14:00 Active Scripts Active Reported Aricept (Donepezil Hcl) 10 Mg Tablet 10 Mg PO QHS Metoprolol Tartrate 50 Mg Tablet 50 Mg PO BID Diagnosis: Problems: (1) Confusion (2) Fall (3) Dementia with behavioral disturbance (4) Anxiety disorder (5) Dementia in Alzheimer's disease with delusions (6) Dementia in Alzheimer's disease with depression (7) Dementia, vascular, with delusions (8) Dementia, vascular, with depression (9) Impulse control disorder JIMBO MARLEY MD January 26, 2017 21:04
--- NOTE | 2017-01-27 00:12 | PN ---
DATE: 01/25/2017 This is a late entry for 01/25/2017 covers elements not covered in my initial note. The patient takes her medications crushed, remains confused, anxious, going out for her meals. REVIEW OF SYSTEMS: No CV, , pulmonary, eye system symptoms on review. Reliability poor. MENTAL STATUS EXAM: Oriented to herself. Insight, judgment, recent and remote memory, attention, concentration, fund of knowledge poor, consistent with her diagnosis mentioned in my initial note. PLAN: Continue current psychotropics. Adjust further as clinically indicated. MAN Brooks MARLEY MD DR: JEAN/filemon JOB#: [id number] / [id number]
[2017-01-27 06:57] VITALS: BP 131/50
[2017-01-27] MEDS: ESCITALOPRAM 5 MG/5 ML PO SCH (08:18)
[2017-01-27] MEDS: METOPROLOL TART IMMED RELEASE 50 MG TABLET PO SCH ×2 (08:19→19:58)
--- NOTE | 2017-01-27 09:29 | NUR ---
Behavior Intervention Response and Plan: BIRP Note: Behavior: Assumed Care of patient, patient located in Patient Room at shift change. Patient exhibited the following behavior Disorganized, Calm, Wandering. Brief assessment on rounds of vital signs, medication needs, lab studies, and pain. Treatment plan problems . Intervention: Patient assessed and the following interventions initiated safety checks 15 Minute Checks Head to toe Assessment , Nutrition , Medications. Response: After interactions and interventions patient responded in the following manner, Disorganized , Delusions ,Drowsy. Continue to assess behaviors and condition will continue to monitor throughout the shift as needed. 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 Continue to assess patient for changes in above assessment. Monitor for medication needs, pain, and safety concerns. Hourly rounding performed to ensure safe environment.
[2017-01-27] MEDS: CHOLECALCIFEROL (VITAMIN D3) 1,000 UNIT TABLET PO SCH (15:37)
[2017-01-27 15:53] VITALS: BP 113/56
[2017-01-27] MEDS: MIRTAZAPINE 15 MG TABLET PO SCH (19:51)
[2017-01-27] MEDS: ATORVASTATIN CALCIUM 20 MG TABLET PO SCH (19:51)
[2017-01-27] MEDS: DONEPEZIL HCL 10 MG TABLET PO SCH (19:51)
[2017-01-27] MEDS: risperiDONE 0.5 MG TABLET. PO SCH (19:51)
--- NOTE | 2017-01-27 19:55 | NUR ---
Behavior Intervention Response and Plan: BIRP Note: Behavior: Assumed Care of patient, patient located in Patient Room at shift change. Patient exhibited the following behavior Delusions, Withdrawn, Compliant. Brief assessment on rounds of vital signs, medication needs, lab studies, and pain. Treatment plan problems . Intervention: Patient assessed and the following interventions initiated safety checks 15 Minute Checks Cognitive Assessment , Head to toe Assessment , Medications. Response: After interactions and interventions patient responded in the following manner, Delusions , Withdrawn ,Compliant. Continue to assess behaviors and condition will continue to monitor throughout the shift as needed. 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 Continue to assess patient for changes in above assessment. Monitor for medication needs, pain, and safety concerns. Hourly rounding performed to ensure safe environment.
--- NOTE | 2017-01-27 22:00 | PDOC ---
Exam Fabian Demential Exam: Fabian Note: Please also refer to the separate dictated note~for this date of service dictated separately.~Patient seen individually. Discussed the patient with Nursing staff reviewed the chart.~Reviewed interim history and current functioning. Reviewed vital signs,~Labs/ Radiology~and current medications noted below. Continue current treatment with the changes noted in the dictated addendum note Assessment: Vital Signs: Vital Signs Date Time Temp Pulse Resp B/P (MAP) Pulse Ox O2 Delivery O2 Flow Rate FiO2 01/27/17 19:58 85 99/57 01/27/17 15:53 98.3 18 97 01/24/17 01:19 Room Air I&O Intake and Output 01/27/17 07:00 Intake Total 900 ml Balance 900 ml Intake Oral 900 ml Current Medications: Meds: Current Medications Donepezil HCl (Aricept) 10 mg QHS PO Last administered on 01/27/17 19:51; Start 01/08/17 at 22:00 Acetaminophen (Tylenol) 650 mg PRN Q6HRS PRN PO PAIN / TEMP Last administered on 01/26/17 06:04; Start 01/08/17 at 21:45 Multi-Ingredient Ointment (Analgesic [place]) 1 shelia PRN QID PRN TP MUSCLE PAIN; Start 01/08/17 at 21:45 Al Hydroxide/Mg Hydroxide (Mylanta Plus Xs) 15 ml PRN AFTMEALHC PRN PO DYSPEPSIA; Start 01/08/17 at 21:45 Magnesium Hydroxide (Milk Of Magnesia) 2,400 mg PRN QHS PRN PO CONSTIPATION; Start 01/08/17 at 21:45 Olanzapine (Zyprexa Zydis) 2.5 mg PRN Q2HR PRN PO ANXIETY / AGITATION Last administered on 01/23/17 15:28; Start 01/08/17 at 22:45; Stop 01/23/17 at 21:41; Status DC Metoprolol Tartrate (Lopressor) 50 mg BID PO Last administered on 01/27/17 08: 19; Start 01/09/17 at 09:00 Atorvastatin Calcium (Lipitor) 20 mg QHS PO Last administered on 01/27/17 19: 51; Start 01/09/17 at 21:00 Quetiapine Fumarate (SEROquel) 12.5 mg QHS PO Last administered on 01/11/17 20 :15; Start 01/09/17 at 21:00; Stop 01/12/17 at 18:13; Status DC Trazodone HCl (Desyrel) 25 mg PRN QHS PRN PO INSOMNIA, MAY REPEAT X1 Last administered on 01/09/17 21:09; Start 01/09/17 at 19:30; Stop 01/20/17 at 19:06 ; Status DC Quetiapine Fumarate (SEROquel) 25 mg QHS PO Last administered on 01/15/17 19: 01; Start 01/12/17 at 21:00; Stop 01/16/17 at 19:43; Status DC Escitalopram Oxalate (Lexapro) 5 mg DAILY PO Last administered on 01/15/17 07: 46; Start 01/13/17 at 09:00; Stop 01/17/17 at 16:25; Status DC Mirtazapine (Remeron) 7.5 mg QHS PO Last administered on 01/19/17 19:54; Start 01/13/17 at 21:00; Stop 01/20/17 at 19:06; Status DC Quetiapine Fumarate (SEROquel) 50 mg QHS PO Last administered on 01/16/17 20: 26; Start 01/16/17 at 21:00; Stop 01/17/17 at 19:36; Status DC Escitalopram Oxalate (Lexapro) 10 mg QHS PO ; Start 01/18/17 at 21:00; Stop at 21:00; Status DC Escitalopram Oxalate (Lexapro) 10 mg DAILY PO ; Start 01/18/17 at 09:00; Status Cancel Escitalopram Oxalate (Lexapro) 10 mg DAILY PO Last administered on 01/27/17 08 :18; Start 01/18/17 at 09:00 Risperidone (Risperdal) 0.25 mg HS PO Last administered on 01/18/17 19:20; Start 01/17/17 at 21:00; Stop 01/19/17 at 17:54; Status DC Risperidone (Risperdal) 0.5 mg HS PO Last administered on 01/27/17 19:51; Start 01/19/17 at 21:00 Mirtazapine (Remeron) 15 mg QHS PO Last administered on 01/27/17 19:51; Start 01/20/17 at 21:00 Trazodone HCl (Desyrel) 50 mg PRN QHS PRN PO INSOMNIA, JANUARY REPEAT X1; Start 01/20/17 at 19:15 Vitamin D (Vitamin D3) 2,000 unit BIDACLD PO Last administered on 01/27/17 15: 37; Start 01/22/17 at 16:30 Cyanocobalamin (Vitamin B-12) 1,000 mcg [id number] IM Last administered on 14:35; Start 01/22/17 at 14:00 Active Scripts Active Reported Aricept (Donepezil Hcl) 10 Mg Tablet 10 Mg PO QHS Metoprolol Tartrate 50 Mg Tablet 50 Mg PO BID JIMBO MARLEY MD January 27, 2017 22:00
[2017-01-28 06:19] VITALS: BP 123/55
[2017-01-28] MEDS: METOPROLOL TART IMMED RELEASE 50 MG TABLET PO SCH ×2 (08:08→19:39)
[2017-01-28] MEDS: CHOLECALCIFEROL (VITAMIN D3) 1,000 UNIT TABLET PO SCH ×2 (08:09→16:10)
[2017-01-28] MEDS: ESCITALOPRAM 5 MG/5 ML PO SCH (08:10)
--- NOTE | 2017-01-28 09:31 | NUR ---
Behavior Intervention Response and Plan: BIRP Note: Behavior: Assumed Care of patient, patient located in Patient Room at shift change. Patient exhibited the following behavior Calm, Disorganized, Withdrawn. Brief assessment on rounds of vital signs, medication needs, lab studies, and pain. Treatment plan problems . Intervention: Patient assessed and the following interventions initiated safety checks 15 Minute Checks Head to toe Assessment , Medications , Nutrition. Response: After interactions and interventions patient responded in the following manner, Disorganized , Appropriate ,Calm. Continue to assess behaviors and condition will continue to monitor throughout the shift as needed. 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 Continue to assess patient for changes in above assessment. Monitor for medication needs, pain, and safety concerns. Hourly rounding performed to ensure safe environment.
--- NOTE | 2017-01-28 09:41 | PN ---
DATE: 01/26/2017 PSYCHIATRIC PROGRESS NOTE This is a late entry for 01/26/2017, covers elements not covered in my initial note. Overall, the patient remains confused, little more interactive, coming out for meals, was evaluated by nursing facility earlier on 01/26/2017. REVIEW OF SYSTEMS: No CV, , eye, ENT or pulmonary system symptoms on review. Reliability poor. MENTAL STATUS EXAM: Oriented to herself. Insight, judgment, recent and remote memory, attention, concentration, fund of knowledge poor, consistent with her diagnosis mentioned in my initial note. PLAN: Continue psychotropics mentioned in my initial note. Adjust further as clinically indicated. JIMBO MARLEY MD DR: JEAN/filemon JOB#: [id number] / [id number]
--- NOTE | 2017-01-28 10:45 | NUR ---
THERAPEUTIC RECREATION GROUP NOTE TITLE :Balloon Bop with Noodles ACTIVITY : Activities and Games GOAL : Increase socialization and alertness. Maintain/improve mental and physical functioning. DURATION : 60 Minutes RESPONSE : No participation.
--- NOTE | 2017-01-28 12:41 | NUR ---
SW spoke w/Jo Ann Mendoza regarding accepting new referral. Pt's dtrAliica will be at facility on Wednesday to complete admission paperwork and then will notify this SW of transportation and dc time for Wednesday.
--- NOTE | 2017-01-28 14:00 | NUR ---
THERAPEUTIC RECREATION GROUP NOTE TITLE :[place]/ 20 ACTIVITY : Activities and Games GOAL : Increase social interaction, fine motor skills. Maintain or improve mental functioning. Decrease restlessness DURATION : 60 minutes RESPONSE : No participation.
[2017-01-28 16:16] VITALS: BP 127/52
[2017-01-28] MEDS: ATORVASTATIN CALCIUM 20 MG TABLET PO SCH (19:38)
[2017-01-28] MEDS: MIRTAZAPINE 15 MG TABLET PO SCH (19:38)
[2017-01-28] MEDS: DONEPEZIL HCL 10 MG TABLET PO SCH (19:38)
[2017-01-28] MEDS: risperiDONE 0.5 MG TABLET. PO SCH (19:39)
--- NOTE | 2017-01-28 21:01 | PDOC ---
Exam Fabian Demential Exam: Fabian Note: Please also refer to the separate dictated note~for this date of service dictated separately.~Patient seen individually. Discussed the patient with Nursing staff reviewed the chart.~Reviewed interim history and current functioning. Reviewed vital signs,~Labs/ Radiology~and current medications noted below. Continue current treatment with the changes noted in the dictated addendum note Assessment: Vital Signs: Vital Signs Date Time Temp Pulse Resp B/P (MAP) Pulse Ox O2 Delivery O2 Flow Rate FiO2 01/28/17 19:39 66 127/52 01/28/17 16:16 97.4 18 98 01/24/17 01:19 Room Air I&O Intake and Output 01/28/17 07:00 Intake Total 1380 ml Balance 1380 ml Intake Oral 1380 ml Current Medications: Meds: Current Medications Donepezil HCl (Aricept) 10 mg QHS PO Last administered on 01/28/17 19:38; Start 01/08/17 at 22:00 Acetaminophen (Tylenol) 650 mg PRN Q6HRS PRN PO PAIN / TEMP Last administered on 01/26/17 06:04; Start 01/08/17 at 21:45 Multi-Ingredient Ointment (Analgesic [place]) 1 shelia PRN QID PRN TP MUSCLE PAIN; Start 01/08/17 at 21:45 Al Hydroxide/Mg Hydroxide (Mylanta Plus Xs) 15 ml PRN AFTMEALHC PRN PO DYSPEPSIA; Start 01/08/17 at 21:45 Magnesium Hydroxide (Milk Of Magnesia) 2,400 mg PRN QHS PRN PO CONSTIPATION; Start 01/08/17 at 21:45 Olanzapine (Zyprexa Zydis) 2.5 mg PRN Q2HR PRN PO ANXIETY / AGITATION Last administered on 01/23/17 15:28; Start 01/08/17 at 22:45; Stop 01/23/17 at 21:41; Status DC Metoprolol Tartrate (Lopressor) 50 mg BID PO Last administered on 01/28/17 19: 39; Start 01/09/17 at 09:00 Atorvastatin Calcium (Lipitor) 20 mg QHS PO Last administered on 01/28/17 19: 38; Start 01/09/17 at 21:00 Quetiapine Fumarate (SEROquel) 12.5 mg QHS PO Last administered on 01/11/17 20 :15; Start 01/09/17 at 21:00; Stop 01/12/17 at 18:13; Status DC Trazodone HCl (Desyrel) 25 mg PRN QHS PRN PO INSOMNIA, MAY REPEAT X1 Last administered on 01/09/17 21:09; Start 01/09/17 at 19:30; Stop 01/20/17 at 19:06 ; Status DC Quetiapine Fumarate (SEROquel) 25 mg QHS PO Last administered on 01/15/17 19: 01; Start 01/12/17 at 21:00; Stop 01/16/17 at 19:43; Status DC Escitalopram Oxalate (Lexapro) 5 mg DAILY PO Last administered on 01/15/17 07: 46; Start 01/13/17 at 09:00; Stop 01/17/17 at 16:25; Status DC Mirtazapine (Remeron) 7.5 mg QHS PO Last administered on 01/19/17 19:54; Start 01/13/17 at 21:00; Stop 01/20/17 at 19:06; Status DC Quetiapine Fumarate (SEROquel) 50 mg QHS PO Last administered on 01/16/17 20: 26; Start 01/16/17 at 21:00; Stop 01/17/17 at 19:36; Status DC Escitalopram Oxalate (Lexapro) 10 mg QHS PO ; Start 01/18/17 at 21:00; Stop at 21:00; Status DC Escitalopram Oxalate (Lexapro) 10 mg DAILY PO ; Start 01/18/17 at 09:00; Status Cancel Escitalopram Oxalate (Lexapro) 10 mg DAILY PO Last administered on 01/28/17 08 :10; Start 01/18/17 at 09:00 Risperidone (Risperdal) 0.25 mg HS PO Last administered on 01/18/17 19:20; Start 01/17/17 at 21:00; Stop 01/19/17 at 17:54; Status DC Risperidone (Risperdal) 0.5 mg HS PO Last administered on 01/28/17 19:39; Start 01/19/17 at 21:00 Mirtazapine (Remeron) 15 mg QHS PO Last administered on 01/28/17 19:38; Start 01/20/17 at 21:00 Trazodone HCl (Desyrel) 50 mg PRN QHS PRN PO INSOMNIA, JANUARY REPEAT X1; Start 01/20/17 at 19:15 Vitamin D (Vitamin D3) 2,000 unit BIDACLD PO Last administered on 01/28/17 16: 10; Start 01/22/17 at 16:30 Cyanocobalamin (Vitamin B-12) 1,000 mcg [id number] IM Last administered on 14:35; Start 01/22/17 at 14:00 Active Scripts Active Reported Aricept (Donepezil Hcl) 10 Mg Tablet 10 Mg PO QHS Metoprolol Tartrate 50 Mg Tablet 50 Mg PO BID JIMBO MARLEY MD January 28, 2017 21:01
--- NOTE | 2017-01-28 23:55 | NUR ---
Behavior Intervention Response and Plan: BIRP Note: Behavior: Assumed Care of patient, patient located in Day Room at shift change. Patient exhibited the following behavior Calm, Compliant, Cooperative. Brief assessment on rounds of vital signs, medication needs, lab studies, and pain. Treatment plan problems Dementia with BD and Fall Risk. Intervention: Patient assessed and the following interventions initiated safety checks 15 Minute Checks Cognitive Assessment , Head to toe Assessment , Medications. Response: After interactions and interventions patient responded in the following manner, Calm , Compliant ,Cooperative. Continue to assess behaviors and condition will continue to monitor throughout the shift as needed. 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 Continue to assess patient for changes in above assessment. Monitor for medication needs, pain, and safety concerns. Hourly rounding performed to ensure safe environment.
[2017-01-29 06:37] VITALS: BP 127/67
[2017-01-29] MEDS: METOPROLOL TART IMMED RELEASE 50 MG TABLET PO SCH ×2 (07:16→19:45)
[2017-01-29] MEDS: ESCITALOPRAM 5 MG/5 ML PO SCH (07:18)
--- NOTE | 2017-01-29 10:00 | NUR ---
THERAPEUTIC RECREATION GROUP NOTE TITLE :Characteristics of a M-O-[id number]-H-[id number] ACTIVITY : Cognitive Stimulation GOAL : Stimulate memory, Increase problem solving DURATION : 45 minutes RESPONSE : No participation.
[2017-01-29] MEDS: CHOLECALCIFEROL (VITAMIN D3) 1,000 UNIT TABLET PO SCH ×2 (11:23→16:01)
--- NOTE | 2017-01-29 11:30 | NUR ---
THERAPEUTIC RECREATION GROUP NOTE TITLE :Movement to Music: Flexibility ACTIVITY : Movement/ Exercise GOAL : Increase morale, attention, flexibility. Decrease stress/anxiety. DURATION : 25 minutes RESPONSE : No participation.
--- NOTE | 2017-01-29 14:45 | NUR ---
THERAPEUTIC RECREATION GROUP NOTE TITLE :Mother's Day Jeopardy ACTIVITY : Cognitive Stimulation GOAL : Stimulate memory, Increase problem solving DURATION : 45 minutes RESPONSE : No participation.
[2017-01-29 15:32] VITALS: BP 107/65
--- NOTE | 2017-01-29 18:08 | NUR ---
Behavior Intervention Response and Plan: BIRP Note: Behavior: Assumed Care of patient, patient located in Patient Room at shift change. Patient exhibited the following behavior Disorganized, Irritable, Defensive. Brief assessment on rounds of vital signs, medication needs, lab studies, and pain. Treatment plan problems 1 and 2. Intervention: Patient assessed and the following interventions initiated safety checks 15 Minute Checks Head to toe Assessment , Medications , Nutrition. Response: After interactions and interventions patient responded in the following manner, Resistive , Anxious ,Delusions. Continue to assess behaviors and condition will continue to monitor throughout the shift as needed. 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 Continue to assess patient for changes in above assessment. Monitor for medication needs, pain, and safety concerns. Hourly rounding performed to ensure safe environment.
[2017-01-29] MEDS: ATORVASTATIN CALCIUM 20 MG TABLET PO SCH (19:44)
[2017-01-29] MEDS: DONEPEZIL HCL 10 MG TABLET PO SCH (19:44)
[2017-01-29] MEDS: MIRTAZAPINE 15 MG TABLET PO SCH (19:45)
[2017-01-29] MEDS: risperiDONE 0.5 MG TABLET. PO SCH (19:45)
--- NOTE | 2017-01-29 21:02 | PDOC ---
Exam Fabian Demential Exam: Fabian Note: Please also refer to the separate dictated note~for this date of service dictated separately.~Patient seen individually. Discussed the patient with Nursing staff reviewed the chart.~Reviewed interim history and current functioning. Reviewed vital signs,~Labs/ Radiology~and current medications noted below. Continue current treatment with the changes noted in the dictated addendum note Assessment: Vital Signs: Vital Signs Date Time Temp Pulse Resp B/P (MAP) Pulse Ox O2 Delivery O2 Flow Rate FiO2 01/29/17 19:45 72 107/65 01/29/17 15:32 98.1 19 97 01/24/17 01:19 Room Air I&O Intake and Output 01/29/17 07:00 Intake Total 830 ml Balance 830 ml Intake Oral 830 ml Current Medications: Meds: Current Medications Donepezil HCl (Aricept) 10 mg QHS PO Last administered on 01/29/17 19:44; Start 01/08/17 at 22:00 Acetaminophen (Tylenol) 650 mg PRN Q6HRS PRN PO PAIN / TEMP Last administered on 01/26/17 06:04; Start 01/08/17 at 21:45 Multi-Ingredient Ointment (Analgesic [place]) 1 shelia PRN QID PRN TP MUSCLE PAIN; Start 01/08/17 at 21:45 Al Hydroxide/Mg Hydroxide (Mylanta Plus Xs) 15 ml PRN AFTMEALHC PRN PO DYSPEPSIA; Start 01/08/17 at 21:45 Magnesium Hydroxide (Milk Of Magnesia) 2,400 mg PRN QHS PRN PO CONSTIPATION; Start 01/08/17 at 21:45 Olanzapine (Zyprexa Zydis) 2.5 mg PRN Q2HR PRN PO ANXIETY / AGITATION Last administered on 01/23/17 15:28; Start 01/08/17 at 22:45; Stop 01/23/17 at 21:41; Status DC Metoprolol Tartrate (Lopressor) 50 mg BID PO Last administered on 01/29/17 19: 45; Start 01/09/17 at 09:00 Atorvastatin Calcium (Lipitor) 20 mg QHS PO Last administered on 01/29/17 19: 44; Start 01/09/17 at 21:00 Quetiapine Fumarate (SEROquel) 12.5 mg QHS PO Last administered on 01/11/17 20 :15; Start 01/09/17 at 21:00; Stop 01/12/17 at 18:13; Status DC Trazodone HCl (Desyrel) 25 mg PRN QHS PRN PO INSOMNIA, MAY REPEAT X1 Last administered on 01/09/17 21:09; Start 01/09/17 at 19:30; Stop 01/20/17 at 19:06 ; Status DC Quetiapine Fumarate (SEROquel) 25 mg QHS PO Last administered on 01/15/17 19: 01; Start 01/12/17 at 21:00; Stop 01/16/17 at 19:43; Status DC Escitalopram Oxalate (Lexapro) 5 mg DAILY PO Last administered on 01/15/17 07: 46; Start 01/13/17 at 09:00; Stop 01/17/17 at 16:25; Status DC Mirtazapine (Remeron) 7.5 mg QHS PO Last administered on 01/19/17 19:54; Start 01/13/17 at 21:00; Stop 01/20/17 at 19:06; Status DC Quetiapine Fumarate (SEROquel) 50 mg QHS PO Last administered on 01/16/17 20: 26; Start 01/16/17 at 21:00; Stop 01/17/17 at 19:36; Status DC Escitalopram Oxalate (Lexapro) 10 mg QHS PO ; Start 01/18/17 at 21:00; Stop at 21:00; Status DC Escitalopram Oxalate (Lexapro) 10 mg DAILY PO ; Start 01/18/17 at 09:00; Status Cancel Escitalopram Oxalate (Lexapro) 10 mg DAILY PO Last administered on 01/29/17 07 :18; Start 01/18/17 at 09:00 Risperidone (Risperdal) 0.25 mg HS PO Last administered on 01/18/17 19:20; Start 01/17/17 at 21:00; Stop 01/19/17 at 17:54; Status DC Risperidone (Risperdal) 0.5 mg HS PO Last administered on 01/29/17 19:45; Start 01/19/17 at 21:00 Mirtazapine (Remeron) 15 mg QHS PO Last administered on 01/29/17 19:45; Start 01/20/17 at 21:00 Trazodone HCl (Desyrel) 50 mg PRN QHS PRN PO INSOMNIA, JANUARY REPEAT X1; Start 01/20/17 at 19:15 Vitamin D (Vitamin D3) 2,000 unit BIDACLD PO Last administered on 01/29/17 16: 01; Start 01/22/17 at 16:30 Cyanocobalamin (Vitamin B-12) 1,000 mcg [id number] IM Last administered on 14:35; Start 01/22/17 at 14:00 Active Scripts Active Reported Aricept (Donepezil Hcl) 10 Mg Tablet 10 Mg PO QHS Metoprolol Tartrate 50 Mg Tablet 50 Mg PO BID JIMBO MARLEY MD January 29, 2017 21:02
--- NOTE | 2017-01-29 22:03 | NUR ---
Behavior Intervention Response and Plan: BIRP Note: Behavior: Assumed Care of patient, patient located in Patient Room at shift change. Patient exhibited the following behavior Resting. Brief assessment on rounds of vital signs, medication needs, lab studies, and pain. Treatment plan problems Dementia with BD and Fall Risk. Intervention: Patient assessed and the following interventions initiated safety checks 15 Minute Checks Cognitive Assessment , Head to toe Assessment , Medications. Response: After interactions and interventions patient responded in the following manner, Calm , Compliant, Drowsy. Continue to assess behaviors and condition will continue to monitor throughout the shift as needed. 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 Continue to assess patient for changes in above assessment. Monitor for medication needs, pain, and safety concerns. Hourly rounding performed to ensure safe environment.
[2017-01-30 06:23] VITALS: BP 129/79
[2017-01-30] MEDS: METOPROLOL TART IMMED RELEASE 50 MG TABLET PO SCH ×2 (07:38→21:00)
[2017-01-30] MEDS: ESCITALOPRAM 5 MG/5 ML PO SCH (07:40)
--- NOTE | 2017-01-30 08:07 | PN ---
DATE: 01/27/2017 PSYCHIATRIC PROGRESS NOTE This is late entry of 01/27/2017, covers elements not covered in my initial note. SUBJECTIVE: Overall, the patient remains somewhat withdrawn, but comes out for her meals, was aware of the date and location, but said she was 18 years old, compliant with her medications, confused, short term memory is impaired. REVIEW OF SYSTEMS: No CV, , pulmonary, eye system symptoms on review. MENTAL STATUS EXAMINATION: Oriented to herself. Insight, judgment, recent and remote memory, attention, concentration, fund of knowledge poor, consistent with her diagnosis mentioned in my initial note. PLAN: Continue psychotropics mentioned in my initial note, adjust further as clinically indicated. MAN Brooks MARLEY MD DR: JEAN/filemon JOB#: [id number] / [id number]
--- NOTE | 2017-01-30 08:15 | PN ---
DATE: 01/28/2017 This is a late entry for 01/28/2017, covers elements not covered in my initial note. SUBJECTIVE: The patient was staffed at a treatment team meeting with the entire team and seen individually, sleeping about 6 hours, appetite 60%, coming out for meals, which is an improvement, short term memory is impaired. REVIEW OF SYSTEMS: No CV, , pulmonary, eye system symptoms on review. Reliability poor. MENTAL STATUS EXAM: Oriented to herself. Insight, judgment, recent and remote memory, attention, concentration, fund of knowledge poor, consistent with her diagnosis mentioned in my initial note. PLAN: Continue psychotropics mentioned in my initial note for now. MAN Brooks MARLEY MD DR: JEAN/filemon JOB#: [id number] / [id number]
[2017-01-30] MEDS: CHOLECALCIFEROL (VITAMIN D3) 1,000 UNIT TABLET PO SCH ×2 (11:40→15:53)
--- NOTE | 2017-01-30 11:40 | NUR ---
Behavior Intervention Response and Plan: BIRP Note: Behavior: Assumed Care of patient, patient located in Patient Room at shift change. Patient exhibited the following behavior Disorganized, Withdrawn, Compliant. Brief assessment on rounds of vital signs, medication needs, lab studies, and pain. Treatment plan problems 1 and 2. Intervention: Patient assessed and the following interventions initiated safety checks 15 Minute Checks Head to toe Assessment , Cognitive Assessment , Medications. Response: After interactions and interventions patient responded in the following manner, Delusions , Resistive ,Drowsy. Continue to assess behaviors and condition will continue to monitor throughout the shift as needed. 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 Continue to assess patient for changes in above assessment. Monitor for medication needs, pain, and safety concerns. Hourly rounding performed to ensure safe environment.
--- NOTE | 2017-01-30 14:18 | NUR ---
Pt is out in the dayroom, listening to music and dancing, with positive interaction and smiling.
[2017-01-30 16:01] VITALS: BP 113/60
[2017-01-30] MEDS: MIRTAZAPINE 15 MG TABLET PO SCH (20:40)
[2017-01-30] MEDS: risperiDONE 0.5 MG TABLET. PO SCH (20:40)
[2017-01-30] MEDS: DONEPEZIL HCL 10 MG TABLET PO SCH (20:40)
[2017-01-30] MEDS: ATORVASTATIN CALCIUM 20 MG TABLET PO SCH (20:40)
--- NOTE | 2017-01-30 20:49 | PDOC ---
Exam Fabian Demential Exam: Fabian Note: Please also refer to the separate dictated note~for this date of service dictated separately.~Patient seen individually. Discussed the patient with Nursing staff reviewed the chart.~Reviewed interim history and current functioning. Reviewed vital signs,~Labs/ Radiology~and current medications noted below. Continue current treatment with the changes noted in the dictated addendum note Assessment: Vital Signs: Vital Signs Date Time Temp Pulse Resp B/P (MAP) Pulse Ox O2 Delivery O2 Flow Rate FiO2 01/30/17 16:01 97.0 83 16 113/60 (77) 95 I&O Intake and Output 01/30/17 07:00 Intake Total 1440 ml Balance 1440 ml Intake Oral 1440 ml Current Medications: Meds: Current Medications Donepezil HCl (Aricept) 10 mg QHS PO Last administered on 01/30/17 20:40; Start 01/08/17 at 22:00 Acetaminophen (Tylenol) 650 mg PRN Q6HRS PRN PO PAIN / TEMP Last administered on 01/26/17 06:04; Start 01/08/17 at 21:45 Multi-Ingredient Ointment (Analgesic [place]) 1 shelia PRN QID PRN TP MUSCLE PAIN; Start 01/08/17 at 21:45 Al Hydroxide/Mg Hydroxide (Mylanta Plus Xs) 15 ml PRN AFTMEALHC PRN PO DYSPEPSIA; Start 01/08/17 at 21:45 Magnesium Hydroxide (Milk Of Magnesia) 2,400 mg PRN QHS PRN PO CONSTIPATION; Start 01/08/17 at 21:45 Olanzapine (Zyprexa Zydis) 2.5 mg PRN Q2HR PRN PO ANXIETY / AGITATION Last administered on 01/23/17 15:28; Start 01/08/17 at 22:45; Stop 01/23/17 at 21:41; Status DC Metoprolol Tartrate (Lopressor) 50 mg BID PO Last administered on 01/30/17 07: 38; Start 01/09/17 at 09:00 Atorvastatin Calcium (Lipitor) 20 mg QHS PO Last administered on 01/30/17 20: 40; Start 01/09/17 at 21:00 Quetiapine Fumarate (SEROquel) 12.5 mg QHS PO Last administered on 01/11/17 20 :15; Start 01/09/17 at 21:00; Stop 01/12/17 at 18:13; Status DC Trazodone HCl (Desyrel) 25 mg PRN QHS PRN PO INSOMNIA, JANUARY REPEAT X1 Last administered on 01/09/17 21:09; Start 01/09/17 at 19:30; Stop 01/20/17 at 19:06 ; Status DC Quetiapine Fumarate (SEROquel) 25 mg QHS PO Last administered on 01/15/17 19: 01; Start 01/12/17 at 21:00; Stop 01/16/17 at 19:43; Status DC Escitalopram Oxalate (Lexapro) 5 mg DAILY PO Last administered on 01/15/17 07: 46; Start 01/13/17 at 09:00; Stop 01/17/17 at 16:25; Status DC Mirtazapine (Remeron) 7.5 mg QHS PO Last administered on 01/19/17 19:54; Start 01/13/17 at 21:00; Stop 01/20/17 at 19:06; Status DC Quetiapine Fumarate (SEROquel) 50 mg QHS PO Last administered on 01/16/17 20: 26; Start 01/16/17 at 21:00; Stop 01/17/17 at 19:36; Status DC Escitalopram Oxalate (Lexapro) 10 mg QHS PO ; Start 01/18/17 at 21:00; Stop at 21:00; Status DC Escitalopram Oxalate (Lexapro) 10 mg DAILY PO ; Start 01/18/17 at 09:00; Status Cancel Escitalopram Oxalate (Lexapro) 10 mg DAILY PO Last administered on 01/30/17 07 :40; Start 01/18/17 at 09:00 Risperidone (Risperdal) 0.25 mg HS PO Last administered on 01/18/17 19:20; Start 01/17/17 at 21:00; Stop 01/19/17 at 17:54; Status DC Risperidone (Risperdal) 0.5 mg HS PO Last administered on 01/30/17 20:40; Start 01/19/17 at 21:00 Mirtazapine (Remeron) 15 mg QHS PO Last administered on 01/30/17 20:40; Start 01/20/17 at 21:00 Trazodone HCl (Desyrel) 50 mg PRN QHS PRN PO INSOMNIA, JANUARY REPEAT X1; Start 01/20/17 at 19:15 Vitamin D (Vitamin D3) 2,000 unit BIDACLD PO Last administered on 01/30/17 15: 53; Start 01/22/17 at 16:30 Cyanocobalamin (Vitamin B-12) 1,000 mcg [id number] IM Last administered on 14:35; Start 01/22/17 at 14:00 Active Scripts Active Reported Aricept (Donepezil Hcl) 10 Mg Tablet 10 Mg PO QHS Metoprolol Tartrate 50 Mg Tablet 50 Mg PO BID Diagnosis: Problems: (1) Dementia with behavioral disturbance (2) Anxiety disorder (3) Dementia in Alzheimer's disease with delusions (4) Dementia in Alzheimer's disease with depression (5) Dementia, vascular, with delusions (6) Dementia, vascular, with depression (7) Impulse control disorder JIMBO MARLEY MD January 30, 2017 20:48
--- NOTE | 2017-01-31 01:53 | PN ---
DATE: 01/29/2017 PSYCHIATRIC PROGRESS NOTE This is a late entry of 01/29/2017, covers elements not covered in my initial note. SUBJECTIVE: The patient slept 3-1/4 hours previous night and somewhat delusional, talking about going home. REVIEW OF SYSTEMS: No CV, , pulmonary, eye, ENT system symptoms on review. Reliability poor. MENTAL STATUS EXAM: Oriented to herself this. Insight, judgment, recent and remote memory, attention, concentration, fund of knowledge poor, consistent with her diagnosis as mentioned in my initial note. PLAN: Continue current psychotropics, may need to increase trazodone if she does not sleep again next night. MAN Brooks MARLEY MD DR: JEAN/filemon JOB#: [id number] / [id number]
--- NOTE | 2017-01-31 02:05 | NUR ---
Behavior Intervention Response and Plan: BIRP Note: Behavior: Assumed Care of patient, patient located in Patient Room at shift change. Patient exhibited the following behavior Cooperative, Sleeping, Calm. Brief assessment on rounds of vital signs, medication needs, lab studies, and pain. Treatment plan problems . Intervention: Patient assessed and the following interventions initiated safety checks 15 Minute Checks Call andrade in reach , Medications , Personal Alarm in place. Response: After interactions and interventions patient responded in the following manner, Calm , Sleeping ,Cooperative. Continue to assess behaviors and condition will continue to monitor throughout the shift as needed. 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 Continue to assess patient for changes in above assessment. Monitor for medication needs, pain, and safety concerns. Hourly rounding performed to ensure safe environment.
[2017-01-31 06:31] VITALS: BP 110/69
[2017-01-31] MEDS: METOPROLOL TART IMMED RELEASE 50 MG TABLET PO SCH ×2 (09:26→21:00)
[2017-01-31] MEDS: ESCITALOPRAM 5 MG/5 ML PO SCH (09:27)
--- NOTE | 2017-01-31 09:50 | NUR ---
Behavior Intervention Response and Plan: BIRP Note: Behavior: Assumed Care of patient, patient located in Patient Room at shift change. Patient exhibited the following behavior Calm, Disorganized, Hallucinating. Brief assessment on rounds of vital signs, medication needs, lab studies, and pain. Treatment plan problems 1 & 2. Intervention: Patient assessed and the following interventions initiated safety checks 15 Minute Checks Cognitive Assessment , Head to toe Assessment , Medications. Response: After interactions and interventions patient responded in the following manner, Calm , Appropriate ,Cooperative. Continue to assess behaviors and condition will continue to monitor throughout the shift as needed. 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 Continue to assess patient for changes in above assessment. Monitor for medication needs, pain, and safety concerns. Hourly rounding performed to ensure safe environment.
[2017-01-31 09:56] LABS: BASO % 1 % (0-3); EOS # 0.2 x10^3/uL (0.0-0.7); EOS % 3 % (0-3); HEMATOCRIT 39.9 % (36.0-47.0); HEMOGLOBIN 13.5 g/dL (12.0-15.5); LYMPH # 1.3 x10^3/uL (1.0-4.8); LYMPH % 19 % (24-48); MEAN CORPUSCULAR HEMOGLOBIN 33 pg (25-35); MEAN CORPUSCULAR HGB CONC 34 g/dL (31-37); MEAN CORPUSCULAR VOLUME 99 fL (79-100); MONO # 0.4 x10^3/uL (0.0-1.1); MONO % 5 % (0-9); NEUT # 4.8 x10^3uL (1.8-7.7); NEUT % 72 % (31-73); PLATELET COUNT 195 x10^3/uL (140-400); RED BLOOD COUNT 4.05 x10^6/uL (3.50-5.40); RED CELL DISTRIBUTION WIDTH 14.4 % (11.5-14.5); WHITE BLOOD COUNT 6.7 x10^3/uL (4.0-11.0)
[2017-01-31 10:15] LABS: ALBUMIN 3.1 g/dL (3.4-5.0); ALBUMIN/GLOBULIN RATIO 0.8 (1.0-1.7); CALCIUM 9.6 mg/dL (8.5-10.1); CREATININE 1.1 mg/dL (0.6-1.0); GFR 48.2; POTASSIUM 3.8 mmol/L (3.5-5.1); TOTAL BILIRUBIN 0.3 mg/dL (0.2-1.0); TOTAL PROTEIN 7.1 g/dL (6.4-8.2)
[2017-01-31] MEDS: CHOLECALCIFEROL (VITAMIN D3) 1,000 UNIT TABLET PO SCH ×2 (13:48→17:14)
[2017-01-31 16:18] VITALS: BP 131/58
--- NOTE | 2017-01-31 20:09 | PDOC ---
Exam Fabian Demential Exam: Fabian Note: Please also refer to the separate dictated note~for this date of service dictated separately.~Patient seen individually. Discussed the patient with Nursing staff reviewed the chart.~Reviewed interim history and current functioning. Reviewed vital signs,~Labs/ Radiology~and current medications noted below. Continue current treatment with the changes noted in the dictated addendum note Assessment: Vital Signs: Vital Signs Date Time Temp Pulse Resp B/P (MAP) Pulse Ox O2 Delivery O2 Flow Rate FiO2 01/31/17 16:18 98.0 78 20 131/58 (82) 96 I&O Intake and Output 01/31/17 07:00 Intake Total 1080 ml Balance 1080 ml Intake Oral 1080 ml Labs: Laboratory Tests Test 01/31/17 09:43 White Blood Count 6.7 x10^3/uL (4.0-11.0) Red Blood Count 4.05 x10^6/uL (3.50-5.40) Hemoglobin 13.5 g/dL (12.0-15.5) Hematocrit 39.9 % (36.0-47.0) Mean Corpuscular Volume 99 fL (79-100) Mean Corpuscular Hemoglobin 33 pg (25-35) Mean Corpuscular Hemoglobin Concent 34 g/dL (31-37) Red Cell Distribution Width 14.4 % (11.5-14.5) Platelet Count 195 x10^3/uL (140-400) Neutrophils (%) (Auto) 72 % (31-73) Lymphocytes (%) (Auto) 19 % (24-48) L Monocytes (%) (Auto) 5 % (0-9) Eosinophils (%) (Auto) 3 % (0-3) Basophils (%) (Auto) 1 % (0-3) Neutrophils # (Auto) 4.8 x10^3uL (1.8-7.7) Lymphocytes # (Auto) 1.3 x10^3/uL (1.0-4.8) Monocytes # (Auto) 0.4 x10^3/uL (0.0-1.1) Eosinophils # (Auto) 0.2 x10^3/uL (0.0-0.7) Basophils # (Auto) 0.0 x10^3/uL (0.0-0.2) Sodium Level 140 mmol/L (136-145) Potassium Level 3.8 mmol/L (3.5-5.1) Chloride Level 102 mmol/L (98-107) Carbon Dioxide Level 29 mmol/L (21-32) Anion Gap 9 (6-14) Blood Urea Nitrogen 23 mg/dL (7-20) H Creatinine 1.1 mg/dL (0.6-1.0) H Estimated GFR (Cockcroft-Gault) 48.2 BUN/Creatinine Ratio 21 (6-20) H Glucose Level 232 mg/dL (70-99) H Calcium Level 9.6 mg/dL (8.5-10.1) Total Bilirubin 0.3 mg/dL (0.2-1.0) Aspartate Amino Transferase (AST) 20 U/L (15-37) Alanine Aminotransferase (ALT) 24 U/L (14-59) Alkaline Phosphatase 90 U/L (46-116) Total Protein 7.1 g/dL (6.4-8.2) Albumin 3.1 g/dL (3.4-5.0) L Albumin/Globulin Ratio 0.8 (1.0-1.7) L Current Medications: Meds: Current Medications Donepezil HCl (Aricept) 10 mg QHS PO Last administered on 01/30/17 20:40; Start 01/08/17 at 22:00 Acetaminophen (Tylenol) 650 mg PRN Q6HRS PRN PO PAIN / TEMP Last administered on 01/26/17 06:04; Start 01/08/17 at 21:45 Multi-Ingredient Ointment (Analgesic [place]) 1 shelia PRN QID PRN TP MUSCLE PAIN; Start 01/08/17 at 21:45 Al Hydroxide/Mg Hydroxide (Mylanta Plus Xs) 15 ml PRN AFTMEALHC PRN PO DYSPEPSIA; Start 01/08/17 at 21:45 Magnesium Hydroxide (Milk Of Magnesia) 2,400 mg PRN QHS PRN PO CONSTIPATION; Start 01/08/17 at 21:45 Olanzapine (Zyprexa Zydis) 2.5 mg PRN Q2HR PRN PO ANXIETY / AGITATION Last administered on 01/23/17 15:28; Start 01/08/17 at 22:45; Stop 01/23/17 at 21:41; Status DC Metoprolol Tartrate (Lopressor) 50 mg BID PO Last administered on 01/31/17 09: 26; Start 01/09/17 at 09:00 Atorvastatin Calcium (Lipitor) 20 mg QHS PO Last administered on 01/30/17 20: 40; Start 01/09/17 at 21:00 Quetiapine Fumarate (SEROquel) 12.5 mg QHS PO Last administered on 01/11/17 20 :15; Start 01/09/17 at 21:00; Stop 01/12/17 at 18:13; Status DC Trazodone HCl (Desyrel) 25 mg PRN QHS PRN PO INSOMNIA, JANUARY REPEAT X1 Last administered on 01/09/17 21:09; Start 01/09/17 at 19:30; Stop 01/20/17 at 19:06 ; Status DC Quetiapine Fumarate (SEROquel) 25 mg QHS PO Last administered on 01/15/17 19: 01; Start 01/12/17 at 21:00; Stop 01/16/17 at 19:43; Status DC Escitalopram Oxalate (Lexapro) 5 mg DAILY PO Last administered on 01/15/17 07: 46; Start 01/13/17 at 09:00; Stop 01/17/17 at 16:25; Status DC Mirtazapine (Remeron) 7.5 mg QHS PO Last administered on 01/19/17 19:54; Start 01/13/17 at 21:00; Stop 01/20/17 at 19:06; Status DC Quetiapine Fumarate (SEROquel) 50 mg QHS PO Last administered on 01/16/17 20: 26; Start 01/16/17 at 21:00; Stop 01/17/17 at 19:36; Status DC Escitalopram Oxalate (Lexapro) 10 mg QHS PO ; Start 01/18/17 at 21:00; Stop at 21:00; Status DC Escitalopram Oxalate (Lexapro) 10 mg DAILY PO ; Start 01/18/17 at 09:00; Status Cancel Escitalopram Oxalate (Lexapro) 10 mg DAILY PO Last administered on 01/31/17 09 :27; Start 01/18/17 at 09:00 Risperidone (Risperdal) 0.25 mg HS PO Last administered on 01/18/17 19:20; Start 01/17/17 at 21:00; Stop 01/19/17 at 17:54; Status DC Risperidone (Risperdal) 0.5 mg HS PO Last administered on 01/30/17 20:40; Start 01/19/17 at 21:00 Mirtazapine (Remeron) 15 mg QHS PO Last administered on 01/30/17 20:40; Start 01/20/17 at 21:00 Trazodone HCl (Desyrel) 50 mg PRN QHS PRN PO INSOMNIA, JANUARY REPEAT X1; Start 01/20/17 at 19:15 Vitamin D (Vitamin D3) 2,000 unit BIDACLD PO Last administered on 01/31/17 17: 14; Start 01/22/17 at 16:30 Cyanocobalamin (Vitamin B-12) 1,000 mcg [id number] IM Last administered on 14:35; Start 01/22/17 at 14:00 Active Scripts Active Reported Aricept (Donepezil Hcl) 10 Mg Tablet 10 Mg PO QHS Metoprolol Tartrate 50 Mg Tablet 50 Mg PO BID JIMBO MARLEY MD January 31, 2017 20:09
[2017-01-31] MEDS: risperiDONE 0.5 MG TABLET. PO SCH (21:08)
[2017-01-31] MEDS: ATORVASTATIN CALCIUM 20 MG TABLET PO SCH (21:08)
[2017-01-31] MEDS: MIRTAZAPINE 15 MG TABLET PO SCH (21:08)
[2017-01-31] MEDS: DONEPEZIL HCL 10 MG TABLET PO SCH (21:08)
[2017-02-01 06:34] VITALS: BP 125/73
[2017-02-01] MEDS: METOPROLOL TART IMMED RELEASE 50 MG TABLET PO SCH ×3 (09:00→20:12)
[2017-02-01] MEDS: ESCITALOPRAM 5 MG/5 ML PO SCH (09:24)
--- NOTE | 2017-02-01 09:40 | NUR ---
Behavior Intervention Response and Plan: BIRP Note: Behavior: Assumed Care of patient, patient located in Patient Room at shift change. Patient exhibited the following behavior Non Compliant with Meds, Disorganized, Hallucinating. Brief assessment on rounds of vital signs, medication needs, lab studies, and pain. Treatment plan problems 1 & 2. Intervention: Patient assessed and the following interventions initiated safety checks 15 Minute Checks Cognitive Assessment , Head to toe Assessment , Medications. Response: After interactions and interventions patient responded in the following manner, Calm , Appropriate ,Compliant. Continue to assess behaviors and condition will continue to monitor throughout the shift as needed. 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 Continue to assess patient for changes in above assessment. Monitor for medication needs, pain, and safety concerns. Hourly rounding performed to ensure safe environment.
[2017-02-01] MEDS: CHOLECALCIFEROL (VITAMIN D3) 1,000 UNIT TABLET PO SCH ×2 (11:30→16:53)
[2017-02-01 16:11] VITALS: BP 130/62
[2017-02-01] MEDS: ATORVASTATIN CALCIUM 20 MG TABLET PO SCH (20:11)
[2017-02-01] MEDS: DONEPEZIL HCL 10 MG TABLET PO SCH (20:11)
[2017-02-01] MEDS: MIRTAZAPINE 15 MG TABLET PO SCH (20:11)
[2017-02-01] MEDS: risperiDONE 0.5 MG TABLET. PO SCH (20:11)
--- NOTE | 2017-02-01 21:05 | PDOC ---
Exam Fabian Demential Exam: Fabian Note: Please also refer to the separate dictated note~for this date of service dictated separately.~Patient seen individually. Discussed the patient with Nursing staff reviewed the chart.~Reviewed interim history and current functioning. Reviewed vital signs,~Labs/ Radiology~and current medications noted below. Continue current treatment with the changes noted in the dictated addendum note Assessment: Vital Signs: Vital Signs Date Time Temp Pulse Resp B/P (MAP) Pulse Ox O2 Delivery O2 Flow Rate FiO2 02/01/17 20:12 95 130/62 02/01/17 16:11 97.9 16 96 Room Air I&O Intake and Output 02/01/17 07:00 Intake Total 1280 ml Balance 1280 ml Intake Oral 1280 ml Current Medications: Meds: Current Medications Donepezil HCl (Aricept) 10 mg QHS PO Last administered on 02/01/17 20:11; Start 01/08/17 at 22:00 Acetaminophen (Tylenol) 650 mg PRN Q6HRS PRN PO PAIN / TEMP Last administered on 01/26/17 06:04; Start 01/08/17 at 21:45 Multi-Ingredient Ointment (Analgesic [place]) 1 shelia PRN QID PRN TP MUSCLE PAIN; Start 01/08/17 at 21:45 Al Hydroxide/Mg Hydroxide (Mylanta Plus Xs) 15 ml PRN AFTMEALHC PRN PO DYSPEPSIA; Start 01/08/17 at 21:45 Magnesium Hydroxide (Milk Of Magnesia) 2,400 mg PRN QHS PRN PO CONSTIPATION; Start 01/08/17 at 21:45 Olanzapine (Zyprexa Zydis) 2.5 mg PRN Q2HR PRN PO ANXIETY / AGITATION Last administered on 01/23/17 15:28; Start 01/08/17 at 22:45; Stop 01/23/17 at 21:41; Status DC Metoprolol Tartrate (Lopressor) 50 mg BID PO Last administered on 02/01/17 20: 12; Start 01/09/17 at 09:00 Atorvastatin Calcium (Lipitor) 20 mg QHS PO Last administered on 02/01/17 20: 11; Start 01/09/17 at 21:00 Quetiapine Fumarate (SEROquel) 12.5 mg QHS PO Last administered on 01/11/17 20 :15; Start 01/09/17 at 21:00; Stop 01/12/17 at 18:13; Status DC Trazodone HCl (Desyrel) 25 mg PRN QHS PRN PO INSOMNIA, MAY REPEAT X1 Last administered on 01/09/17 21:09; Start 01/09/17 at 19:30; Stop 01/20/17 at 19:06 ; Status DC Quetiapine Fumarate (SEROquel) 25 mg QHS PO Last administered on 01/15/17 19: 01; Start 01/12/17 at 21:00; Stop 01/16/17 at 19:43; Status DC Escitalopram Oxalate (Lexapro) 5 mg DAILY PO Last administered on 01/15/17 07: 46; Start 01/13/17 at 09:00; Stop 01/17/17 at 16:25; Status DC Mirtazapine (Remeron) 7.5 mg QHS PO Last administered on 01/19/17 19:54; Start 01/13/17 at 21:00; Stop 01/20/17 at 19:06; Status DC Quetiapine Fumarate (SEROquel) 50 mg QHS PO Last administered on 01/16/17 20: 26; Start 01/16/17 at 21:00; Stop 01/17/17 at 19:36; Status DC Escitalopram Oxalate (Lexapro) 10 mg QHS PO ; Start 01/18/17 at 21:00; Stop at 21:00; Status DC Escitalopram Oxalate (Lexapro) 10 mg DAILY PO ; Start 01/18/17 at 09:00; Status Cancel Escitalopram Oxalate (Lexapro) 10 mg DAILY PO Last administered on 02/01/17 09 :24; Start 01/18/17 at 09:00 Risperidone (Risperdal) 0.25 mg HS PO Last administered on 01/18/17 19:20; Start 01/17/17 at 21:00; Stop 01/19/17 at 17:54; Status DC Risperidone (Risperdal) 0.5 mg HS PO Last administered on 02/01/17 20:11; Start 01/19/17 at 21:00 Mirtazapine (Remeron) 15 mg QHS PO Last administered on 02/01/17 20:11; Start 01/20/17 at 21:00 Trazodone HCl (Desyrel) 50 mg PRN QHS PRN PO INSOMNIA, JANUARY REPEAT X1; Start 01/20/17 at 19:15 Vitamin D (Vitamin D3) 2,000 unit BIDACLD PO Last administered on 02/01/17 16: 53; Start 01/22/17 at 16:30 Cyanocobalamin (Vitamin B-12) 1,000 mcg [id number] IM Last administered on 14:35; Start 01/22/17 at 14:00 Active Scripts Active Reported Aricept (Donepezil Hcl) 10 Mg Tablet 10 Mg PO QHS Metoprolol Tartrate 50 Mg Tablet 50 Mg PO BID JIMBO MARLEY MD February 01, 2017 21:05
--- NOTE | 2017-02-01 23:27 | NUR ---
Behavior Intervention Response and Plan: BIRP Note: Behavior: Assumed Care of patient, patient located in Day Room at shift change. Patient exhibited the following behavior Wandering, Disorganized, Irritable. Brief assessment on rounds of vital signs, medication needs, lab studies, and pain. Treatment plan problems 1 and 2. Intervention: Patient assessed and the following interventions initiated safety checks 15 Minute Checks Cognitive Assessment , Head to toe Assessment , Medications. Response: After interactions and interventions patient responded in the following manner, Calm , Compliant ,Cooperative. Continue to assess behaviors and condition will continue to monitor throughout the shift as needed. 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 Continue to assess patient for changes in above assessment. Monitor for medication needs, pain, and safety concerns. Hourly rounding performed to ensure safe environment.
--- NOTE | 2017-02-02 01:07 | PN ---
DATE: 01/30/2017 PSYCHIATRIC PROGRESS NOTE This is late entry of 01/30/2017, covers elements not covered in my initial note. SUBJECTIVE: The patient remains somewhat withdrawn, delusional, talking and replying back as if Dr. Razo was responding to what she was saying, noncompliant with meds, at times up dancing, singing, very happy for music therapy. REVIEW OF SYSTEMS: No CV, , pulmonary, eye system symptoms on review as I met with her in her room. Reliability poor. MENTAL STATUS EXAMINATION: Oriented to herself. Insight, judgment, recent and remote memory, attention, concentration, fund of knowledge poor, consistent with her diagnosis mentioned in my initial note. PLAN: Continue current psychotropics, adjust as clinically indicated. MAN Brooks MARLEY MD DR: JEAN/filemon JOB#: [id number] / [id number]
--- NOTE | 2017-02-02 01:14 | PN ---
DATE: 01/31/2017 PSYCHIATRIC PROGRESS NOTE This is late entry of 01/31/2017, covers elements not covered in my initial note. SUBJECTIVE: The patient is sleeping well at night, up in the evening, otherwise, spends much time in her room, compliant with medications, again talking back to herself the previous night but not during the day on 01/31/2017. REVIEW OF SYSTEMS: No CV, , pulmonary, eye system symptoms on review. MENTAL STATUS EXAMINATION: Oriented to herself. Insight, judgment, recent and remote memory, attention, concentration, fund of knowledge poor, consistent with her diagnosis mentioned in my initial note. IMPRESSION: Unchanged from initial note. PLAN: Continue current psychotropics, adjust as clinically indicated. MAN Brooks MARLEY MD DR: JEAN/filemon JOB#: [id number] / [id number]
[2017-02-02] MEDS ORDERED: ACET325T21 PO (03:05)
[2017-02-02] MEDS ORDERED: ATOR20TA58 PO (03:06)
[2017-02-02] MEDS ORDERED: CYAN10002 IM (03:07)
[2017-02-02] MEDS ORDERED: CHOL10003 PO (03:07)
[2017-02-02] MEDS ORDERED: MAG355OR87 PO (03:08)
[2017-02-02] MEDS ORDERED: MAGN2400 PO (03:09)
[2017-02-02] MEDS ORDERED: METH29OI TP (03:10)
[2017-02-02] MEDS ORDERED: MIRT15TA3 PO (03:12)
[2017-02-02] MEDS ORDERED: ESCI10TA PO (03:12)
[2017-02-02] MEDS ORDERED: TRAZ50TA15 PO (03:13)
[2017-02-02] MEDS ORDERED: RISP0.5T3 PO (03:13)
[2017-02-02 05:58] VITALS: BP 104/59
--- NOTE | 2017-02-02 07:53 | NUR ---
[facility] Social Work Discharge Planning Form Patient Name ANTHONY ALANIZ Admit Date: 01/08/17 DISCHARGE PLAN Discharge Destination: new to [facility] Transportation: jace Vargas, to pickling operator 02/02/17 at 10:00 DISCHARGE TO FACILITY Facility: [facility] Address: [facility] [address], [place] [address] Contact Name: PCP: at facility w/in 10-12 days of dc Psychiatrist: at facility w/in 10-12 days of dc
[2017-02-02 08:05] VITALS: BP 104/59
[2017-02-02] MEDS: METOPROLOL TART IMMED RELEASE 50 MG TABLET PO SCH (08:05)
[2017-02-02] MEDS: ESCITALOPRAM 5 MG/5 ML PO SCH (08:05)
--- NOTE | 2017-02-02 08:50 | NUR ---
Behavior Intervention Response and Plan: BIRP Note: Behavior: Assumed Care of patient, patient located in Patient Room at shift change. Patient exhibited the following behavior Calm, Disorganized, Compliant. Brief assessment on rounds of vital signs, medication needs, lab studies, and pain. Treatment plan problems 1 & 2. Intervention: Patient assessed and the following interventions initiated safety checks 15 Minute Checks Cognitive Assessment , Head to toe Assessment , Medications. Response: After interactions and interventions patient responded in the following manner, Calm , Appropriate ,Cooperative. Continue to assess behaviors and condition will continue to monitor throughout the shift as needed. Plan: Continue to monitor Master Treatment Plan for patient's progress toward short term goals of Decreased Agitation, Medication Compliance, longterm goals to return to previous living setting vs placement. Continue to assess patient for changes in above assessment. Monitor for medication needs, pain, and safety concerns. Hourly rounding performed to ensure safe environment.
--- NOTE | 2017-02-02 09:55 | NUR ---
Discharge Note [facility] Patient is not currently a tobacco user. Follow up Appointment made: February 02, 2017 instructions and Social Work Discharge planning sheet sent to next level of care. [facility] contact Number for 24 hour support [phone] Discharge Packet Sent, and discusssed with patient and caregiver that includes Copies from the record of current medications with indications and frequencies, history and physical, Psychiatric Eval with reason and justification for admission, Lab values, Radiology results , follow up instructions for continuation of care, and Social Work discharge planning form: Yes Discharge Packet Faxed to Provider/Next Level of Care: [facility] Discharge Packet Faxed with discharge Order and Discharge diagnosis sent to: [facility] Discharge Packet Discussed, and report Given to: Keshia at [facility] Discharge instruction sheet and labs were included in the packet and sent with the patient upon discharge. Any Pending lab results can be obtained by calling [phone] Discharge Summary will be sent to next care provider when available. This includes the reason for admission, DC diagnosis, and next level of care recommendations.
--- NOTE | 2017-02-03 01:03 | PN ---
DATE: 02/01/2017 PSYCHIATRIC PROGRESS NOTE This is late entry of 02/01/2017, covers elements not covered in my initial note. SUBJECTIVE: The patient refused her morning medications. She told the nursing staff Oliver told her not to take her medications. Metoprolol was held for low blood pressure, took Lexapro at lunch. No hallucinations noted. REVIEW OF SYSTEMS: No CV, , pulmonary, eye system symptoms on review. MENTAL STATUS EXAMINATION: Oriented to herself and situation. Speech coherent, very pleasant as I met with her in her room. Abstraction fair, computation impaired, language function intact. Memory is impaired. Mood and affect is improved. DIAGNOSIS: Unchanged from initial note. PLAN: Continue current psychotropics. JIMBO MARLEY MD DR: JEAN/filemon JOB#: [id number] / [id number]
--- NOTE | 2017-02-03 17:58 | DS ---
DATE OF DISCHARGE: 02/02/2017 DISCHARGE SUMMARY/PSYCHIATRIC PROGRESS NOTE This is a late entry of 02/02/2017 covers elements not covered in my initial note. REASON FOR ADMISSION: Please refer to the admission history for details. Briefly, the patient is a 77-year-old female referred to us from the Emergency Room at [facility] where she presented from home after she was having active hallucinations, having three way conversations with different people who were not there increasingly agitated, confused, wandering away from home. She had failed outpatient psychiatric interventions. SIGNIFICANT FINDINGS AND CLINICAL COURSE: Following admission, the patient was seen daily individually by myself, followed medically per Dr. Loco/Dr. Lehman. She remained confused continued to have active hallucinations, talking to people and responding and response to who she heard back. She refused to come out of her room for meals and all of this gradually improved with the psychotropics were adjusted. She seemed to respond to a combination of Aricept 10 mg a day, trazodone 50 at bedtime p.r.n., january repeat x 1, Lexapro 10 mg a day, Remeron 15 at bedtime, Risperdal 0.5 mg at bedtime. Prior to discharge on 02/02/2017 temperature 97.1, BP 104/59, pulse 73, respirations 16, O2 sats 96% room air. REVIEW OF SYSTEMS: No CV, , pulmonary, eye, ENT system symptoms on review. Reliability poor. MENTAL STATUS EXAM: Oriented to herself. Insight, judgment, recent and remote memory, attention, concentration, fund of knowledge poor, consistent with her diagnosis. FINAL DIAGNOSES: Major neurocognitive disorder, Alzheimer, vascular with depression, delusion, behavioral disturbance; anxiety disorder, unspecified; impulse control disorder, unspecified. Rest diagnoses unchanged from admission. DISCHARGE MEDICATIONS: Please refer to the [facility]. DISCHARGE INSTRUCTIONS: Outpatient psychiatric and medical followup at the group home. JIMBO MARLEY MD DR: JEAN/filemon JOB#: [id number] / [id number]
== END 2017-02-02 10:30 | DRG 884 ==
LOC: ER 14:32 → GEROPSY 19:31
PROVIDERS: ADMIT Psychiatry & Neurology Psychiatry; ATTEND Psychiatry & Neurology Psychiatry
DX: F01.51 Vascular dementia, unspecified severity, with behavioral disturbance (principal); F02.81 Dementia in other diseases classified elsewhere, unspecified severity, with behavioral disturbance; E44.1 Mild protein-calorie malnutrition; E87.2 Acidosis; G30.9 Alzheimer's disease, unspecified; E78.5 Hyperlipidemia, unspecified; E11.65 Type 2 diabetes mellitus with hyperglycemia; E86.0 Dehydration; Z66 Do not resuscitate; F32.9 Major depressive disorder, single episode, unspecified; F41.9 Anxiety disorder, unspecified; F63.9 Impulse disorder, unspecified; I10 Essential (primary) hypertension; Z86.73 Personal history of transient ischemic attack (TIA), and cerebral infarction without residual deficits; Z79.899 Other long term (current) drug therapy; Z87.440 Personal history of urinary (tract) infections
CPT/HCPCS: 36415; 51701; 80048; 80053; 80061; 81001; 82306; 82607; 82947; 83036; 83540; 83550; 83605; 84436; 84443; 84480; 85027; 86592; 86593; 87086; 93005; G0480; G0481; J3420; 99285-25

== ENCOUNTER 2017-03-30 17:27 | Inpatient (IN) | payer MEDICARE, BC ==
[~2017-03-30] VITALS: Ht 167.6 cm; Wt 84.1 kg
[~2017-03-30 17:27] MED LIST changes: +ACET325T21 PO; +ATOR20TA58 PO; +CHOL10003 PO; +CYAN10002 IM; +DONE10TA61 PO; +ESCITALOPRAM OX10 MG PO; +MAG355OR87 PO; +MAGN2400 PO; +METH29OI TP; +METO50TA2 PO; +MIRT15TA3 PO; +RISP0.5T3 PO; +TRAZ50TA15 PO
--- NOTE | 2017-03-30 17:33 | ED.ADGEN ---
Past History Past Medical History: CVA, Depression, Diabetes, Hypertension, Other Past Surgical History: No Surgical History, Other Alcohol Use: None Drug Use: None Adult General Chief Complaint Chief Complaint Altered mental status HPI HPI Patient is a 76 year old female who presents with noncompliance and agitation. Patient has a history of dyslipidemia, diabetes, hypertension, protein malabsorption, dementia, vitamin D deficiency, major depressive disorder was psychosis, insomnia. According to the facility that she came from she's been there since February 03 and stopped taking her medicines about a month ago. She denies HI, SI, but is been having conversations with her daughter and son who is not in the room. 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 She fell approximately a week ago and has a bruise over her left temporal area but denies headache or neck pain. She was he was sent in for behavioral health screening and admission. Review of Systems Review of Systems Constitutional: Denies fever or chills [] Eyes: Denies change in visual acuity, redness, or eye pain [] HENT: Denies nasal congestion or sore throat [] Respiratory: Denies cough or shortness of breath [] Cardiovascular: No additional information not addressed in HPI [] GI: Denies abdominal pain, nausea, vomiting, bloody stools or diarrhea [] : Denies dysuria or hematuria [] Musculoskeletal: Denies back pain or joint pain [] Integument: Denies rash or skin lesions [] Neurologic: Denies headache, focal weakness or sensory changes [] Endocrine: Denies polyuria or polydipsia [] Allergies Allergies Allergies Coded Allergies Type Severity Reaction Last Updated Verified No Known Drug Allergies 07/08/14 No Physical Exam Physical Exam Constitutional: Well developed, well nourished, no acute distress, non-toxic appearance. [] HENT: Normocephalic, atraumatic, bilateral external ears normal, oropharynx moist, no oral exudates, nose normal. [] Eyes: PERRLA, EOMI, conjunctiva normal, no discharge. [] Neck: Normal range of motion, no tenderness, supple, no stridor. [] Cardiovascular:Heart rate regular rhythm, no murmur [] Lungs & Thorax: Bilateral breath sounds clear to auscultation [] Abdomen: Bowel sounds normal, soft, no tenderness, no masses, no pulsatile masses. [] Skin: Warm, dry, no erythema, no rash. Ecchymosis approximately 7 x 10 cm above the left eye Back: No tenderness, no CVA tenderness. [] Extremities: No tenderness, no cyanosis, no clubbing, ROM intact, no edema. [] Neurologic: Alert and interactive, normal motor function, normal sensory function, no focal deficits noted. [] Psychologic: Agitated EKG EKG [] Radiology/Procedures Radiology/Procedures [] Course & Med Decision Making Course & Med Decision Making Pertinent Labs and Imaging studies reviewed. (See chart for details) Patient is here for behavioral health screening. CT head, neck, basic labs are pending at this time. Patient being checked out to Dr. Patel for final disposition and a follow-up on pending labs and imaging studies. Final Impression Final Impression Agitation Problems: Dragon Disclaimer Dragon Disclaimer This electronic medical record was generated, in whole or in part, using a voice recognition dictation system. PAULINA PEREZ MD Mar 30, 2017 17:33
--- NOTE | 2017-03-30 18:03 | EKG ---
[address] [address] Test Date: 2017-03-30 Test Time: 17:51:58 Pat Name: ANTHONY ALANIZ Department: Room: Gender: F Head Of Sales And Marketing: : 1940 Requested By: PAULINA PEREZ Order Number: [id number] Reading MD: Measurements Intervals [place] Rate: 99 P: 53 TN: 168 QRS: 11 QRSD: 80 T: 42 QT: 340 QTc: 442 Interpretive Statements SINUS RHYTHM QRS(T) CONTOUR ABNORMALITY CONSIDER ANTEROLATERAL MYOCARDIAL DAMAGE RI6.01 Unconfirmed report No previous ECG available for comparison
[2017-03-30 18:04] LABS: BASO # 0.1 x10^3/uL (0.0-0.2); BASO % 1 % (0-3); EOS # 0.2 x10^3/uL (0.0-0.7); EOS % 2 % (0-3); HEMOGLOBIN 13.8 g/dL (12.0-15.5); LYMPH # 2.3 x10^3/uL (1.0-4.8); LYMPH % 27 % (24-48); MEAN CORPUSCULAR HEMOGLOBIN 32 pg (25-35); MEAN CORPUSCULAR HGB CONC 34 g/dL (31-37); MEAN CORPUSCULAR VOLUME 96 fL (79-100); MONO # 0.6 x10^3/uL (0.0-1.1); MONO % 7 % (0-9); NEUT # 5.5 x10^3uL (1.8-7.7); NEUT % 63 % (31-73); PLATELET COUNT 174 x10^3/uL (140-400); RED BLOOD COUNT 4.29 x10^6/uL (3.50-5.40); RED CELL DISTRIBUTION WIDTH 13.5 % (11.5-14.5); WHITE BLOOD COUNT 8.7 x10^3/uL (4.0-11.0)
[2017-03-30 18:13] LABS: ALBUMIN 3.2 g/dL (3.4-5.0); ALBUMIN/GLOBULIN RATIO 0.8 (1.0-1.7); CALCIUM 9.3 mg/dL (8.5-10.1); CREATININE 1.1 mg/dL (0.6-1.0); GFR 48.2; MAGNESIUM 1.9 mg/dL (1.8-2.4); POTASSIUM 4.3 mmol/L (3.5-5.1); TOTAL BILIRUBIN 0.3 mg/dL (0.2-1.0); TOTAL PROTEIN 7.4 g/dL (6.4-8.2)
--- NOTE | 2017-03-30 18:39 | RAD ---
PQRS STATEMENT: One or more of the following in the visualized dose reduction techniques were utilized for this study: 1. Automatic exposure control, 2. Adjustment of the mA and/or kV according to patient size, 3. Use of iterative reconstruction technique CT HEAD INDICATION: Pt fell several days ago,has bruising on left side of forehead.Pt has tremors in upper extremities.[facility]Images obtained on 01/17/2016 sent for comparison. Acces: [id number] COMPARISON: CT head from 01/17/2016 TECHNIQUE: 5 mm contiguous axial images were obtained from the skull base to the vertex in both bone and soft tissue algorithm. FINDINGS: There is an area of low-attenuation in the right cerebral hemisphere, middle cerebral peduncle, and midbrain. This could represent artifact or sequelae of recent infarct. There is unchanged cephalization the right frontal lobe likely from an old infarct. No evidence of acute intracranial hemorrhage. No extra-axial fluid collections. No mass effect or midline shift. Ventricular size is appropriate. Basal cisterns are patent. No fractures identified.Lui-white differentiation is preserved.Globes and orbits are within normal limits. Visualized paranasal sinuses and mastoid air cells are clear. IMPRESSION: There is an area of low-attenuation in the right cerebral hemisphere, middle cerebral peduncle, and midbrain. This could represent artifact or sequelae of recent infarct. There is unchanged cephalization the right frontal lobe likely from an old infarct. No evidence of acute intracranial hemorrhage. CT CERVICAL SPINE INDICATION: Pt fell several days ago,has bruising on left side of forehead.Pt has tremors in upper extremities.[facility]Images obtained on 01/17/2016 sent for comparison. Acces: [id number] Technique: 2.5 mm contiguous axial images were obtained from the skull base through the cervicothoracic junction in both bone and soft tissue algorithm. Additional sagittal and coronal reconstructions were also performed. FINDINGS: The occipital condyles integrate normally with the lateral masses of C1. The odontoid is intact. There is reversal of cervical lordosis with degenerative disc disease at all levels. Vertebral body heights are maintained. No perching of the facets. There is moderate left foraminal stenosis at C4-C5. There is moderate bilateral foraminal stenosis at C5-C6. There is moderate right and [id number]-ju-kuwberzl left foraminal stenosis at C6-C7. This is due to facet and uncovertebral hypertrophy at these levels. Visualized soft tissues of the neck are within normal limits. Lung apices show no abnormality. IMPRESSION: Negative for cervical spinal fracture. Multilevel degenerative disc and facet disease. Electronically signed by: Murphy Alvares MD (03/30/2017 6:36 PM) [facility]
[2017-03-30 19:52] LABS: BILIRUBIN,URINE NEG (NEG); CLARITY,URINE HAZY; COLOR,URINE STRAW; GLUCOSE,URINE NEG (NEG); NITRITE,URINE NEG (NEG); UROBILINOGEN,URINE 0.2 mg/dL (0.2 mg/dL)
[2017-03-30 19:53] LABS: BACTERIA,URINE 0 /HPF (0-FEW); HYALINE CASTS, URINE OCC /HPF; SQUAMOUS EPITHELIAL CELL,UR FEW /LPF
[2017-03-30] MEDS ORDERED: MAGN400O7 PO (20:36)
[2017-03-30 21:20] VITALS: BP 147/71
[2017-03-30] MEDS ORDERED: MAG HYDROX/AL HYDROX/SIMETH 30 ML ORAL.SUSP PO PRN (21:30)
[2017-03-30] MEDS ORDERED: traZODone 50 MG TABLET. PO PRN (22:00)
--- NOTE | 2017-03-30 22:04 | NUR ---
Admission Note: Pt arrived at 2114 from Ed via gurney accompanied by staff. Pt anxious, agitated, restless, and continuously states, "I am going home. There is nothing wrong with me." Pt also, periodically speaks to someone who is not actually there calling them by the name of "mother" or "daughter". Pt asks questions and then answers them herself. She appears to have tremors in her hands; however, she consistently shakes her feet which seems to be more anxiety or agitation. Pt stated that has not eaten in two days and she has not taken any medication because she does not need medication. Pt has a bruise over her left eye from a fall that occurred at her facility. A head CT was performed at the ED and was found to be negative. Pt was oriented to her room and restroom, unit routines explained, valuables were noted, pictures taken, sent to safe by way of supervisor multifocal lens. Dr. Loco made aware of her admit.
--- NOTE | 2017-03-31 00:47 | NUR ---
Behavior Intervention Response and Plan: BIRP Note: Behavior: Assumed Care of patient, patient located in Patient Room at shift change. Patient exhibited the following behavior Restless, Agitated, Defensive. Brief assessment on rounds of vital signs, medication needs, lab studies, and pain. Treatment plan problems Dementia w/ BD and Fall Risk. Intervention: Patient assessed and the following interventions initiated safety checks 15 Minute Checks Cognitive Assessment , Head to toe Assessment , Medications. Response: After interactions and interventions patient responded in the following manner, Restless , Agitated ,Defensive. Continue to assess behaviors and condition will continue to monitor throughout the shift as needed. 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 Continue to assess patient for changes in above assessment. Monitor for medication needs, pain, and safety concerns. Hourly rounding performed to ensure safe environment.
[2017-03-31 02:28] VITALS: BP 142/71
--- NOTE | 2017-03-31 04:23 | ACF ---
Admission Criteria Forms PSYCHIATRIC DISORDERS Clinical Indications for Inpatient Care (Place 'X' for any and all applicable criteria): Ongoing inpatient care may be needed for 1 or more of the following(1)(2)(3)(4)( 6)(7)(8): [ ]I. Danger to self or others not manageable at lower level of care. [ ]II. Grave disability (eg, inability to perform self care necessary at lower level of care) [ X]III. Agitation or inappropriate behavior interfering with care for primary condition (eg, attempting to discontinue lines or drains prematurely, unable to cooperate with respiratory care) [ ]IV. Severe disability or disorder indicated by ALL of the following: [ ]a) Severe behavioral health disorder-related symptoms or condition indicated by 1 or more of the following: [ ]i) Severe problem with cognition, memory, judgment, or impulse control [ ]ii) Severe clinical manifestations (eg, hallucinations, delusions, other acute psychotic symptoms, salima, extreme agitation or anxiety) [ ]b) Patient management at lower level of care is not feasible until acute intervention or modification is initiated. Extended stay beyond goal length of stay for the primary condition may be needed untilALLof the following are present(1)(2)(3)(4)(722)(23): [ ]a) Danger to self or others is absent or manageable at lower level of care [ ]b) Behavior crisis management, including physical or chemical restraints, is required and is not available at a lower level of care. [ ]c) Behavioral symptoms (e.g., agitation, somnolence, inappropriate behavior) are present, and are not manageable at a lower level of care. [ ]d) Patient cannot understand follow-up treatment and crisis plan. [ ]e) Provider and supports are sufficiently available at lower level of care. [ ]f) Patient can participate (e.g., verify absence of plan for harm) and is in needed of monitoring. The original [facility] content created by [facility] [employer] has been revised. The portions of the content which have been revised are identified through the use of italic text, and [facility] [employer] has neither reviewed nor approved the modified material. All other unmodified content is copyright [facility]. Please see references footnoted in the original [facility] edition 2015 Admission Criteria Met?: Yes BECKY RUIZ Mar 31, 2017 04:23
[2017-03-31 05:52] VITALS: BP 119/73
[2017-03-31] MEDS ORDERED: ACETAMINOPHEN 325 MG TABLET PO PRN (06:30)
[2017-03-31] MEDS ORDERED: METHYL SALICYLATE/MENTHOL TOPICAL OINTMENT 29GM TUBE. TP PRN (06:30)
[2017-03-31] MEDS ORDERED: MAG HYDROX/AL HYDROX/SIMETH 30 ML ORAL.SUSP PO PRN (06:30)
[2017-03-31] MEDS ORDERED: MAGNESIUM HYDROXIDE 2,400 MG/30 ML ORAL.SUSP. PO PRN (06:45)
[2017-03-31] MEDS: CHOLECALCIFEROL (VITAMIN D3) 1,000 UNIT TABLET PO SCH ×3 (07:30→12:43)
[2017-03-31] MEDS: risperiDONE 0.5 MG TABLET. PO SCH ×2 (08:41→09:00)
[2017-03-31] MEDS: METOPROLOL TART IMMED RELEASE 50 MG TABLET PO SCH ×3 (08:41→20:23)
[2017-03-31] MEDS: CYANOCOBALAMIN (VITAMIN B-12) 1,000 MCG/ML VIAL IM SCH ×2 (08:42→09:00)
[2017-03-31] MEDS: DONEPEZIL HCL 10 MG TABLET PO SCH ×2 (08:43→09:00)
[2017-03-31] MEDS: ESCITALOPRAM 10 MG TABLET. PO SCH ×2 (08:43→09:00)
--- NOTE | 2017-03-31 08:55 | NUR ---
Patient refused assessment patient states" I am not a patient here". This nurse hid medications in Boost patient pored boost with medications down the bathroom sink. Patient is refusing to take shower and getting upset at this nurse. Patient stood up and started hitting fist on hand stating " I'm not a patient here, I don't need to take a shower.
--- NOTE | 2017-03-31 09:00 | NUR ---
THERAPEUTIC RECREATION GROUP NOTE TITLE :Pool Noodles/ Balloon Bump, Ball Bounce ACTIVITY : Activities and Games GOAL : Increase alertness, focus, morale, decrease stress DURATION : 40 Minutes RESPONSE : No participation.
--- NOTE | 2017-03-31 11:30 | NUR ---
THERAPEUTIC RECREATION GROUP NOTE TITLE :Movement to Music: Flexibility ACTIVITY : Movement/ Exercise GOAL : Increase morale, attention, flexibility. Decrease stress/anxiety. DURATION : 30 Minutes RESPONSE : No participation.
--- NOTE | 2017-03-31 11:36 | NUR ---
Psychosocial Assessment completed w/Pt's dtr/DPOA Alicia at prior admit to this facility 12/2016. Pt. was born and raised in [place] w/2 sisters and 3 brothers. Pt. had one brother born w/Down Syndrome who as an . Pt. worked on the [employer]. PT's mother was raised by her mother, did not attend school and likely suffered from some sort of undiagnosed Mental Health. Pt's mother from Dementia related illness in 2001. Pt. completed HS and moved to [place] where she met and 1st named Ishaan. She has 2 children w/Ishaan named Alicia and Delano. They and she #2 named Tee, although they were only for a very brief time. Pt. then 3rd named Angel for 28 years, had one child w/him named Noam who has very little contact w/the family at this time. They are currently . 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 Pt. suffered a prescription drug problem in the s w/Valium. When the regulations changed in the , it became harder for Pt. to receive a script for Valium, thus forcing her to quit abusing the medication. Pt. has been known to take many over the counter medications for her group home headaches. 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 Pt. was [place] [facility] [place] facility [place]. GOALS: Return to [facility] after medication compliance. 1. Supportive Children 2. Previous baseline reached at last admit.
[2017-03-31 13:23] LABS: THYROID STIM HORMONE (TSH) 2.273 uIU/mL (0.358-3.740)
--- NOTE | 2017-03-31 14:15 | NUR ---
THERAPEUTIC RECREATION GROUP NOTE TITLE :What can we do ALONE, that's FREE, needs NO SUPPLIES, that's FUN, and RELAXING? ACTIVITY : Leisure Awareness GOAL : Increase knowledge of leisure activities DURATION : 45 Minutes RESPONSE : No participation.
[2017-03-31 16:09] VITALS: BP 123/68
--- NOTE | 2017-03-31 16:25 | NUR ---
David contacted Pt's dtr/DPOA Alicia regarding treatment team and any other questions/concerns. Alicia stated Pt. is likely not able to return to [facility] as they are not equipped to manage Pt's level of Dementia. SW gathered details of location and money as during previous admit, location for admit was limited to /[place] area. Alicia is aware for memory care options, the area will need to be considered and is ok with that. Likely, due to financial limitations, LTC may be a better fit for Pt. There is a little money remaining in savings and Pt. does still currently own a home, however, the home may not sell fast due to the condition. DAVID explained how Medicaid works w/financials and Alicia is ok w/LTC. SW then met w/Pt. 1:1 while Pt. lay in bed. Pt. was in a very good mood, but showed obvious confusion as some of the conversation was repeated w/SW. Pt. was anxious as to when she would be dc from this facility. PT. was a relatively accurate historian when speaking about her past work experience and education level. SW questioned Pt. about not taking her medications today and not eating meals. PT. attempted to tell SW she did eat her lunch and she was taking her medications. SW reminded Pt, (Pt previously attended Nursing School) that eating and med compliance is what is healthiest for her. PT. agreed. DAVID will follow up w/PT. in the AM.
--- NOTE | 2017-03-31 18:25 | NUR ---
Please make sure that patient gets trazodone 50mg PRN HS per Dr. Smith.
--- NOTE | 2017-03-31 19:49 | PDOC ---
Exam Fabian Demential Exam: Fabian Note: Please also refer to the separate dictated note~for this date of service dictated separately.~Patient seen individually. Discussed the patient with Nursing staff reviewed the chart.~Reviewed interim history and current functioning. Reviewed vital signs,~Labs/ Radiology~and current medications noted below. Continue current treatment with the changes noted in the dictated addendum note Assessment: Vital Signs: Vital Signs Date Time Temp Pulse Resp B/P (MAP) Pulse Ox O2 Delivery O2 Flow Rate FiO2 03/31/17 16:09 98.1 82 16 123/68 (86) 95 Room Air I&O Intake and Output 03/31/17 07:00 # Voids 1 Current Medications: Meds: Current Medications Al Hydroxide/Mg Hydroxide (Mylanta Plus Xs) 15 ml PRN AFTMEALHC PRN PO DYSPEPSIA; Start 03/30/17 at 21:30 Metoprolol Tartrate (Lopressor) 50 mg BID PO ; Start 03/31/17 at 09:00 Mirtazapine (Remeron) 15 mg QHS PO ; Start 03/31/17 at 21:00 Risperidone (RisperDAL) 0.5 mg DAILY PO ; Start 03/31/17 at 09:00; Stop at 18:22; Status DC Trazodone HCl (Desyrel) 50 mg PRN QHS PRN PO Insomnia; Start 03/30/17 at 22:00 Escitalopram Oxalate (Lexapro) 10 mg DAILY PO ; Start 03/31/17 at 09:00 Acetaminophen (Tylenol) 650 mg PRN Q6HRS PRN PO PAIN / TEMP; Start 03/31/17 at 06:30 Atorvastatin Calcium (Lipitor) 20 mg QHS PO ; Start 03/31/17 at 21:00 Vitamin D (Vitamin D3) 1,000 unit BIDACBL PO Last administered on 03/31/17t 12: 43; Start 03/31/17 at 07:30 Cyanocobalamin (Vitamin B-12) 1,000 mcg [id number] IM ; Start 03/31/17 at 09:00 Donepezil HCl (Aricept) 10 mg DAILY PO ; Start 03/31/17 at 09:00 Al Hydroxide/Mg Hydroxide (Mylanta Plus Xs) 15 ml PRN AFTMEALHC PRN PO DYSPEPSIA; Start 03/31/17 at 06:30; Status UNV Multi-Ingredient Ointment (Analgesic [place]) 1 mae PRN QID PRN TP MUSCLE PAIN; Start 03/31/17 at 06:30 Magnesium Hydroxide (Milk Of Magnesia) 2,400 mg PRN QHS PRN PO CONSTIPATION; Start 03/31/17 at 06:45 Risperidone (RisperDAL) 0.75 mg DAILY PO ; Start 04/01/17 at 09:00 Active Scripts Active Reported Trazodone Hcl 50 Mg Tablet 50 Mg PO PRN QHS PRN May repeat x1 dose if first dose ineffective. Risperidone 0.5 Mg Tablet 0.5 Mg PO DAILY Mirtazapine 15 Mg Tablet 15 Mg PO QHS Escitalopram Oxalate 10 Mg Tablet 10 Mg PO DAILY Analgesic [place] (Methyl Salicylate/Menthol) 28 Gm Oint...g. 1 Mae TP PRN QID PRN Milk Of Magnesia (Magnesium Hydroxide) 2,400 Mg/10 Ml Oral.susp 2,400 Mg PO PRN QHS PRN Antacid Maximum Strength Liq (Mag Hydrox/Al Hydrox/Simeth) 355 Ml Oral.susp 15 Ml PO PRN AFTMEALHC PRN Cyanocobalamin Injection (Cyanocobalamin (Vitamin B-12)) 1,000 Mcg/1 Ml Vial 1, 000 Mcg IM [id number] Vitamin D3 (Cholecalciferol (Vitamin D3)) 1,000 Unit Tablet 1,000 Unit PO BIDACBL Atorvastatin Calcium 20 Mg Tablet 20 Mg PO DAILY Acetaminophen 325 Mg Tablet 650 Mg PO PRN Q6HRS PRN Aricept (Donepezil Hcl) 10 Mg Tablet 10 Mg PO DAILY Metoprolol Tartrate 50 Mg Tablet 50 Mg PO BID Diagnosis: Problems: (1) Dementia with behavioral disturbance (2) Confusion (3) Anxiety disorder (4) Dementia in Alzheimer's disease with delusions (5) Dementia in Alzheimer's disease with depression (6) Dementia, vascular, with delusions (7) Dementia, vascular, with depression (8) Impulse control disorder JIMBO MARLEY MD Mar 31, 2017 19:49
[2017-03-31 20:07] LABS: T3 TOTAL 101 ng/dL (71-180); THYROXINE 5.9 ug/dL (4.5-12.0)
[2017-03-31] MEDS: ATORVASTATIN CALCIUM 20 MG TABLET PO SCH (20:23)
[2017-03-31] MEDS: MIRTAZAPINE 15 MG TABLET PO SCH (20:24)
--- NOTE | 2017-03-31 22:38 | NUR ---
Behavior Intervention Response and Plan: BIRP Note: Behavior: Assumed Care of patient, patient located in Patient Room at shift change. Patient exhibited the following behavior Resistive, Agitated, Withdrawn. Brief assessment on rounds of vital signs, medication needs, lab studies, and pain. Treatment plan problems . Intervention: Patient assessed and the following interventions initiated safety checks 15 Minute Checks Cognitive Assessment , Head to toe Assessment , Medications. Response: After interactions and interventions patient responded in the following manner, Resistive , Agitated ,Withdrawn. Continue to assess behaviors and condition will continue to monitor throughout the shift as needed. Plan: Continue to monitor Master Treatment Plan for patient's progress toward short term goals of Decreased Agitation, , manager terminal goals to return to previous living setting vs placement. Continue to assess patient for changes in above assessment. Monitor for medication needs, pain, and safety concerns. Hourly rounding performed to ensure safe environment.
[2017-04-01 04:10] LABS: HEMOGLOBIN A1C 6.3 % (4.8-5.6)
[2017-04-01 05:53] VITALS: BP 103/74
[2017-04-01] MEDS: CHOLECALCIFEROL (VITAMIN D3) 1,000 UNIT TABLET PO SCH ×2 (09:31→12:15)
[2017-04-01] MEDS: DONEPEZIL HCL 10 MG TABLET PO SCH (09:31)
[2017-04-01] MEDS: ESCITALOPRAM 10 MG TABLET. PO SCH (09:32)
[2017-04-01] MEDS: METOPROLOL TART IMMED RELEASE 50 MG TABLET PO SCH ×2 (09:32→21:26)
[2017-04-01] MEDS: risperiDONE 0.5 MG TABLET. PO SCH (09:34)
--- NOTE | 2017-04-01 10:36 | NUR ---
MAIA spoke w/Pt's dtrAlicia as Treatment Team was not available to contact her this am. Alicia is currently working w/a placement agency called [facility]. MAIA asked Alicia to notify MAIA as duplicated placement services would not be in the best interest of the Pt. Alicia decided to just have this SW look into placement and she will email her contact at [facility] regarding this decision. MAIA to follow up on Wednesday.
--- NOTE | 2017-04-01 11:00 | NUR ---
ACTIVITY THERAPY ASSESSMENT Completed based on observation and interview on this day in Pt's room. Pt. was agreeable and welcoming. She was laying in her bed and remained there throughout the entire assessment. She had difficulty remembering why she was here exactly but was able to recall other facts and details. She stated she liked to dance but needed a list of leisure activities to discover other interests. She said she likes music- cheondoism, pop and country. She also said she enjoys reading true stories or biographies. She stays in her room most of the day and has minimal interaction with others. Initial goal aimed to increase socialization: Pt. will participate in at least one group a day.
--- NOTE | 2017-04-01 14:00 | NUR ---
THERAPEUTIC RECREATION GROUP NOTE TITLE :Drum Tolstoy and Easy Listening ACTIVITY : Music GOAL : Increase socialization, elevate mood, stimulate memory DURATION : 60 Minutes RESPONSE : No participation.
[2017-04-01 15:32] VITALS: BP 127/94
--- NOTE | 2017-04-01 16:25 | NUR ---
Behavior Intervention Response and Plan: BIRP Note: Behavior: Assumed Care of patient, patient located in Dining Room at shift change. Patient exhibited the following behavior Delusions, Motor Retardation, Compliant. Brief assessment on rounds of vital signs, medication needs, lab studies, and pain. Treatment plan problems . Intervention: Patient assessed and the following interventions initiated safety checks 15 Minute Checks Cognitive Assessment , Head to toe Assessment , Medications. Response: After interactions and interventions patient responded in the following manner, Disorganized , Withdrawn ,Delusions. Continue to assess behaviors and condition will continue to monitor throughout the shift as needed. 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 Continue to assess patient for changes in above assessment. Monitor for medication needs, pain, and safety concerns. Hourly rounding performed to ensure safe environment.
--- NOTE | 2017-04-01 20:02 | PDOC ---
Exam Fabian Demential Exam: Fabian Note: Please also refer to the separate dictated note~for this date of service dictated separately.~Patient seen individually. Discussed the patient with Nursing staff reviewed the chart.~Reviewed interim history and current functioning. Reviewed vital signs,~Labs/ Radiology~and current medications noted below. Continue current treatment with the changes noted in the dictated addendum note Assessment: Vital Signs: Vital Signs Date Time Temp Pulse Resp B/P (MAP) Pulse Ox O2 Delivery O2 Flow Rate FiO2 04/01/17 15:32 97.6 69 18 127/94 (105) 96 03/31/17 16:09 Room Air I&O Intake and Output 04/01/17 07:00 Intake Total 480 ml Balance 480 ml Intake Oral 480 ml # Voids 1 Current Medications: Meds: Current Medications Al Hydroxide/Mg Hydroxide (Mylanta Plus Xs) 15 ml PRN AFTMEALHC PRN PO DYSPEPSIA; Start 03/30/17 at 21:30 Metoprolol Tartrate (Lopressor) 50 mg BID PO Last administered on 04/01/17 09: 32; Start 03/31/17 at 09:00 Mirtazapine (Remeron) 15 mg QHS PO Last administered on 03/31/17 20:24; Start 03/31/17 at 21:00 Risperidone (RisperDAL) 0.5 mg DAILY PO ; Start 03/31/17 at 09:00; Stop at 18:22; Status DC Trazodone HCl (Desyrel) 50 mg PRN QHS PRN PO Insomnia Last administered on 03/31 20:23; Start 03/30/17 at 22:00 Escitalopram Oxalate (Lexapro) 10 mg DAILY PO Last administered on 04/01/17 09 :32; Start 03/31/17 at 09:00 Acetaminophen (Tylenol) 650 mg PRN Q6HRS PRN PO PAIN / TEMP; Start 03/31/17 at 06:30 Atorvastatin Calcium (Lipitor) 20 mg QHS PO Last administered on 03/31/17 20: 23; Start 03/31/17 at 21:00 Vitamin D (Vitamin D3) 1,000 unit BIDACBL PO Last administered on 04/01/17 12: 15; Start 03/31/17 at 07:30 Cyanocobalamin (Vitamin B-12) 1,000 mcg [id number] IM ; Start 03/31/17 at 09:00 Donepezil HCl (Aricept) 10 mg DAILY PO Last administered on 04/01/17 09:31; Start 03/31/17 at 09:00 Al Hydroxide/Mg Hydroxide (Mylanta Plus Xs) 15 ml PRN AFTMEALHC PRN PO DYSPEPSIA; Start 03/31/17 at 06:30; Status UNV Multi-Ingredient Ointment (Analgesic [place]) 1 mae PRN QID PRN TP MUSCLE PAIN; Start 03/31/17 at 06:30 Magnesium Hydroxide (Milk Of Magnesia) 2,400 mg PRN QHS PRN PO CONSTIPATION; Start 03/31/17 at 06:45 Risperidone (RisperDAL) 0.75 mg DAILY PO Last administered on 04/01/17 09:34; Start 04/01/17 at 09:00 Active Scripts Active Reported Trazodone Hcl 50 Mg Tablet 50 Mg PO PRN QHS PRN May repeat x1 dose if first dose ineffective. Risperidone 0.5 Mg Tablet 0.5 Mg PO DAILY Mirtazapine 15 Mg Tablet 15 Mg PO QHS Escitalopram Oxalate 10 Mg Tablet 10 Mg PO DAILY Analgesic [place] (Methyl Salicylate/Menthol) 28 Gm Oint...g. 1 Mae TP PRN QID PRN Milk Of Magnesia (Magnesium Hydroxide) 2,400 Mg/10 Ml Oral.susp 2,400 Mg PO PRN QHS PRN Antacid Maximum Strength Liq (Mag Hydrox/Al Hydrox/Simeth) 355 Ml Oral.susp 15 Ml PO PRN AFTMEALHC PRN Cyanocobalamin Injection (Cyanocobalamin (Vitamin B-12)) 1,000 Mcg/1 Ml Vial 1, 000 Mcg IM [id number] Vitamin D3 (Cholecalciferol (Vitamin D3)) 1,000 Unit Tablet 1,000 Unit PO BIDACBL Atorvastatin Calcium 20 Mg Tablet 20 Mg PO DAILY Acetaminophen 325 Mg Tablet 650 Mg PO PRN Q6HRS PRN Aricept (Donepezil Hcl) 10 Mg Tablet 10 Mg PO DAILY Metoprolol Tartrate 50 Mg Tablet 50 Mg PO BID Diagnosis: Problems: (1) Confusion (2) Dementia with behavioral disturbance (3) Anxiety disorder (4) Dementia in Alzheimer's disease with delusions (5) Dementia in Alzheimer's disease with depression (6) Dementia, vascular, with delusions (7) Dementia, vascular, with depression (8) Impulse control disorder JIMBO MARLEY MD Apr 01, 2017 20:02
[2017-04-01] MEDS: ATORVASTATIN CALCIUM 20 MG TABLET PO SCH (21:26)
[2017-04-01] MEDS: MIRTAZAPINE 15 MG TABLET PO SCH (21:26)
--- NOTE | 2017-04-01 21:44 | NUR ---
Nursing Note Patient is hallucinating visual/auditory. Patient is speaking to her son and is hearing him respond to her. When informed that she is alone in the room patient states "no my son is right here with me". Patient is pleasant at this time and is currently in the day room watching TV.
[2017-04-02 06:15] VITALS: BP 123/77
[2017-04-02] MEDS: risperiDONE 0.5 MG TABLET. PO SCH (08:12)
[2017-04-02] MEDS: ESCITALOPRAM 10 MG TABLET. PO SCH (08:12)
[2017-04-02] MEDS: METOPROLOL TART IMMED RELEASE 50 MG TABLET PO SCH ×2 (08:13→21:38)
[2017-04-02] MEDS: DONEPEZIL HCL 10 MG TABLET PO SCH (08:13)
[2017-04-02] MEDS: CHOLECALCIFEROL (VITAMIN D3) 1,000 UNIT TABLET PO SCH ×2 (08:13→12:07)
--- NOTE | 2017-04-02 09:00 | NUR ---
THERAPEUTIC RECREATION GROUP NOTE TITLE :Relaxation Session: Progressive Rain Storm, Music and Aromatherapy ACTIVITY : Relaxation GOAL : Decrease stress, elevate mood, increase concentration/attention, encourage awareness DURATION : 50 Minutes RESPONSE : No participation
--- NOTE | 2017-04-02 11:30 | NUR ---
THERAPEUTIC RECREATION GROUP NOTE TITLE :Movement to Music: Flexibility and Ball Bounce ACTIVITY : Movement/ Exercise GOAL : Increase morale, attention, flexibility. Decrease stress/anxiety. DURATION : 30 Minutes RESPONSE : No participation
--- NOTE | 2017-04-02 14:15 | NUR ---
THERAPEUTIC RECREATION GROUP NOTE TITLE :[place] ACTIVITY : Music GOAL : Increase socialization, elevate mood, stimulate memory DURATION : 60 Minutes RESPONSE : No participation
[2017-04-02 16:31] VITALS: BP 115/66
--- NOTE | 2017-04-02 17:54 | NUR ---
Behavior Intervention Response and Plan: BIRP Note: Behavior: Assumed Care of patient, patient located in Patient Room at shift change. Patient exhibited the following behavior Irritable, Resistive, Hallucinating. Brief assessment on rounds of vital signs, medication needs, lab studies, and pain. Treatment plan problems . Intervention: Patient assessed and the following interventions initiated safety checks 15 Minute Checks Cognitive Assessment , Head to toe Assessment , Medications. Response: After interactions and interventions patient responded in the following manner, Withdrawn , Delusions ,Calm. Continue to assess behaviors and condition will continue to monitor throughout the shift as needed. Plan: Continue to monitor Master Treatment Plan for patient's progress toward short term goals of Decreased Agitation, Medication Compliance, terminal operator goals to return to previous living setting vs placement. Continue to assess patient for changes in above assessment. Monitor for medication needs, pain, and safety concerns. Hourly rounding performed to ensure safe environment.
--- NOTE | 2017-04-02 20:04 | PDOC ---
Exam Fabian Demential Exam: Afbian Note: Please also refer to the separate dictated note~for this date of service dictated separately.~Patient seen individually. Discussed the patient with Nursing staff reviewed the chart.~Reviewed interim history and current functioning. Reviewed vital signs,~Labs/ Radiology~and current medications noted below. Continue current treatment with the changes noted in the dictated addendum note Assessment: Vital Signs: Vital Signs Date Time Temp Pulse Resp B/P (MAP) Pulse Ox O2 Delivery O2 Flow Rate FiO2 04/02/17 16:31 96.4 78 16 115/66 (82) 94 03/31/17 16:09 Room Air I&O Intake and Output 04/02/17 07:00 Intake Total 680 ml Balance 680 ml Intake Oral 680 ml # Voids 1 Current Medications: Meds: Current Medications Al Hydroxide/Mg Hydroxide (Mylanta Plus Xs) 15 ml PRN AFTMEALHC PRN PO DYSPEPSIA; Start 03/30/17 at 21:30 Metoprolol Tartrate (Lopressor) 50 mg BID PO Last administered on 04/02/17 08: 13; Start 03/31/17 at 09:00 Mirtazapine (Remeron) 15 mg QHS PO Last administered on 04/01/17 21:26; Start 03/31/17 at 21:00 Risperidone (RisperDAL) 0.5 mg DAILY PO ; Start 03/31/17 at 09:00; Stop at 18:22; Status DC Trazodone HCl (Desyrel) 50 mg PRN QHS PRN PO Insomnia Last administered on 03/31 20:23; Start 03/30/17 at 22:00 Escitalopram Oxalate (Lexapro) 10 mg DAILY PO Last administered on 04/02/17 08 :12; Start 03/31/17 at 09:00 Acetaminophen (Tylenol) 650 mg PRN Q6HRS PRN PO PAIN / TEMP; Start 03/31/17 at 06:30 Atorvastatin Calcium (Lipitor) 20 mg QHS PO Last administered on 04/01/17 21: 26; Start 03/31/17 at 21:00 Vitamin D (Vitamin D3) 1,000 unit BIDACBL PO Last administered on 04/02/17 12: 07; Start 03/31/17 at 07:30 Cyanocobalamin (Vitamin B-12) 1,000 mcg [id number] IM ; Start 03/31/17 at 09:00 Donepezil HCl (Aricept) 10 mg DAILY PO Last administered on 04/02/17 08:13; Start 03/31/17 at 09:00 Al Hydroxide/Mg Hydroxide (Mylanta Plus Xs) 15 ml PRN AFTMEALHC PRN PO DYSPEPSIA; Start 03/31/17 at 06:30; Status UNV Multi-Ingredient Ointment (Analgesic [place]) 1 mae PRN QID PRN TP MUSCLE PAIN; Start 03/31/17 at 06:30 Magnesium Hydroxide (Milk Of Magnesia) 2,400 mg PRN QHS PRN PO CONSTIPATION; Start 03/31/17 at 06:45 Risperidone (RisperDAL) 0.75 mg DAILY PO Last administered on 04/02/17 08:12; Start 04/01/17 at 09:00 Melatonin 3 mg HS PO ; Start 04/02/17 at 21:00 Buspirone HCl (Buspar) 5 mg BID92 PO ; Start 04/03/17 at 09:00 Active Scripts Active Reported Trazodone Hcl 50 Mg Tablet 50 Mg PO PRN QHS PRN May repeat x1 dose if first dose ineffective. Risperidone 0.5 Mg Tablet 0.5 Mg PO DAILY Mirtazapine 15 Mg Tablet 15 Mg PO QHS Escitalopram Oxalate 10 Mg Tablet 10 Mg PO DAILY Analgesic [place] (Methyl Salicylate/Menthol) 28 Gm Oint...g. 1 Mae TP PRN QID PRN Milk Of Magnesia (Magnesium Hydroxide) 2,400 Mg/10 Ml Oral.susp 2,400 Mg PO PRN QHS PRN Antacid Maximum Strength Liq (Mag Hydrox/Al Hydrox/Simeth) 355 Ml Oral.susp 15 Ml PO PRN AFTMEALHC PRN Cyanocobalamin Injection (Cyanocobalamin (Vitamin B-12)) 1,000 Mcg/1 Ml Vial 1, 000 Mcg IM [id number] Vitamin D3 (Cholecalciferol (Vitamin D3)) 1,000 Unit Tablet 1,000 Unit PO BIDACBL Atorvastatin Calcium 20 Mg Tablet 20 Mg PO DAILY Acetaminophen 325 Mg Tablet 650 Mg PO PRN Q6HRS PRN Aricept (Donepezil Hcl) 10 Mg Tablet 10 Mg PO DAILY Metoprolol Tartrate 50 Mg Tablet 50 Mg PO BID Diagnosis: Problems: (1) Dementia with behavioral disturbance (2) Anxiety disorder (3) Dementia in Alzheimer's disease with delusions (4) Dementia in Alzheimer's disease with depression (5) Dementia, vascular, with delusions (6) Dementia, vascular, with depression (7) Impulse control disorder JIMBO MARLEY MD Apr 02, 2017 20:04
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
[2017-04-02] MEDS: MELATONIN 3 MG TABLET PO SCH (21:00)
[2017-04-02] MEDS: MIRTAZAPINE 15 MG TABLET PO SCH (21:37)
[2017-04-02] MEDS: ATORVASTATIN CALCIUM 20 MG TABLET PO SCH (21:37)
--- NOTE | 2017-04-03 03:25 | NUR ---
Behavior Intervention Response and Plan: BIRP Note: Behavior: Assumed Care of patient, patient located in Patient Room at shift change. Patient exhibited the following behavior Drowsy, Calm, Resistive. Brief assessment on rounds of vital signs, medication needs, lab studies, and pain. Treatment plan problems 1-2. Intervention: Patient assessed and the following interventions initiated safety checks 15 Minute Checks Cognitive Assessment , Medications , Oral Hydration. Response: After interactions and interventions patient responded in the following manner, Calm , Compliant ,Delusions. Continue to assess behaviors and condition will continue to monitor throughout the shift as needed. Plan: Continue to monitor Master Treatment Plan for patient's progress toward short term goals of Decreased Agitation, Medication Compliance, skilled nursing goals to return to previous living setting vs placement. Continue to assess patient for changes in above assessment. Monitor for medication needs, pain, and safety concerns. Hourly rounding performed to ensure safe environment.
[2017-04-03 06:04] VITALS: BP 125/75
[2017-04-03] MEDS: ESCITALOPRAM 10 MG TABLET. PO SCH (08:07)
[2017-04-03] MEDS: risperiDONE 0.5 MG TABLET. PO SCH (08:07)
[2017-04-03] MEDS: CHOLECALCIFEROL (VITAMIN D3) 1,000 UNIT TABLET PO SCH ×2 (08:07→13:02)
[2017-04-03] MEDS: DONEPEZIL HCL 10 MG TABLET PO SCH (08:07)
[2017-04-03] MEDS: busPIRone 5 MG TABLET. PO SCH ×2 (08:09→13:02)
[2017-04-03] MEDS: METOPROLOL TART IMMED RELEASE 50 MG TABLET PO SCH ×2 (09:00→20:50)
--- NOTE | 2017-04-03 10:31 | NUR ---
Behavior Intervention Response and Plan: BIRP Note: Behavior: Assumed Care of patient, patient located in Patient Room at shift change. Patient exhibited the following behavior calm, cooperative, and compliant. Brief assessment on rounds of vital signs, medication needs, lab studies, and pain. Treatment plan problems 1-2. Intervention: Patient assessed and the following interventions initiated safety checks 15 Minute Checks Cognitive Assessment , Medications , Oral Hydration. Response: After interactions and interventions patient responded in the following manner, Calm , Compliant, denies hallucinations. Continue to assess behaviors and condition will continue to monitor throughout the shift as needed. Plan: Continue to monitor Master Treatment Plan for patient's progress toward short term goals of Decreased Agitation, Medication Compliance, chcf goals to return to previous living setting vs placement. Continue to assess patient for changes in above assessment. Monitor for medication needs, pain, and safety concerns. Hourly rounding performed to ensure safe environment.
[2017-04-03 16:10] VITALS: BP 116/68
--- NOTE | 2017-04-03 19:14 | PDOC ---
Exam Fabian Demential Exam: Fabian Note: ~Patient seen individually. Discussed the patient with Nursing staff reviewed the chart.~Reviewed interim history and current functioning. Reviewed vital signs,~Labs/ Radiology~and current medications noted below. Continue current treatment with the changes noted in the dictated addendum note I met with the patient individually the evening of 04/03. Per nursing report patient was having some auditory hallucinations last night. These were not evident during the day today per nursing report. She remains confused alert to herself and place. At times he is quite withdrawn and refuses to participate in activities and meals and taking her medications. Signed note by Dr. Razo when presented to her at times helps with the compliance Review of systems: No CBG UGI I ENT pulmonary system symptoms on review. Mental status examination patient was seen in her room. She is reasonably oriented lying in bed speech is coherent thought process somewhat loose and consistent with her diagnosis. Insight and judgment recent remote memory attention concentration fund of knowledge are poor and consistent with her diagnosis. Psychotic symptoms persist intermittently and some of this is reflective of personality factors per nursing report Plan: Continue psychotropics mentioned below and we may need to increase the Risperdal in due course. Assessment: Vital Signs: Vital Signs Date Time Temp Pulse Resp B/P (MAP) Pulse Ox O2 Delivery O2 Flow Rate FiO2 04/03/17 16:10 98.3 84 20 116/68 (84) 95 Room Air I&O Intake and Output 04/03/17 07:00 Intake Total 600 ml Balance 600 ml Intake Oral 600 ml Current Medications: Meds: Current Medications Al Hydroxide/Mg Hydroxide (Mylanta Plus Xs) 15 ml PRN AFTMEALHC PRN PO DYSPEPSIA; Start 03/30/17 at 21:30 Metoprolol Tartrate (Lopressor) 50 mg BID PO Last administered on 04/02/17 21: 38; Start 03/31/17 at 09:00 Mirtazapine (Remeron) 15 mg QHS PO Last administered on 04/02/17 21:37; Start 03/31/17 at 21:00 Risperidone (RisperDAL) 0.5 mg DAILY PO ; Start 03/31/17 at 09:00; Stop at 18:22; Status DC Trazodone HCl (Desyrel) 50 mg PRN QHS PRN PO Insomnia Last administered on 03/31 20:23; Start 03/30/17 at 22:00 Escitalopram Oxalate (Lexapro) 10 mg DAILY PO Last administered on 04/03/17 08 :07; Start 03/31/17 at 09:00 Acetaminophen (Tylenol) 650 mg PRN Q6HRS PRN PO PAIN / TEMP; Start 03/31/17 at 06:30 Atorvastatin Calcium (Lipitor) 20 mg QHS PO Last administered on 04/02/17 21: 37; Start 03/31/17 at 21:00 Vitamin D (Vitamin D3) 1,000 unit BIDACBL PO Last administered on 04/03/17 13: 02; Start 03/31/17 at 07:30 Cyanocobalamin (Vitamin B-12) 1,000 mcg [id number] IM ; Start 03/31/17 at 09:00 Donepezil HCl (Aricept) 10 mg DAILY PO Last administered on 04/03/17 08:07; Start 03/31/17 at 09:00 Al Hydroxide/Mg Hydroxide (Mylanta Plus Xs) 15 ml PRN AFTMEALHC PRN PO DYSPEPSIA; Start 03/31/17 at 06:30; Status UNV Multi-Ingredient Ointment (Analgesic [place]) 1 mae PRN QID PRN TP MUSCLE PAIN; Start 03/31/17 at 06:30 Magnesium Hydroxide (Milk Of Magnesia) 2,400 mg PRN QHS PRN PO CONSTIPATION; Start 03/31/17 at 06:45 Risperidone (RisperDAL) 0.75 mg DAILY PO Last administered on 04/03/17 08:07; Start 04/01/17 at 09:00 Melatonin 3 mg HS PO ; Start 04/02/17 at 21:00 Buspirone HCl (Buspar) 5 mg [id number] PO Last administered on 04/03/17 13:02; Start 04/03/17 at 09:00 Active Scripts Active Reported Trazodone Hcl 50 Mg Tablet 50 Mg PO PRN QHS PRN May repeat x1 dose if first dose ineffective. Risperidone 0.5 Mg Tablet 0.5 Mg PO DAILY Mirtazapine 15 Mg Tablet 15 Mg PO QHS Escitalopram Oxalate 10 Mg Tablet 10 Mg PO DAILY Analgesic [place] (Methyl Salicylate/Menthol) 28 Gm Oint...g. 1 Mae TP PRN QID PRN Milk Of Magnesia (Magnesium Hydroxide) 2,400 Mg/10 Ml Oral.susp 2,400 Mg PO PRN QHS PRN Antacid Maximum Strength Liq (Mag Hydrox/Al Hydrox/Simeth) 355 Ml Oral.susp 15 Ml PO PRN AFTMEALHC PRN Cyanocobalamin Injection (Cyanocobalamin (Vitamin B-12)) 1,000 Mcg/1 Ml Vial 1, 000 Mcg IM [id number] Vitamin D3 (Cholecalciferol (Vitamin D3)) 1,000 Unit Tablet 1,000 Unit PO BIDACBL Atorvastatin Calcium 20 Mg Tablet 20 Mg PO DAILY Acetaminophen 325 Mg Tablet 650 Mg PO PRN Q6HRS PRN Aricept (Donepezil Hcl) 10 Mg Tablet 10 Mg PO DAILY Metoprolol Tartrate 50 Mg Tablet 50 Mg PO BID Diagnosis: Problems: (1) Impulse control disorder (2) Dementia, vascular, with depression (3) Dementia, vascular, with delusions (4) Dementia in Alzheimer's disease with depression (5) Dementia in Alzheimer's disease with delusions (6) Anxiety disorder (7) Dementia with behavioral disturbance JIMBO MARLEY MD Apr 03, 2017 19:14
[2017-04-03] MEDS: ATORVASTATIN CALCIUM 20 MG TABLET PO SCH (20:50)
[2017-04-03] MEDS: MIRTAZAPINE 15 MG TABLET PO SCH (20:50)
[2017-04-03] MEDS: MELATONIN 3 MG TABLET PO SCH (20:50)
--- NOTE | 2017-04-04 01:06 | NUR ---
Behavior Intervention Response and Plan: BIRP Note: Behavior: Assumed Care of patient, patient located in Bed at shift change. Patient exhibited the following behavior Calm, Disorganized, Irritable. Brief assessment on rounds of vital signs, medication needs, lab studies, and pain. Treatment plan problems :1-2 Intervention: Patient assessed and the following interventions initiated safety checks 15 Minute Checks Cognitive Assessment , Head to toe Assessment , Medications. Response: After interactions and interventions patient responded in the following manner, Disorganized , Resistive ,Non Compliant with Meds. Continue to assess behaviors and condition will continue to monitor throughout the shift as needed. Pt took meds w/ much encouragement on third attempt. 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 Continue to assess patient for changes in above assessment. Monitor for medication needs, pain, and safety concerns. Hourly rounding performed to ensure safe environment.
[2017-04-04 06:39] VITALS: BP 137/74
[2017-04-04] MEDS: DONEPEZIL HCL 10 MG TABLET PO SCH (08:39)
[2017-04-04] MEDS: CHOLECALCIFEROL (VITAMIN D3) 1,000 UNIT TABLET PO SCH ×2 (08:39→13:58)
[2017-04-04] MEDS: METOPROLOL TART IMMED RELEASE 50 MG TABLET PO SCH ×2 (08:40→19:46)
[2017-04-04] MEDS: risperiDONE 0.5 MG TABLET. PO SCH (08:40)
[2017-04-04] MEDS: ESCITALOPRAM 10 MG TABLET. PO SCH (08:40)
[2017-04-04] MEDS: busPIRone 5 MG TABLET. PO SCH ×3 (08:40→19:45)
--- NOTE | 2017-04-04 09:03 | NUR ---
Behavior Intervention Response and Plan: BIRP Note: Behavior: Assumed Care of patient, patient located in Patient Room at shift change. Patient exhibited the following behavior cooperative, pt appears agitated and admits she is agitated bc "I don't look good" Nurse offered for staff to paint her nails and curl her hair however pt stated "Ill do it." and did not go to day room to have her hair and nails done. Pt was cooperative with assessment and medication. Talking to self. Brief assessment on rounds of vital signs, medication needs, lab studies, and pain. Treatment plan problems 1-2. Intervention: Patient assessed and the following interventions initiated safety checks 15 Minute Checks Cognitive Assessment , Medications , Oral Hydration. Response: After interactions and interventions patient responded in the following manner, Calm , Compliant, will not redirect to her room when in another pts room. Continue to assess behaviors and condition will continue to monitor throughout the shift as needed. 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 Continue to assess patient for changes in above assessment. Monitor for medication needs, pain, and safety concerns. Hourly rounding performed to ensure safe environment.
[2017-04-04 10:22] LABS: BASO % 1 % (0-3); EOS # 0.2 x10^3/uL (0.0-0.7); EOS % 3 % (0-3); HEMATOCRIT 39.5 % (36.0-47.0); HEMOGLOBIN 13.4 g/dL (12.0-15.5); LYMPH # 1.6 x10^3/uL (1.0-4.8); LYMPH % 23 % (24-48); MEAN CORPUSCULAR HEMOGLOBIN 33 pg (25-35); MEAN CORPUSCULAR HGB CONC 34 g/dL (31-37); MEAN CORPUSCULAR VOLUME 96 fL (79-100); MONO # 0.5 x10^3/uL (0.0-1.1); MONO % 8 % (0-9); NEUT # 4.6 x10^3uL (1.8-7.7); NEUT % 66 % (31-73); PLATELET COUNT 178 x10^3/uL (140-400); RED BLOOD COUNT 4.12 x10^6/uL (3.50-5.40); RED CELL DISTRIBUTION WIDTH 13.8 % (11.5-14.5); WHITE BLOOD COUNT 6.9 x10^3/uL (4.0-11.0)
[2017-04-04 10:44] LABS: ALBUMIN/GLOBULIN RATIO 0.8 (1.0-1.7); CALCIUM 9.1 mg/dL (8.5-10.1); GFR 53.8; POTASSIUM 4.2 mmol/L (3.5-5.1); TOTAL BILIRUBIN 0.5 mg/dL (0.2-1.0); TOTAL PROTEIN 6.7 g/dL (6.4-8.2)
[2017-04-04 15:58] VITALS: BP 109/54
[2017-04-04] MEDS: ATORVASTATIN CALCIUM 20 MG TABLET PO SCH (19:45)
[2017-04-04] MEDS: MELATONIN 3 MG TABLET PO SCH (19:45)
[2017-04-04] MEDS: MIRTAZAPINE 15 MG TABLET PO SCH (19:46)
--- NOTE | 2017-04-04 20:02 | PDOC ---
Exam Fabian Demential Exam: Fabian Note: Please also refer to the separate dictated note~for this date of service dictated separately.~Patient seen individually. Discussed the patient with Nursing staff reviewed the chart.~Reviewed interim history and current functioning. Reviewed vital signs,~Labs/ Radiology~and current medications noted below. Continue current treatment with the changes noted in the dictated addendum note Assessment: Vital Signs: Vital Signs Date Time Temp Pulse Resp B/P (MAP) Pulse Ox O2 Delivery O2 Flow Rate FiO2 04/04/17 19:46 66 109/54 04/04/17 15:58 97.8 18 97 04/03/17 16:10 Room Air I&O Intake and Output 04/04/17 07:00 Intake Total 720 ml Balance 720 ml Intake Oral 720 ml Labs: Laboratory Tests Test 04/04/17 09:57 White Blood Count 6.9 x10^3/uL (4.0-11.0) Red Blood Count 4.12 x10^6/uL (3.50-5.40) Hemoglobin 13.4 g/dL (12.0-15.5) Hematocrit 39.5 % (36.0-47.0) Mean Corpuscular Volume 96 fL (79-100) Mean Corpuscular Hemoglobin 33 pg (25-35) Mean Corpuscular Hemoglobin Concent 34 g/dL (31-37) Red Cell Distribution Width 13.8 % (11.5-14.5) Platelet Count 178 x10^3/uL (140-400) Neutrophils (%) (Auto) 66 % (31-73) Lymphocytes (%) (Auto) 23 % (24-48) L Monocytes (%) (Auto) 8 % (0-9) Eosinophils (%) (Auto) 3 % (0-3) Basophils (%) (Auto) 1 % (0-3) Neutrophils # (Auto) 4.6 x10^3uL (1.8-7.7) Lymphocytes # (Auto) 1.6 x10^3/uL (1.0-4.8) Monocytes # (Auto) 0.5 x10^3/uL (0.0-1.1) Eosinophils # (Auto) 0.2 x10^3/uL (0.0-0.7) Basophils # (Auto) 0.0 x10^3/uL (0.0-0.2) Sodium Level 139 mmol/L (136-145) Potassium Level 4.2 mmol/L (3.5-5.1) Chloride Level 106 mmol/L (98-107) Carbon Dioxide Level 28 mmol/L (21-32) Anion Gap 5 (6-14) L Blood Urea Nitrogen 18 mg/dL (7-20) Creatinine 1.0 mg/dL (0.6-1.0) Estimated GFR (Cockcroft-Gault) 53.8 BUN/Creatinine Ratio 18 (6-20) Glucose Level 111 mg/dL (70-99) H Calcium Level 9.1 mg/dL (8.5-10.1) Total Bilirubin 0.5 mg/dL (0.2-1.0) Aspartate Amino Transferase (AST) 20 U/L (15-37) Alanine Aminotransferase (ALT) 17 U/L (14-59) Alkaline Phosphatase 93 U/L (46-116) Total Protein 6.7 g/dL (6.4-8.2) Albumin 3.0 g/dL (3.4-5.0) L Albumin/Globulin Ratio 0.8 (1.0-1.7) L Current Medications: Meds: Current Medications Al Hydroxide/Mg Hydroxide (Mylanta Plus Xs) 15 ml PRN AFTMEALHC PRN PO DYSPEPSIA; Start 03/30/17 at 21:30 Metoprolol Tartrate (Lopressor) 50 mg BID PO Last administered on 04/04/17 19: 46; Start 03/31/17 at 09:00 Mirtazapine (Remeron) 15 mg QHS PO Last administered on 04/04/17 19:46; Start 03/31/17 at 21:00 Risperidone (RisperDAL) 0.5 mg DAILY PO ; Start 03/31/17 at 09:00; Stop at 18:22; Status DC Trazodone HCl (Desyrel) 50 mg PRN QHS PRN PO Insomnia Last administered on 03/31 20:23; Start 03/30/17 at 22:00 Escitalopram Oxalate (Lexapro) 10 mg DAILY PO Last administered on 04/04/17 08 :40; Start 03/31/17 at 09:00 Acetaminophen (Tylenol) 650 mg PRN Q6HRS PRN PO PAIN / TEMP; Start 03/31/17 at 06:30 Atorvastatin Calcium (Lipitor) 20 mg QHS PO Last administered on 04/04/17 19: 45; Start 03/31/17 at 21:00 Vitamin D (Vitamin D3) 1,000 unit BIDACBL PO Last administered on 04/04/17 13: 58; Start 03/31/17 at 07:30 Cyanocobalamin (Vitamin B-12) 1,000 mcg [id number] IM ; Start 03/31/17 at 09:00 Donepezil HCl (Aricept) 10 mg DAILY PO Last administered on 04/04/17 08:39; Start 03/31/17 at 09:00 Al Hydroxide/Mg Hydroxide (Mylanta Plus Xs) 15 ml PRN AFTMEALHC PRN PO DYSPEPSIA; Start 03/31/17 at 06:30; Status UNV Multi-Ingredient Ointment (Analgesic [place]) 1 mae PRN QID PRN TP MUSCLE PAIN; Start 03/31/17 at 06:30 Magnesium Hydroxide (Milk Of Magnesia) 2,400 mg PRN QHS PRN PO CONSTIPATION; Start 03/31/17 at 06:45 Risperidone (RisperDAL) 0.75 mg DAILY PO Last administered on 04/04/17 08:40; Start 04/01/17 at 09:00 Melatonin 3 mg HS PO Last administered on 04/04/17 19:45; Start 04/02/17 at 21 :00 Buspirone HCl (Buspar) 5 mg [id number] PO Last administered on 04/04/17 13:58; Start 04/03/17 at 09:00; Stop 04/04/17 at 18:34; Status DC Buspirone HCl (Buspar) 5 mg TID PO Last administered on 04/04/17 19:45; Start 04/04/17 at 21:00 Active Scripts Active Reported Trazodone Hcl 50 Mg Tablet 50 Mg PO PRN QHS PRN May repeat x1 dose if first dose ineffective. Risperidone 0.5 Mg Tablet 0.5 Mg PO DAILY Mirtazapine 15 Mg Tablet 15 Mg PO QHS Escitalopram Oxalate 10 Mg Tablet 10 Mg PO DAILY Analgesic [place] (Methyl Salicylate/Menthol) 28 Gm Oint...g. 1 Mae TP PRN QID PRN Milk Of Magnesia (Magnesium Hydroxide) 2,400 Mg/10 Ml Oral.susp 2,400 Mg PO PRN QHS PRN Antacid Maximum Strength Liq (Mag Hydrox/Al Hydrox/Simeth) 355 Ml Oral.susp 15 Ml PO PRN AFTMEALHC PRN Cyanocobalamin Injection (Cyanocobalamin (Vitamin B-12)) 1,000 Mcg/1 Ml Vial 1, 000 Mcg IM [id number] Vitamin D3 (Cholecalciferol (Vitamin D3)) 1,000 Unit Tablet 1,000 Unit PO BIDACBL Atorvastatin Calcium 20 Mg Tablet 20 Mg PO DAILY Acetaminophen 325 Mg Tablet 650 Mg PO PRN Q6HRS PRN Aricept (Donepezil Hcl) 10 Mg Tablet 10 Mg PO DAILY Metoprolol Tartrate 50 Mg Tablet 50 Mg PO BID Diagnosis: Problems: (1) Confusion (2) Dementia with behavioral disturbance (3) Anxiety disorder (4) Dementia in Alzheimer's disease with delusions (5) Dementia in Alzheimer's disease with depression (6) Dementia, vascular, with delusions (7) Dementia, vascular, with depression (8) Impulse control disorder JIMBO MARLEY MD Apr 04, 2017 20:02
--- NOTE | 2017-04-04 22:15 | NUR ---
Behavior Intervention Response and Plan: BIRP Note: Behavior: Assumed Care of patient, patient located in Patient Room at shift change. Patient exhibited the following behavior Calm, Interactive, Able to Focus on Task. Brief assessment on rounds of vital signs, medication needs, lab studies, and pain. Treatment plan problems . Intervention: Patient assessed and the following interventions initiated safety checks 15 Minute Checks Cognitive Assessment , Head to toe Assessment , Medications. Response: After interactions and interventions patient responded in the following manner, Appropriate , Compliant ,Cooperative. Continue to assess behaviors and condition will continue to monitor throughout the shift as needed. 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 Continue to assess patient for changes in above assessment. Monitor for medication needs, pain, and safety concerns. Hourly rounding performed to ensure safe environment.
[2017-04-05 06:07] VITALS: BP 124/65
[2017-04-05] MEDS: CHOLECALCIFEROL (VITAMIN D3) 1,000 UNIT TABLET PO SCH ×2 (08:08→13:23)
[2017-04-05] MEDS: ESCITALOPRAM 10 MG TABLET. PO SCH (08:09)
[2017-04-05] MEDS: busPIRone 5 MG TABLET. PO SCH ×3 (08:09→20:55)
[2017-04-05] MEDS: DONEPEZIL HCL 10 MG TABLET PO SCH (08:09)
[2017-04-05] MEDS: risperiDONE 0.5 MG TABLET. PO SCH (08:09)
--- NOTE | 2017-04-05 09:00 | NUR ---
THERAPEUTIC RECREATION GROUP NOTE TITLE :Beach Ball Bump ACTIVITY : Activities and Games GOAL : Increase alertness, focus, morale, decrease stress DURATION : 40 Minutes RESPONSE : No participation
[2017-04-05] MEDS: METOPROLOL TART IMMED RELEASE 50 MG TABLET PO SCH ×2 (09:28→20:56)
--- NOTE | 2017-04-05 09:32 | NUR ---
Behavior Intervention Response and Plan: BIRP Note: Behavior: Assumed Care of patient, patient located in Patient Room at shift change. Patient exhibited the following behavior calm, cooperative, and compliant. Brief assessment on rounds of vital signs, medication needs, lab studies, and pain. Treatment plan problems 1-2. Intervention: Patient assessed and the following interventions initiated safety checks 15 Minute Checks Cognitive Assessment , Medications , Oral Hydration. Response: After interactions and interventions patient responded in the following manner, Calm , Compliant, withdrawn to room. Continue to assess behaviors and condition will continue to monitor throughout the shift as needed. 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 Continue to assess patient for changes in above assessment. Monitor for medication needs, pain, and safety concerns. Hourly rounding performed to ensure safe environment.
--- NOTE | 2017-04-05 11:15 | NUR ---
Group Note SB Group Type "You are My [place]" Start Time: 9:45 End Time: 10:20 Problem: Depression Purpose: Increase Motivation, socialization, Level of Participation: absent Behaviors or Symptoms Observed: Pt was in the dayroom, however declined to sit with the group. Interventions: Directed Focus Response: Pt's had a picture of the sun and talked about what they think of regarding the Sun, Sang the song You are my sunshine, group talked about who they sang the song to, who sang it to them, as well as who was the sunshine in their lives. Plan: Group Participation Additional Comments:
--- NOTE | 2017-04-05 11:30 | NUR ---
THERAPEUTIC RECREATION GROUP NOTE TITLE :Movement to Music: Flexibility ACTIVITY : Movement/ Exercise GOAL : Increase morale, attention, flexibility. Decrease stress/anxiety. DURATION : 20 Minutes RESPONSE : No participation
--- NOTE | 2017-04-05 15:21 | NUR ---
SW spoke w/Pt's dtr, Alicia, regarding permission for a CARE Assessment to be completed for admission. Permission given. SW spoke regarding possible placement options as Alicia stated PT's mother at [facility] and likely would still remember this event and not do well. Alicia prefers to start as close to the [place] area as possible, but understands there are limited options in the area. SW will begin the process this week. Alicia prefers a LTCF as Pt. does not have much money left in savings and although she does own a home to be sold, it is in poor condition and is not sure how long it would take for it to sell.
[2017-04-05 15:30] VITALS: BP 137/57
--- NOTE | 2017-04-05 19:57 | PDOC ---
Exam Fabian Demential Exam: Fabian Note: Please also refer to the separate dictated note~for this date of service dictated separately.~Patient seen individually. Discussed the patient with Nursing staff reviewed the chart.~Reviewed interim history and current functioning. Reviewed vital signs,~Labs/ Radiology~and current medications noted below. Continue current treatment with the changes noted in the dictated addendum note Assessment: Vital Signs: Vital Signs Date Time Temp Pulse Resp B/P (MAP) Pulse Ox O2 Delivery O2 Flow Rate FiO2 04/05/17 15:30 97.3 79 18 137/57 (83) 97 Room Air I&O Intake and Output 04/05/17 07:00 Intake Total 240 ml Balance 240 ml Intake Oral 240 ml # Bowel Movements 1 Current Medications: Meds: Current Medications Al Hydroxide/Mg Hydroxide (Mylanta Plus Xs) 15 ml PRN AFTMEALHC PRN PO DYSPEPSIA; Start 03/30/17 at 21:30 Metoprolol Tartrate (Lopressor) 50 mg BID PO Last administered on 04/04/17 19: 46; Start 03/31/17 at 09:00 Mirtazapine (Remeron) 15 mg QHS PO Last administered on 04/04/17 19:46; Start 03/31/17 at 21:00 Risperidone (RisperDAL) 0.5 mg DAILY PO ; Start 03/31/17 at 09:00; Stop at 18:22; Status DC Trazodone HCl (Desyrel) 50 mg PRN QHS PRN PO Insomnia Last administered on 03/31 20:23; Start 03/30/17 at 22:00 Escitalopram Oxalate (Lexapro) 10 mg DAILY PO Last administered on 04/05/17 08 :09; Start 03/31/17 at 09:00 Acetaminophen (Tylenol) 650 mg PRN Q6HRS PRN PO PAIN / TEMP; Start 03/31/17 at 06:30 Atorvastatin Calcium (Lipitor) 20 mg QHS PO Last administered on 04/04/17 19: 45; Start 03/31/17 at 21:00 Vitamin D (Vitamin D3) 1,000 unit BIDACBL PO Last administered on 04/05/17 13: 23; Start 03/31/17 at 07:30 Cyanocobalamin (Vitamin B-12) 1,000 mcg [id number] IM ; Start 03/31/17 at 09:00 Donepezil HCl (Aricept) 10 mg DAILY PO Last administered on 04/05/17 08:09; Start 03/31/17 at 09:00 Al Hydroxide/Mg Hydroxide (Mylanta Plus Xs) 15 ml PRN AFTMEALHC PRN PO DYSPEPSIA; Start 03/31/17 at 06:30; Status UNV Multi-Ingredient Ointment (Analgesic [place]) 1 mae PRN QID PRN TP MUSCLE PAIN; Start 03/31/17 at 06:30 Magnesium Hydroxide (Milk Of Magnesia) 2,400 mg PRN QHS PRN PO CONSTIPATION; Start 03/31/17 at 06:45 Risperidone (RisperDAL) 0.75 mg DAILY PO Last administered on 04/05/17 08:09; Start 04/01/17 at 09:00 Melatonin 3 mg HS PO Last administered on 04/04/17 19:45; Start 04/02/17 at 21 :00 Buspirone HCl (Buspar) 5 mg [id number] PO Last administered on 04/04/17 13:58; Start 04/03/17 at 09:00; Stop 04/04/17 at 18:34; Status DC Buspirone HCl (Buspar) 5 mg TID PO Last administered on 04/05/17 13:23; Start 04/04/17 at 21:00 Active Scripts Active Reported Trazodone Hcl 50 Mg Tablet 50 Mg PO PRN QHS PRN May repeat x1 dose if first dose ineffective. Risperidone 0.5 Mg Tablet 0.5 Mg PO DAILY Mirtazapine 15 Mg Tablet 15 Mg PO QHS Escitalopram Oxalate 10 Mg Tablet 10 Mg PO DAILY Analgesic [place] (Methyl Salicylate/Menthol) 28 Gm Oint...g. 1 Mae TP PRN QID PRN Milk Of Magnesia (Magnesium Hydroxide) 2,400 Mg/10 Ml Oral.susp 2,400 Mg PO PRN QHS PRN Antacid Maximum Strength Liq (Mag Hydrox/Al Hydrox/Simeth) 355 Ml Oral.susp 15 Ml PO PRN AFTMEALHC PRN Cyanocobalamin Injection (Cyanocobalamin (Vitamin B-12)) 1,000 Mcg/1 Ml Vial 1, 000 Mcg IM [id number] Vitamin D3 (Cholecalciferol (Vitamin D3)) 1,000 Unit Tablet 1,000 Unit PO BIDACBL Atorvastatin Calcium 20 Mg Tablet 20 Mg PO DAILY Acetaminophen 325 Mg Tablet 650 Mg PO PRN Q6HRS PRN Aricept (Donepezil Hcl) 10 Mg Tablet 10 Mg PO DAILY Metoprolol Tartrate 50 Mg Tablet 50 Mg PO BID Diagnosis: Problems: (1) Dementia with behavioral disturbance (2) Anxiety disorder (3) Dementia in Alzheimer's disease with delusions (4) Dementia in Alzheimer's disease with depression (5) Dementia, vascular, with delusions (6) Dementia, vascular, with depression (7) Impulse control disorder JIMBO MARLEY MD Apr 05, 2017 19:57
--- NOTE | 2017-04-05 20:35 | PDOC ---
Exam Fabian Demential Exam: Fabian Note: Please also refer to the separate dictated note~for this date of service dictated separately.~Patient seen individually. Discussed the patient with Nursing staff reviewed the chart.~Reviewed interim history and current functioning. Reviewed vital signs,~Labs/ Radiology~and current medications noted below. Continue current treatment with the changes noted in the dictated addendum note S/O: This is a late entry for 04/01/2017, covers elements that are not covered in my initial note. The patient is seen individually on the evening of 2016. Staffed treatment team meeting with the entire team on the morning of . Sleeping about 6 hours, resistive to medications, refusing meals at times. Review of Systems: No CV, , Pulmonary, Eye, ENT system symptoms on review. Reliability is poor. I met with her in her room. MSE: Oriented to herself. Insight and judgment, recent and remote memory, attention and concentration, fund of knowledge are poor consistent with her diagnosis mentioned in my initial note. Plan: Continue psychotropics as mentioned in my initial note. Assessment: Vital Signs: Vital Signs Date Time Temp Pulse Resp B/P (MAP) Pulse Ox O2 Delivery O2 Flow Rate FiO2 04/05/17 15:30 97.3 79 18 137/57 (83) 97 Room Air I&O Intake and Output 04/05/17 07:00 Intake Total 240 ml Balance 240 ml Intake Oral 240 ml # Bowel Movements 1 Current Medications: Meds: Current Medications Al Hydroxide/Mg Hydroxide (Mylanta Plus Xs) 15 ml PRN AFTMEALHC PRN PO DYSPEPSIA; Start 03/30/17 at 21:30 Metoprolol Tartrate (Lopressor) 50 mg BID PO Last administered on 04/04/17 19: 46; Start 03/31/17 at 09:00 Mirtazapine (Remeron) 15 mg QHS PO Last administered on 04/04/17 19:46; Start 03/31/17 at 21:00 Risperidone (RisperDAL) 0.5 mg DAILY PO ; Start 03/31/17 at 09:00; Stop at 18:22; Status DC Trazodone HCl (Desyrel) 50 mg PRN QHS PRN PO Insomnia Last administered on 03/31 20:23; Start 03/30/17 at 22:00 Escitalopram Oxalate (Lexapro) 10 mg DAILY PO Last administered on 04/05/17 08 :09; Start 03/31/17 at 09:00 Acetaminophen (Tylenol) 650 mg PRN Q6HRS PRN PO PAIN / TEMP; Start 03/31/17 at 06:30 Atorvastatin Calcium (Lipitor) 20 mg QHS PO Last administered on 04/04/17 19: 45; Start 03/31/17 at 21:00 Vitamin D (Vitamin D3) 1,000 unit BIDACBL PO Last administered on 04/05/17 13: 23; Start 03/31/17 at 07:30 Cyanocobalamin (Vitamin B-12) 1,000 mcg [id number] IM ; Start 03/31/17 at 09:00 Donepezil HCl (Aricept) 10 mg DAILY PO Last administered on 04/05/17 08:09; Start 03/31/17 at 09:00 Al Hydroxide/Mg Hydroxide (Mylanta Plus Xs) 15 ml PRN AFTMEALHC PRN PO DYSPEPSIA; Start 03/31/17 at 06:30; Status UNV Multi-Ingredient Ointment (Analgesic [place]) 1 mae PRN QID PRN TP MUSCLE PAIN; Start 03/31/17 at 06:30 Magnesium Hydroxide (Milk Of Magnesia) 2,400 mg PRN QHS PRN PO CONSTIPATION; Start 03/31/17 at 06:45 Risperidone (RisperDAL) 0.75 mg DAILY PO Last administered on 04/05/17 08:09; Start 04/01/17 at 09:00 Melatonin 3 mg HS PO Last administered on 04/04/17 19:45; Start 04/02/17 at 21 :00 Buspirone HCl (Buspar) 5 mg [id number] PO Last administered on 04/04/17 13:58; Start 04/03/17 at 09:00; Stop 04/04/17 at 18:34; Status DC Buspirone HCl (Buspar) 5 mg TID PO Last administered on 04/05/17 13:23; Start 04/04/17 at 21:00 Active Scripts Active Reported Trazodone Hcl 50 Mg Tablet 50 Mg PO PRN QHS PRN May repeat x1 dose if first dose ineffective. Risperidone 0.5 Mg Tablet 0.5 Mg PO DAILY Mirtazapine 15 Mg Tablet 15 Mg PO QHS Escitalopram Oxalate 10 Mg Tablet 10 Mg PO DAILY Analgesic [place] (Methyl Salicylate/Menthol) 28 Gm Oint...g. 1 Mae TP PRN QID PRN Milk Of Magnesia (Magnesium Hydroxide) 2,400 Mg/10 Ml Oral.susp 2,400 Mg PO PRN QHS PRN Antacid Maximum Strength Liq (Mag Hydrox/Al Hydrox/Simeth) 355 Ml Oral.susp 15 Ml PO PRN AFTMEALHC PRN Cyanocobalamin Injection (Cyanocobalamin (Vitamin B-12)) 1,000 Mcg/1 Ml Vial 1, 000 Mcg IM [id number] Vitamin D3 (Cholecalciferol (Vitamin D3)) 1,000 Unit Tablet 1,000 Unit PO BIDACBL Atorvastatin Calcium 20 Mg Tablet 20 Mg PO DAILY Acetaminophen 325 Mg Tablet 650 Mg PO PRN Q6HRS PRN Aricept (Donepezil Hcl) 10 Mg Tablet 10 Mg PO DAILY Metoprolol Tartrate 50 Mg Tablet 50 Mg PO BID JIMBO MARLEY MD Apr 05, 2017 20:35
[2017-04-05] MEDS: ATORVASTATIN CALCIUM 20 MG TABLET PO SCH (20:55)
[2017-04-05] MEDS: MELATONIN 3 MG TABLET PO SCH (20:56)
[2017-04-05] MEDS: MIRTAZAPINE 15 MG TABLET PO SCH (20:56)
--- NOTE | 2017-04-05 23:34 | NUR ---
Behavior Intervention Response and Plan: BIRP Note: Behavior: Assumed Care of patient, patient located in Patient Room at shift change. Patient exhibited the following behavior Calm, Resistive, Cooperative. Brief assessment on rounds of vital signs, medication needs, lab studies, and pain. Treatment plan problems dementia w/ BD, non-compliance w/ meds, and fall risk. Intervention: Patient assessed and the following interventions initiated safety checks 15 Minute Checks Cognitive Assessment , Head to toe Assessment , Medications. Response: After interactions and interventions patient responded in the following manner, Calm , Disorganized ,Cooperative. Continue to assess behaviors and condition will continue to monitor throughout the shift as needed. 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 Continue to assess patient for changes in above assessment. Monitor for medication needs, pain, and safety concerns. Hourly rounding performed to ensure safe environment.
[2017-04-06 05:46] VITALS: BP 97/56
[2017-04-06] MEDS: METOPROLOL TART IMMED RELEASE 50 MG TABLET PO SCH ×2 (09:00→19:33)
--- NOTE | 2017-04-06 09:00 | NUR ---
THERAPEUTIC RECREATION GROUP NOTE TITLE :Maximo Singletary Flower Arranging ACTIVITY : Arts and Crafts GOAL : Increase socialization, fine motor skills, creativity DURATION : 60 Minutes RESPONSE : No participation
[2017-04-06 09:25] VITALS: BP 96/51
--- NOTE | 2017-04-06 09:26 | NUR ---
Patient is in bed, eyes closed, easily aroused, her blood pressure is 96/51; will hold blood pressure medications and continue to monitor vital signs and condition.
[2017-04-06] MEDS: DONEPEZIL HCL 10 MG TABLET PO SCH (09:28)
[2017-04-06] MEDS: ESCITALOPRAM 10 MG TABLET. PO SCH (09:28)
[2017-04-06] MEDS: busPIRone 5 MG TABLET. PO SCH ×3 (09:28→19:33)
[2017-04-06] MEDS: CHOLECALCIFEROL (VITAMIN D3) 1,000 UNIT TABLET PO SCH ×2 (09:28→12:37)
[2017-04-06] MEDS: risperiDONE 0.5 MG TABLET. PO SCH (09:29)
--- NOTE | 2017-04-06 09:45 | NUR ---
Behavior Intervention Response and Plan: BIRP Note: Behavior: Assumed Care of patient, patient located in Patient Room at shift change. Patient exhibited the following behavior Disorganized, Withdrawn, Compliant. Brief assessment on rounds of vital signs, medication needs, lab studies, and pain. Treatment plan problems 1 & 2. Intervention: Patient assessed and the following interventions initiated safety checks 15 Minute Checks Cognitive Assessment , Head to toe Assessment , Medications. Response: After interactions and interventions patient responded in the following manner, Calm , Appropriate ,Compliant. Continue to assess behaviors and condition will continue to monitor throughout the shift as needed. 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 Continue to assess patient for changes in above assessment. Monitor for medication needs, pain, and safety concerns. Hourly rounding performed to ensure safe environment.
--- NOTE | 2017-04-06 14:00 | NUR ---
THERAPEUTIC RECREATION GROUP NOTE TITLE :Sing along with Kiersten ACTIVITY : Music GOAL : Increase socialization, elevate mood, stimulate memory DURATION : 60 minutes RESPONSE : No participation
[2017-04-06 16:03] VITALS: BP 129/78
[2017-04-06] MEDS: MELATONIN 3 MG TABLET PO SCH (19:33)
[2017-04-06] MEDS: ATORVASTATIN CALCIUM 20 MG TABLET PO SCH (19:33)
[2017-04-06] MEDS: MIRTAZAPINE 15 MG TABLET PO SCH (19:33)
--- NOTE | 2017-04-06 20:28 | PDOC ---
Exam Fabian Demential Exam: Fabian Note: Please also refer to the separate dictated note~for this date of service dictated separately.~Patient seen individually. Discussed the patient with Nursing staff reviewed the chart.~Reviewed interim history and current functioning. Reviewed vital signs,~Labs/ Radiology~and current medications noted below. Continue current treatment with the changes noted in the dictated addendum note Assessment: Vital Signs: Vital Signs Date Time Temp Pulse Resp B/P (MAP) Pulse Ox O2 Delivery O2 Flow Rate FiO2 04/06/17 19:33 78 129/78 04/06/17 16:03 97.6 18 96 04/05/17 15:30 Room Air I&O Intake and Output 04/06/17 07:00 Intake Total 720 ml Balance 720 ml Intake Oral 720 ml Current Medications: Meds: Current Medications Al Hydroxide/Mg Hydroxide (Mylanta Plus Xs) 15 ml PRN AFTMEALHC PRN PO DYSPEPSIA; Start 03/30/17 at 21:30 Metoprolol Tartrate (Lopressor) 50 mg BID PO Last administered on 04/06/17 19: 33; Start 03/31/17 at 09:00 Mirtazapine (Remeron) 15 mg QHS PO Last administered on 04/06/17 19:33; Start 03/31/17 at 21:00 Risperidone (RisperDAL) 0.5 mg DAILY PO ; Start 03/31/17 at 09:00; Stop at 18:22; Status DC Trazodone HCl (Desyrel) 50 mg PRN QHS PRN PO Insomnia Last administered on 03/31 20:23; Start 03/30/17 at 22:00 Escitalopram Oxalate (Lexapro) 10 mg DAILY PO Last administered on 04/06/17 09 :28; Start 03/31/17 at 09:00 Acetaminophen (Tylenol) 650 mg PRN Q6HRS PRN PO PAIN / TEMP; Start 03/31/17 at 06:30 Atorvastatin Calcium (Lipitor) 20 mg QHS PO Last administered on 04/06/17 19: 33; Start 03/31/17 at 21:00 Vitamin D (Vitamin D3) 1,000 unit BIDACBL PO Last administered on 04/06/17 12: 37; Start 03/31/17 at 07:30 Cyanocobalamin (Vitamin B-12) 1,000 mcg [id number] IM ; Start 03/31/17 at 09:00 Donepezil HCl (Aricept) 10 mg DAILY PO Last administered on 04/06/17 09:28; Start 03/31/17 at 09:00 Al Hydroxide/Mg Hydroxide (Mylanta Plus Xs) 15 ml PRN AFTMEALHC PRN PO DYSPEPSIA; Start 03/31/17 at 06:30; Status UNV Multi-Ingredient Ointment (Analgesic [place]) 1 mae PRN QID PRN TP MUSCLE PAIN; Start 03/31/17 at 06:30 Magnesium Hydroxide (Milk Of Magnesia) 2,400 mg PRN QHS PRN PO CONSTIPATION; Start 03/31/17 at 06:45 Risperidone (RisperDAL) 0.75 mg DAILY PO Last administered on 04/06/17 09:29; Start 04/01/17 at 09:00 Melatonin 3 mg HS PO Last administered on 04/06/17 19:33; Start 04/02/17 at 21 :00 Buspirone HCl (Buspar) 5 mg [id number] PO Last administered on 04/04/17 13:58; Start 04/03/17 at 09:00; Stop 04/04/17 at 18:34; Status DC Buspirone HCl (Buspar) 5 mg TID PO Last administered on 04/06/17 19:33; Start 04/04/17 at 21:00 Active Scripts Active Reported Trazodone Hcl 50 Mg Tablet 50 Mg PO PRN QHS PRN May repeat x1 dose if first dose ineffective. Risperidone 0.5 Mg Tablet 0.5 Mg PO DAILY Mirtazapine 15 Mg Tablet 15 Mg PO QHS Escitalopram Oxalate 10 Mg Tablet 10 Mg PO DAILY Analgesic [place] (Methyl Salicylate/Menthol) 28 Gm Oint...g. 1 Mae TP PRN QID PRN Milk Of Magnesia (Magnesium Hydroxide) 2,400 Mg/10 Ml Oral.susp 2,400 Mg PO PRN QHS PRN Antacid Maximum Strength Liq (Mag Hydrox/Al Hydrox/Simeth) 355 Ml Oral.susp 15 Ml PO PRN AFTMEALHC PRN Cyanocobalamin Injection (Cyanocobalamin (Vitamin B-12)) 1,000 Mcg/1 Ml Vial 1, 000 Mcg IM [id number] Vitamin D3 (Cholecalciferol (Vitamin D3)) 1,000 Unit Tablet 1,000 Unit PO BIDACBL Atorvastatin Calcium 20 Mg Tablet 20 Mg PO DAILY Acetaminophen 325 Mg Tablet 650 Mg PO PRN Q6HRS PRN Aricept (Donepezil Hcl) 10 Mg Tablet 10 Mg PO DAILY Metoprolol Tartrate 50 Mg Tablet 50 Mg PO BID Diagnosis: Problems: (1) Dementia with behavioral disturbance (2) Anxiety disorder (3) Dementia in Alzheimer's disease with delusions (4) Dementia in Alzheimer's disease with depression (5) Dementia, vascular, with delusions (6) Dementia, vascular, with depression (7) Impulse control disorder JIMBO MARLEY MD Apr 06, 2017 20:28
--- NOTE | 2017-04-06 21:07 | PDOC ---
Exam Fabian Demential Exam: Fabian Note: Please also refer to the separate dictated note~for this date of service dictated separately.~Patient seen individually. Discussed the patient with Nursing staff reviewed the chart.~Reviewed interim history and current functioning. Reviewed vital signs,~Labs/ Radiology~and current medications noted below. Continue current treatment with the changes noted in the dictated addendum note S/O: This is a late entry for April 02 covers elements not covered in my initial note. Per nursing report, the patient has been withdrawn, only out for meals, resistive to cares. In the morning of April 02, she remained somewhat psychotic, looking to the corner of the room, talking to Dr. Love. Nursing staff have obtained note from Dr. Love, signed by Dr. Love to convince the patient that she should take her prescribed medications. I met with her in her room. Review of Systems: No CV, , Pulmonary, Eye, ENT system symptoms on review. She slept 4 hour previous night. MSE: Oriented to herself. Insight, judgment, recent and remote memory, attention, concentration, and fund of knowledge are poor consistent with her diagnosis mentioned in my initial note. Plan: Start melatonin 3 mg h.s. consequent to insomnia. She slept 4 hours last night. Start BuSpar 5 mg twice a day. Maintain rest of psychotropics and adjust further as clinically indicated. Assessment: Vital Signs: Vital Signs Date Time Temp Pulse Resp B/P (MAP) Pulse Ox O2 Delivery O2 Flow Rate FiO2 04/06/17 19:33 78 129/78 04/06/17 16:03 97.6 18 96 04/05/17 15:30 Room Air I&O Intake and Output 04/06/17 07:00 Intake Total 720 ml Balance 720 ml Intake Oral 720 ml Current Medications: Meds: Current Medications Al Hydroxide/Mg Hydroxide (Mylanta Plus Xs) 15 ml PRN AFTMEALHC PRN PO DYSPEPSIA; Start 03/30/17 at 21:30 Metoprolol Tartrate (Lopressor) 50 mg BID PO Last administered on 04/06/17 19: 33; Start 03/31/17 at 09:00 Mirtazapine (Remeron) 15 mg QHS PO Last administered on 04/06/17 19:33; Start 03/31/17 at 21:00 Risperidone (RisperDAL) 0.5 mg DAILY PO ; Start 03/31/17 at 09:00; Stop at 18:22; Status DC Trazodone HCl (Desyrel) 50 mg PRN QHS PRN PO Insomnia Last administered on 03/31 20:23; Start 03/30/17 at 22:00 Escitalopram Oxalate (Lexapro) 10 mg DAILY PO Last administered on 04/06/17 09 :28; Start 03/31/17 at 09:00 Acetaminophen (Tylenol) 650 mg PRN Q6HRS PRN PO PAIN / TEMP; Start 03/31/17 at 06:30 Atorvastatin Calcium (Lipitor) 20 mg QHS PO Last administered on 04/06/17 19: 33; Start 03/31/17 at 21:00 Vitamin D (Vitamin D3) 1,000 unit BIDACBL PO Last administered on 04/06/17 12: 37; Start 03/31/17 at 07:30 Cyanocobalamin (Vitamin B-12) 1,000 mcg [id number] IM ; Start 03/31/17 at 09:00 Donepezil HCl (Aricept) 10 mg DAILY PO Last administered on 04/06/17 09:28; Start 03/31/17 at 09:00 Al Hydroxide/Mg Hydroxide (Mylanta Plus Xs) 15 ml PRN AFTMEALHC PRN PO DYSPEPSIA; Start 03/31/17 at 06:30; Status UNV Multi-Ingredient Ointment (Analgesic [place]) 1 mae PRN QID PRN TP MUSCLE PAIN; Start 03/31/17 at 06:30 Magnesium Hydroxide (Milk Of Magnesia) 2,400 mg PRN QHS PRN PO CONSTIPATION; Start 03/31/17 at 06:45 Risperidone (RisperDAL) 0.75 mg DAILY PO Last administered on 04/06/17 09:29; Start 04/01/17 at 09:00 Melatonin 3 mg HS PO Last administered on 04/06/17 19:33; Start 04/02/17 at 21 :00 Buspirone HCl (Buspar) 5 mg [id number] PO Last administered on 04/04/17 13:58; Start 04/03/17 at 09:00; Stop 04/04/17 at 18:34; Status DC Buspirone HCl (Buspar) 5 mg TID PO Last administered on 04/06/17t 19:33; Start 04/04/17 at 21:00 Active Scripts Active Reported Trazodone Hcl 50 Mg Tablet 50 Mg PO PRN QHS PRN May repeat x1 dose if first dose ineffective. Risperidone 0.5 Mg Tablet 0.5 Mg PO DAILY Mirtazapine 15 Mg Tablet 15 Mg PO QHS Escitalopram Oxalate 10 Mg Tablet 10 Mg PO DAILY Analgesic [place] (Methyl Salicylate/Menthol) 28 Gm Oint...g. 1 Mae TP PRN QID PRN Milk Of Magnesia (Magnesium Hydroxide) 2,400 Mg/10 Ml Oral.susp 2,400 Mg PO PRN QHS PRN Antacid Maximum Strength Liq (Mag Hydrox/Al Hydrox/Simeth) 355 Ml Oral.susp 15 Ml PO PRN AFTMEALHC PRN Cyanocobalamin Injection (Cyanocobalamin (Vitamin B-12)) 1,000 Mcg/1 Ml Vial 1, 000 Mcg IM [id number] Vitamin D3 (Cholecalciferol (Vitamin D3)) 1,000 Unit Tablet 1,000 Unit PO BIDACBL Atorvastatin Calcium 20 Mg Tablet 20 Mg PO DAILY Acetaminophen 325 Mg Tablet 650 Mg PO PRN Q6HRS PRN Aricept (Donepezil Hcl) 10 Mg Tablet 10 Mg PO DAILY Metoprolol Tartrate 50 Mg Tablet 50 Mg PO BID JIMBO MARLEY MD Apr 06, 2017 21:07
--- NOTE | 2017-04-06 21:27 | NUR ---
Behavior Intervention Response and Plan: BIRP Note: Behavior: Assumed Care of patient, patient located in Patient Room at shift change. Patient exhibited the following behavior Calm, Withdrawn, Disorganized. Brief assessment on rounds of vital signs, medication needs, lab studies, and pain. Treatment plan problems . Intervention: Patient assessed and the following interventions initiated safety checks 15 Minute Checks Cognitive Assessment , Head to toe Assessment , Medications. Response: After interactions and interventions patient responded in the following manner, Able to Focus on Task , Compliant ,Cooperative. Continue to assess behaviors and condition will continue to monitor throughout the shift as needed. 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 Continue to assess patient for changes in above assessment. Monitor for medication needs, pain, and safety concerns. Hourly rounding performed to ensure safe environment.
[2017-04-07 05:27] VITALS: BP 122/66
[2017-04-07] MEDS: ESCITALOPRAM 10 MG TABLET. PO SCH (08:10)
[2017-04-07] MEDS: DONEPEZIL HCL 10 MG TABLET PO SCH (08:10)
[2017-04-07] MEDS: METOPROLOL TART IMMED RELEASE 50 MG TABLET PO SCH ×2 (08:10→19:55)
[2017-04-07] MEDS: busPIRone 5 MG TABLET. PO SCH ×3 (08:10→19:55)
[2017-04-07] MEDS: CHOLECALCIFEROL (VITAMIN D3) 1,000 UNIT TABLET PO SCH ×2 (08:10→12:03)
[2017-04-07] MEDS: risperiDONE 0.5 MG TABLET. PO SCH (08:11)
--- NOTE | 2017-04-07 08:25 | NUR ---
Behavior Intervention Response and Plan: BIRP Note: Behavior: Assumed Care of patient, patient located in Patient Room at shift change. Patient exhibited the following behavior Disorganized, Withdrawn, Compliant. Brief assessment on rounds of vital signs, medication needs, lab studies, and pain. Treatment plan problems 1 & 2. Intervention: Patient assessed and the following interventions initiated safety checks 15 Minute Checks Cognitive Assessment , Head to toe Assessment , Medications. Response: After interactions and interventions patient responded in the following manner, Calm , Appropriate ,Compliant. Continue to assess behaviors and condition will continue to monitor throughout the shift as needed. 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 Continue to assess patient for changes in above assessment. Monitor for medication needs, pain, and safety concerns. Hourly rounding performed to ensure safe environment.
--- NOTE | 2017-04-07 09:00 | NUR ---
THERAPEUTIC RECREATION GROUP NOTE TITLE :Music [employer]ingo ACTIVITY : Music GOAL : Increase socialization, elevate mood, stimulate memory DURATION : 50 minutes RESPONSE : No participation
--- NOTE | 2017-04-07 10:45 | NUR ---
SW faxed admit referral to the following facilities: [facility], [facility], [facility], [facility], [facility], [facility], [facility], [facility].
--- NOTE | 2017-04-07 11:30 | NUR ---
THERAPEUTIC RECREATION GROUP NOTE TITLE :Movement to Music: Flexibility ACTIVITY : Movement/ Exercise GOAL : Increase morale, attention, flexibility. Decrease stress/anxiety. DURATION : 30 Minutes RESPONSE : No participation
--- NOTE | 2017-04-07 14:20 | NUR ---
THERAPEUTIC RECREATION GROUP NOTE TITLE :ABC's of Leisure ACTIVITY : Leisure Awareness GOAL : Increase knowledge of leisure activities DURATION : 50 Minutes RESPONSE : No participation
[2017-04-07 15:58] VITALS: BP 119/75
[2017-04-07] MEDS: ATORVASTATIN CALCIUM 20 MG TABLET PO SCH (19:55)
[2017-04-07] MEDS: MELATONIN 3 MG TABLET PO SCH (19:55)
[2017-04-07] MEDS: MIRTAZAPINE 15 MG TABLET PO SCH (19:55)
--- NOTE | 2017-04-07 20:19 | PDOC ---
Exam Fabian Demential Exam: Fabian Note: Please also refer to the separate dictated note~for this date of service dictated separately.~Patient seen individually. Discussed the patient with Nursing staff reviewed the chart.~Reviewed interim history and current functioning. Reviewed vital signs,~Labs/ Radiology~and current medications noted below. Continue current treatment with the changes noted in the dictated addendum note Patient seen individually the evening of 04/07. Per nursing report patient remained somewhat withdrawn spends much time in her room has been having some tremors but this is not unusual for her. Per nursing report no clear psychotic symptoms are noted and she is not noted to be hallucinating. No suicidal or homicidal ideation. Review of systems. No eye ENT CV GI/ pulmonary integumentary system symptoms on review. Reliability poor. Mental status examination: Patient is oriented to herself. Insight and judgment recent remote memory attention concentration fund of knowledge are poor and consistent with her diagnosis. She was pleasant as I met with her not very verbal memory is impaired. No clear hallucinations noted on close assessment no suicidal or homicidal ideation. No aggression noted. Impression: Major neurocognitive disorder [place] neurovascular with delusion depression behavioral disturbance Plan: Continue current psychotropics including Risperdal Remeron trazodone Lexapro Aricept BuSpar and melatonin as noted below. Assessment: Vital Signs: Vital Signs Date Time Temp Pulse Resp B/P (MAP) Pulse Ox O2 Delivery O2 Flow Rate FiO2 04/07/17 19:55 70 119/75 04/07/17 15:58 97.6 18 96 04/05/17 15:30 Room Air I&O Intake and Output 04/07/17 07:00 Intake Total 1080 ml Balance 1080 ml Intake Oral 1080 ml Current Medications: Meds: Current Medications Al Hydroxide/Mg Hydroxide (Mylanta Plus Xs) 15 ml PRN AFTMEALHC PRN PO DYSPEPSIA; Start 03/30/17 at 21:30 Metoprolol Tartrate (Lopressor) 50 mg BID PO Last administered on 04/07/17 19: 55; Start 03/31/17 at 09:00 Mirtazapine (Remeron) 15 mg QHS PO Last administered on 04/07/17 19:55; Start 03/31/17 at 21:00 Risperidone (RisperDAL) 0.5 mg DAILY PO ; Start 03/31/17 at 09:00; Stop at 18:22; Status DC Trazodone HCl (Desyrel) 50 mg PRN QHS PRN PO Insomnia Last administered on 03/31 20:23; Start 03/30/17 at 22:00 Escitalopram Oxalate (Lexapro) 10 mg DAILY PO Last administered on 04/07/17 08 :10; Start 03/31/17 at 09:00 Acetaminophen (Tylenol) 650 mg PRN Q6HRS PRN PO PAIN / TEMP; Start 03/31/17 at 06:30 Atorvastatin Calcium (Lipitor) 20 mg QHS PO Last administered on 04/07/17 19: 55; Start 03/31/17 at 21:00 Vitamin D (Vitamin D3) 1,000 unit BIDACBL PO Last administered on 04/07/17 12: 03; Start 03/31/17 at 07:30 Cyanocobalamin (Vitamin B-12) 1,000 mcg [id number] IM ; Start 03/31/17 at 09:00 Donepezil HCl (Aricept) 10 mg DAILY PO Last administered on 04/07/17 08:10; Start 03/31/17 at 09:00 Al Hydroxide/Mg Hydroxide (Mylanta Plus Xs) 15 ml PRN AFTMEALHC PRN PO DYSPEPSIA; Start 03/31/17 at 06:30; Status UNV Multi-Ingredient Ointment (Analgesic [place]) 1 mae PRN QID PRN TP MUSCLE PAIN; Start 03/31/17 at 06:30 Magnesium Hydroxide (Milk Of Magnesia) 2,400 mg PRN QHS PRN PO CONSTIPATION; Start 03/31/17 at 06:45 Risperidone (RisperDAL) 0.75 mg DAILY PO Last administered on 04/07/17 08:11; Start 04/01/17 at 09:00 Melatonin 3 mg HS PO Last administered on 04/07/17 19:55; Start 04/02/17 at 21 :00 Buspirone HCl (Buspar) 5 mg [id number] PO Last administered on 04/04/17 13:58; Start 04/03/17 at 09:00; Stop 04/04/17 at 18:34; Status DC Buspirone HCl (Buspar) 5 mg TID PO Last administered on 7/19/17at 19:55; Start 04/04/17 at 21:00 Active Scripts Active Reported Trazodone Hcl 50 Mg Tablet 50 Mg PO PRN QHS PRN May repeat x1 dose if first dose ineffective. Risperidone 0.5 Mg Tablet 0.5 Mg PO DAILY Mirtazapine 15 Mg Tablet 15 Mg PO QHS Escitalopram Oxalate 10 Mg Tablet 10 Mg PO DAILY Analgesic [place] (Methyl Salicylate/Menthol) 28 Gm Oint...g. 1 Mae TP PRN QID PRN Milk Of Magnesia (Magnesium Hydroxide) 2,400 Mg/10 Ml Oral.susp 2,400 Mg PO PRN QHS PRN Antacid Maximum Strength Liq (Mag Hydrox/Al Hydrox/Simeth) 355 Ml Oral.susp 15 Ml PO PRN AFTMEALHC PRN Cyanocobalamin Injection (Cyanocobalamin (Vitamin B-12)) 1,000 Mcg/1 Ml Vial 1, 000 Mcg IM [id number] Vitamin D3 (Cholecalciferol (Vitamin D3)) 1,000 Unit Tablet 1,000 Unit PO BIDACBL Atorvastatin Calcium 20 Mg Tablet 20 Mg PO DAILY Acetaminophen 325 Mg Tablet 650 Mg PO PRN Q6HRS PRN Aricept (Donepezil Hcl) 10 Mg Tablet 10 Mg PO DAILY Metoprolol Tartrate 50 Mg Tablet 50 Mg PO BID Diagnosis: Problems: (1) Dementia with behavioral disturbance (2) Anxiety disorder (3) Dementia in Alzheimer's disease with delusions (4) Dementia in Alzheimer's disease with depression (5) Dementia, vascular, with delusions (6) Dementia, vascular, with depression (7) Impulse control disorder JIMBO MARLEY MD Apr 07, 2017 20:19
--- NOTE | 2017-04-07 21:14 | PDOC ---
Exam Fabian Demential Exam: Fabian Note: Please also refer to the separate dictated note~for this date of service dictated separately.~Patient seen individually. Discussed the patient with Nursing staff reviewed the chart.~Reviewed interim history and current functioning. Reviewed vital signs,~Labs/ Radiology~and current medications noted below. Continue current treatment with the changes noted in the dictated addendum note S/O: This is a late entry for date of service 04/04/2017. I met with the patient individually on evening of April 04, discussed with nursing staff, and reviewed the chart. The patient slept 6 hours last night. At night, she was wandering into other patient's room, oblivious of where she was going, refused her medications, arguing, became frustrated and made a statement "take a gun and shoot me." Review of Systems: No CV, , Pulmonary, Eye, ENT system symptoms on review. Reliability poor. MSE: Met with her in her room. Oriented to herself, situation. Speech has some latency, coherent. Abstraction is fair. Computation is impaired. Language function is intact. Attention span is short. Mood and affect remain somewhat withdrawn, anxious. Labs: Reviewed. Imp: Unchanged from initial note. Plan: Increase BuSpar from 5 mg b.i.d. to 5 mg three times a day. Maintain rest of the psychotropics, unchanged. Assessment: Vital Signs: Vital Signs Date Time Temp Pulse Resp B/P (MAP) Pulse Ox O2 Delivery O2 Flow Rate FiO2 04/07/17 19:55 70 119/75 04/07/17 15:58 97.6 18 96 04/05/17 15:30 Room Air I&O Intake and Output 04/07/17 07:00 Intake Total 1080 ml Balance 1080 ml Intake Oral 1080 ml Current Medications: Meds: Current Medications Al Hydroxide/Mg Hydroxide (Mylanta Plus Xs) 15 ml PRN AFTMEALHC PRN PO DYSPEPSIA; Start 03/30/17 at 21:30 Metoprolol Tartrate (Lopressor) 50 mg BID PO Last administered on 04/07/17t 19: 55; Start 03/31/17 at 09:00 Mirtazapine (Remeron) 15 mg QHS PO Last administered on 04/07/17 19:55; Start 03/31/17 at 21:00 Risperidone (RisperDAL) 0.5 mg DAILY PO ; Start 03/31/17 at 09:00; Stop at 18:22; Status DC Trazodone HCl (Desyrel) 50 mg PRN QHS PRN PO Insomnia Last administered on 03/31 20:23; Start 03/30/17 at 22:00 Escitalopram Oxalate (Lexapro) 10 mg DAILY PO Last administered on 04/07/17 08 :10; Start 03/31/17 at 09:00 Acetaminophen (Tylenol) 650 mg PRN Q6HRS PRN PO PAIN / TEMP; Start 03/31/17 at 06:30 Atorvastatin Calcium (Lipitor) 20 mg QHS PO Last administered on 04/07/17 19: 55; Start 03/31/17 at 21:00 Vitamin D (Vitamin D3) 1,000 unit BIDACBL PO Last administered on 04/07/17 12: 03; Start 03/31/17 at 07:30 Cyanocobalamin (Vitamin B-12) 1,000 mcg [id number] IM ; Start 03/31/17 at 09:00 Donepezil HCl (Aricept) 10 mg DAILY PO Last administered on 04/07/17 08:10; Start 03/31/17 at 09:00 Al Hydroxide/Mg Hydroxide (Mylanta Plus Xs) 15 ml PRN AFTMEALHC PRN PO DYSPEPSIA; Start 03/31/17 at 06:30; Status UNV Multi-Ingredient Ointment (Analgesic [place]) 1 mae PRN QID PRN TP MUSCLE PAIN; Start 03/31/17 at 06:30 Magnesium Hydroxide (Milk Of Magnesia) 2,400 mg PRN QHS PRN PO CONSTIPATION; Start 03/31/17 at 06:45 Risperidone (RisperDAL) 0.75 mg DAILY PO Last administered on 04/07/17 08:11; Start 04/01/17 at 09:00 Melatonin 3 mg HS PO Last administered on 04/07/17 19:55; Start 04/02/17 at 21 :00 Buspirone HCl (Buspar) 5 mg [id number] PO Last administered on 04/04/17 13:58; Start 04/03/17 at 09:00; Stop 04/04/17 at 18:34; Status DC Buspirone HCl (Buspar) 5 mg TID PO Last administered on 04/07/17t 19:55; Start 04/04/17 at 21:00 Active Scripts Active Reported Trazodone Hcl 50 Mg Tablet 50 Mg PO PRN QHS PRN May repeat x1 dose if first dose ineffective. Risperidone 0.5 Mg Tablet 0.5 Mg PO DAILY Mirtazapine 15 Mg Tablet 15 Mg PO QHS Escitalopram Oxalate 10 Mg Tablet 10 Mg PO DAILY Analgesic [place] (Methyl Salicylate/Menthol) 28 Gm Oint...g. 1 Mae TP PRN QID PRN Milk Of Magnesia (Magnesium Hydroxide) 2,400 Mg/10 Ml Oral.susp 2,400 Mg PO PRN QHS PRN Antacid Maximum Strength Liq (Mag Hydrox/Al Hydrox/Simeth) 355 Ml Oral.susp 15 Ml PO PRN AFTMEALHC PRN Cyanocobalamin Injection (Cyanocobalamin (Vitamin B-12)) 1,000 Mcg/1 Ml Vial 1, 000 Mcg IM [id number] Vitamin D3 (Cholecalciferol (Vitamin D3)) 1,000 Unit Tablet 1,000 Unit PO BIDACBL Atorvastatin Calcium 20 Mg Tablet 20 Mg PO DAILY Acetaminophen 325 Mg Tablet 650 Mg PO PRN Q6HRS PRN Aricept (Donepezil Hcl) 10 Mg Tablet 10 Mg PO DAILY Metoprolol Tartrate 50 Mg Tablet 50 Mg PO BID JIMBO MARLEY MD Apr 07, 2017 21:14
--- NOTE | 2017-04-07 23:50 | NUR ---
Behavior Intervention Response and Plan: BIRP Note: Behavior: Assumed Care of patient, patient located in Patient Room at shift change. Patient exhibited the following behavior Compliant, Disorganized, Anxious. Brief assessment on rounds of vital signs, medication needs, lab studies, and pain. Treatment plan problems Dementia w/ BD, Medication Non-Compliance, and Fall Risk. Intervention: Patient assessed and the following interventions initiated safety checks 15 Minute Checks Cognitive Assessment , Head to toe Assessment , Medications. Response: After interactions and interventions patient responded in the following manner, Compliant , Disorganized ,Cooperative. Continue to assess behaviors and condition will continue to monitor throughout the shift as needed. 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 Continue to assess patient for changes in above assessment. Monitor for medication needs, pain, and safety concerns. Hourly rounding performed to ensure safe environment.
[2017-04-08 05:33] VITALS: BP 100/52
[2017-04-08] MEDS: CHOLECALCIFEROL (VITAMIN D3) 1,000 UNIT TABLET PO SCH ×2 (08:47→14:05)
[2017-04-08] MEDS: METOPROLOL TART IMMED RELEASE 50 MG TABLET PO SCH ×2 (08:47→20:03)
[2017-04-08] MEDS: DONEPEZIL HCL 10 MG TABLET PO SCH (08:47)
[2017-04-08] MEDS: busPIRone 5 MG TABLET. PO SCH ×3 (08:47→20:03)
[2017-04-08] MEDS: ESCITALOPRAM 10 MG TABLET. PO SCH (08:47)
[2017-04-08] MEDS: risperiDONE 0.5 MG TABLET. PO SCH (08:48)
--- NOTE | 2017-04-08 10:49 | NUR ---
Behavior Intervention Response and Plan: BIRP Note: Behavior: Assumed Care of patient, patient located in Patient Room at shift change. Patient exhibited the following behavior Calm, Compliant, Drowsy. Brief assessment on rounds of vital signs, medication needs, lab studies, and pain. Treatment plan problems 1-2. Intervention: Patient assessed and the following interventions initiated safety checks 15 Minute Checks Cognitive Assessment , Head to toe Assessment , Medications. Response: After interactions and interventions patient responded in the following manner, Calm , Drowsy ,Compliant. Continue to assess behaviors and condition will continue to monitor throughout the shift as needed. 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 Continue to assess patient for changes in above assessment. Monitor for medication needs, pain, and safety concerns. Hourly rounding performed to ensure safe environment.
--- NOTE | 2017-04-08 11:30 | NUR ---
THERAPEUTIC RECREATION GROUP NOTE TITLE :Ball Bounce ACTIVITY : Movement/ Exercise GOAL : Increase morale, attention, flexibility. Decrease stress/anxiety. DURATION : 30 Minutes RESPONSE : No participation
--- NOTE | 2017-04-08 14:00 | NUR ---
THERAPEUTIC RECREATION GROUP NOTE TITLE :Clothespin Painting ACTIVITY : Arts and Crafts GOAL : Increase socialization, fine motor skills, creativity DURATION : 60 Minutes RESPONSE : No participation
--- NOTE | 2017-04-08 15:10 | NUR ---
MAIA received message from Pt's dtr, Alicia, regarding accepting admit at [facility]. MAIA contacted Tiffany at [facility] to verify if facility was ready for admit on Wednesday or Wednesday. Tiffany will plan for Wednesday and contact this SW w/transport time.
--- NOTE | 2017-04-08 15:11 | NUR ---
SW met w/Pt. 1:1 while Pt. was in her room laying in her bed. Pt. initially was slightly irritable as this SW began talking about reason for admit into this facility. SW stated Pt. was refusing to take her medications, resulting in her brain to make decisions she would not normally make. PT. stated her brain was just fine, she is a well woman, and she did not need to take medications. SW attempted to lighten up the mood as to decrease potential for further agitation. Pt. began to sit up in bed and SW asked if she was going to stand up and dance. Pt. stated she liked to dance, but she was not going to dance right now. SW asked what other activities Pt. enjoyed and Pt. stated to read, write letters and dance to country music. Pt. was able to eventually relax and joked around w/this SW. PT. asked for the SW to turn the ac up in room as she was cold. Pt. 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 Pt. almost appeared manic to SW w/her drastically changed behavior. SW spoke w/Pt's nurse and Nurse verified PT. also did her "jazz hands" for nurse earlier this day when asked about her tremors.
[2017-04-08 16:02] VITALS: BP 141/68
[2017-04-08] MEDS: ATORVASTATIN CALCIUM 20 MG TABLET PO SCH (20:03)
[2017-04-08] MEDS: MELATONIN 3 MG TABLET PO SCH (20:03)
[2017-04-08] MEDS: MIRTAZAPINE 15 MG TABLET PO SCH (20:03)
--- NOTE | 2017-04-08 20:04 | PDOC ---
Exam Fabian Demential Exam: Fabian Note: Please also refer to the separate dictated note~for this date of service dictated separately.~Patient seen individually. Discussed the patient with Nursing staff reviewed the chart.~Reviewed interim history and current functioning. Reviewed vital signs,~Labs/ Radiology~and current medications noted below. Continue current treatment with the changes noted in the dictated addendum note Assessment: Vital Signs: Vital Signs Date Time Temp Pulse Resp B/P (MAP) Pulse Ox O2 Delivery O2 Flow Rate FiO2 04/08/17 16:02 98.8 75 18 141/68 (92) 96 04/05/17 15:30 Room Air I&O Intake and Output 04/08/17 07:00 Intake Total 1080 ml Balance 1080 ml Intake Oral 1080 ml # Bowel Movements 1 Current Medications: Meds: Current Medications Al Hydroxide/Mg Hydroxide (Mylanta Plus Xs) 15 ml PRN AFTMEALHC PRN PO DYSPEPSIA; Start 03/30/17 at 21:30 Metoprolol Tartrate (Lopressor) 50 mg BID PO Last administered on 04/07/17 19: 55; Start 03/31/17 at 09:00 Mirtazapine (Remeron) 15 mg QHS PO Last administered on 04/07/17 19:55; Start 03/31/17 at 21:00 Risperidone (RisperDAL) 0.5 mg DAILY PO ; Start 03/31/17 at 09:00; Stop at 18:22; Status DC Trazodone HCl (Desyrel) 50 mg PRN QHS PRN PO Insomnia Last administered on 03/31 20:23; Start 03/30/17 at 22:00 Escitalopram Oxalate (Lexapro) 10 mg DAILY PO Last administered on 04/08/17 08 :47; Start 03/31/17 at 09:00 Acetaminophen (Tylenol) 650 mg PRN Q6HRS PRN PO PAIN / TEMP; Start 03/31/17 at 06:30 Atorvastatin Calcium (Lipitor) 20 mg QHS PO Last administered on 04/07/17 19: 55; Start 03/31/17 at 21:00 Vitamin D (Vitamin D3) 1,000 unit BIDACBL PO Last administered on 04/08/17 14: 05; Start 03/31/17 at 07:30 Cyanocobalamin (Vitamin B-12) 1,000 mcg [id number] IM ; Start 03/31/17 at 09:00 Donepezil HCl (Aricept) 10 mg DAILY PO Last administered on 04/08/17 08:47; Start 03/31/17 at 09:00 Al Hydroxide/Mg Hydroxide (Mylanta Plus Xs) 15 ml PRN AFTMEALHC PRN PO DYSPEPSIA; Start 03/31/17 at 06:30; Status UNV Multi-Ingredient Ointment (Analgesic [place]) 1 mae PRN QID PRN TP MUSCLE PAIN; Start 03/31/17 at 06:30 Magnesium Hydroxide (Milk Of Magnesia) 2,400 mg PRN QHS PRN PO CONSTIPATION; Start 03/31/17 at 06:45 Risperidone (RisperDAL) 0.75 mg DAILY PO Last administered on 04/08/17 08:48; Start 04/01/17 at 09:00 Melatonin 3 mg HS PO Last administered on 04/07/17 19:55; Start 04/02/17 at 21 :00 Buspirone HCl (Buspar) 5 mg [id number] PO Last administered on 04/04/17 13:58; Start 04/03/17 at 09:00; Stop 04/04/17 at 18:34; Status DC Buspirone HCl (Buspar) 5 mg TID PO Last administered on 04/08/17 14:05; Start 04/04/17 at 21:00 Active Scripts Active Reported Trazodone Hcl 50 Mg Tablet 50 Mg PO PRN QHS PRN May repeat x1 dose if first dose ineffective. Risperidone 0.5 Mg Tablet 0.5 Mg PO DAILY Mirtazapine 15 Mg Tablet 15 Mg PO QHS Escitalopram Oxalate 10 Mg Tablet 10 Mg PO DAILY Analgesic [place] (Methyl Salicylate/Menthol) 28 Gm Oint...g. 1 Mae TP PRN QID PRN Milk Of Magnesia (Magnesium Hydroxide) 2,400 Mg/10 Ml Oral.susp 2,400 Mg PO PRN QHS PRN Antacid Maximum Strength Liq (Mag Hydrox/Al Hydrox/Simeth) 355 Ml Oral.susp 15 Ml PO PRN AFTMEALHC PRN Cyanocobalamin Injection (Cyanocobalamin (Vitamin B-12)) 1,000 Mcg/1 Ml Vial 1, 000 Mcg IM [id number] Vitamin D3 (Cholecalciferol (Vitamin D3)) 1,000 Unit Tablet 1,000 Unit PO BIDACBL Atorvastatin Calcium 20 Mg Tablet 20 Mg PO DAILY Acetaminophen 325 Mg Tablet 650 Mg PO PRN Q6HRS PRN Aricept (Donepezil Hcl) 10 Mg Tablet 10 Mg PO DAILY Metoprolol Tartrate 50 Mg Tablet 50 Mg PO BID Diagnosis: Problems: (1) Confusion (2) Dementia with behavioral disturbance (3) Anxiety disorder (4) Dementia in Alzheimer's disease with delusions (5) Dementia in Alzheimer's disease with depression (6) Dementia, vascular, with delusions (7) Dementia, vascular, with depression (8) Impulse control disorder JIMBO MARLEY MD Apr 08, 2017 20:04
--- NOTE | 2017-04-08 20:15 | NUR ---
Behavior Intervention Response and Plan: BIRP Note: Behavior: Assumed Care of patient, patient located in Patient Room at shift change. Patient exhibited the following behavior Calm, Compliant, Drowsy. Brief assessment on rounds of vital signs, medication needs, lab studies, and pain. Treatment plan problems 1-2. Intervention: Patient assessed and the following interventions initiated safety checks 15 Minute Checks Cognitive Assessment , Head to toe Assessment , Medications. Response: After interactions and interventions patient responded in the following manner, Calm , Drowsy ,Compliant. Continue to assess behaviors and condition will continue to monitor throughout the shift as needed. 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 Continue to assess patient for changes in above assessment. Monitor for medication needs, pain, and safety concerns. Hourly rounding performed to ensure safe environment.
--- NOTE | 2017-04-08 20:57 | PDOC ---
Exam Fabian Demential Exam: Fabian Note: Please also refer to the separate dictated note~for this date of service dictated separately.~Patient seen individually. Discussed the patient with Nursing staff reviewed the chart.~Reviewed interim history and current functioning. Reviewed vital signs,~Labs/ Radiology~and current medications noted below. Continue current treatment with the changes noted in the dictated addendum note S/O: This is a late entry for date of service April 05 covers elements not covered in my initial note of April 05. Per nursing report, the patient did well in the morning, refused medications later in the day when nursing staff presented a note from Dr. Colvin, she accepted her medications. Review of Systems: No CV, , Pulmonary, Eye, ENT system symptoms on review. Reliability poor. She isolates in her room between meals. MSE: Oriented to herself. Insight, judgment, recent and remote memory, attention, concentration, and fund of knowledge are poor consistent with her diagnosis mentioned in my initial note. Plan: Continue current psychotropics. Adjust further as clinically indicated. Assessment: Vital Signs: Vital Signs Date Time Temp Pulse Resp B/P (MAP) Pulse Ox O2 Delivery O2 Flow Rate FiO2 04/08/17 20:03 75 141/68 04/08/17 16:02 98.8 18 96 04/05/17 15:30 Room Air I&O Intake and Output 04/08/17 07:00 Intake Total 1080 ml Balance 1080 ml Intake Oral 1080 ml # Bowel Movements 1 Current Medications: Meds: Current Medications Al Hydroxide/Mg Hydroxide (Mylanta Plus Xs) 15 ml PRN AFTMEALHC PRN PO DYSPEPSIA; Start 03/30/17 at 21:30 Metoprolol Tartrate (Lopressor) 50 mg BID PO Last administered on 04/08/17 20: 03; Start 03/31/17 at 09:00 Mirtazapine (Remeron) 15 mg QHS PO Last administered on 04/08/17 20:03; Start 03/31/17 at 21:00 Risperidone (RisperDAL) 0.5 mg DAILY PO ; Start 03/31/17 at 09:00; Stop at 18:22; Status DC Trazodone HCl (Desyrel) 50 mg PRN QHS PRN PO Insomnia Last administered on 03/31 20:23; Start 03/30/17 at 22:00 Escitalopram Oxalate (Lexapro) 10 mg DAILY PO Last administered on 04/08/17 08 :47; Start 03/31/17 at 09:00 Acetaminophen (Tylenol) 650 mg PRN Q6HRS PRN PO PAIN / TEMP; Start 03/31/17 at 06:30 Atorvastatin Calcium (Lipitor) 20 mg QHS PO Last administered on 04/08/17 20: 03; Start 03/31/17 at 21:00 Vitamin D (Vitamin D3) 1,000 unit BIDACBL PO Last administered on 04/08/17 14: 05; Start 03/31/17 at 07:30 Cyanocobalamin (Vitamin B-12) 1,000 mcg [id number] IM ; Start 03/31/17 at 09:00 Donepezil HCl (Aricept) 10 mg DAILY PO Last administered on 04/08/17 08:47; Start 03/31/17 at 09:00 Al Hydroxide/Mg Hydroxide (Mylanta Plus Xs) 15 ml PRN AFTMEALHC PRN PO DYSPEPSIA; Start 03/31/17 at 06:30; Status UNV Multi-Ingredient Ointment (Analgesic [place]) 1 mae PRN QID PRN TP MUSCLE PAIN; Start 03/31/17 at 06:30 Magnesium Hydroxide (Milk Of Magnesia) 2,400 mg PRN QHS PRN PO CONSTIPATION; Start 03/31/17 at 06:45 Risperidone (RisperDAL) 0.75 mg DAILY PO Last administered on 04/08/17 08:48; Start 04/01/17 at 09:00 Melatonin 3 mg HS PO Last administered on 04/08/17 20:03; Start 04/02/17 at 21 :00 Buspirone HCl (Buspar) 5 mg [id number] PO Last administered on 04/04/17 13:58; Start 04/03/17 at 09:00; Stop 04/04/17 at 18:34; Status DC Buspirone HCl (Buspar) 5 mg TID PO Last administered on 04/08/17 20:03; Start 04/04/17 at 21:00 Active Scripts Active Reported Trazodone Hcl 50 Mg Tablet 50 Mg PO PRN QHS PRN May repeat x1 dose if first dose ineffective. Risperidone 0.5 Mg Tablet 0.5 Mg PO DAILY Mirtazapine 15 Mg Tablet 15 Mg PO QHS Escitalopram Oxalate 10 Mg Tablet 10 Mg PO DAILY Analgesic [place] (Methyl Salicylate/Menthol) 28 Gm Oint...g. 1 Mae TP PRN QID PRN Milk Of Magnesia (Magnesium Hydroxide) 2,400 Mg/10 Ml Oral.susp 2,400 Mg PO PRN QHS PRN Antacid Maximum Strength Liq (Mag Hydrox/Al Hydrox/Simeth) 355 Ml Oral.susp 15 Ml PO PRN AFTMEALHC PRN Cyanocobalamin Injection (Cyanocobalamin (Vitamin B-12)) 1,000 Mcg/1 Ml Vial 1, 000 Mcg IM [id number] Vitamin D3 (Cholecalciferol (Vitamin D3)) 1,000 Unit Tablet 1,000 Unit PO BIDACBL Atorvastatin Calcium 20 Mg Tablet 20 Mg PO DAILY Acetaminophen 325 Mg Tablet 650 Mg PO PRN Q6HRS PRN Aricept (Donepezil Hcl) 10 Mg Tablet 10 Mg PO DAILY Metoprolol Tartrate 50 Mg Tablet 50 Mg PO BID JIMBO MARLEY MD Apr 08, 2017 20:57
[2017-04-09] MEDS ORDERED: MELA3TAB2 PO (04:08)
[2017-04-09] MEDS ORDERED: BUSP5TAB PO (04:10)
[2017-04-09] MEDS ORDERED: RISP0.5T3 PO (04:12)
[2017-04-09 06:25] VITALS: BP 119/78
[2017-04-09] MEDS: risperiDONE 0.5 MG TABLET. PO SCH (09:01)
[2017-04-09] MEDS: CHOLECALCIFEROL (VITAMIN D3) 1,000 UNIT TABLET PO SCH ×2 (09:01→13:03)
[2017-04-09] MEDS: busPIRone 5 MG TABLET. PO SCH ×2 (09:01→13:03)
[2017-04-09] MEDS: DONEPEZIL HCL 10 MG TABLET PO SCH (09:01)
[2017-04-09] MEDS: ESCITALOPRAM 10 MG TABLET. PO SCH (09:01)
[2017-04-09 09:02] VITALS: BP 119/78
[2017-04-09] MEDS: METOPROLOL TART IMMED RELEASE 50 MG TABLET PO SCH (09:02)
--- NOTE | 2017-04-09 09:14 | NUR ---
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
--- NOTE | 2017-04-09 09:18 | NUR ---
SW left message for Pt's dtr, Alicia, regarding transport time to new placement today.
--- NOTE | 2017-04-09 10:45 | NUR ---
THERAPEUTIC RECREATION GROUP NOTE TITLE :[employer] ACTIVITY : Music GOAL : Increase socialization, elevate mood, stimulate memory DURATION : 75 Minutes RESPONSE : Full participation. Pt. started with the group and sang along, loudly with gospel songs. She left about half way through, after the gospel songs were over. She smiled occasionally but did not socialize much.
--- NOTE | 2017-04-09 11:02 | NUR ---
Behavior Intervention Response and Plan: BIRP Note: Behavior: Assumed Care of patient, patient located in Patient Room at shift change. Patient exhibited the following behavior Calm, Withdrawn, Compliant. Brief assessment on rounds of vital signs, medication needs, lab studies, and pain. Treatment plan problems 1-2. Intervention: Patient assessed and the following interventions initiated safety checks 15 Minute Checks Cognitive Assessment , Head to toe Assessment , Medications. Response: After interactions and interventions patient responded in the following manner, Withdrawn , Compliant ,Calm. Continue to assess behaviors and condition will continue to monitor throughout the shift as needed. 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 Continue to assess patient for changes in above assessment. Monitor for medication needs, pain, and safety concerns. Hourly rounding performed to ensure safe environment.
--- NOTE | 2017-04-09 14:00 | NUR ---
Discharge Note [facility] Patient is not currently a tobacco user. Follow up Appointment made: Date and Time 04/09/17 1200 instructions and Social Work Discharge planning sheet sent to next level of care. [facility] contact Number for 24 hour support [phone] Discharge Packet Sent, and discusssed with patient and caregiver that includes Copies from the record of current medications with indications and frequencies, history and physical, Psychiatric Eval with reason and justification for admission, Lab values, Radiology results , follow up instructions for continuation of care, and Social Work discharge planning form: yes Discharge Packet Faxed to Provider/Next Level of Care: yes Discharge Packet Faxed with discharge Order and Discharge diagnosis sent to: Ruthie Abbott Discharge Packet Discussed, and report Given to: JUDSON Barnesbinding cementer french cord instruction sheet was included in the packet and sent with the patient upon discharge. Any Pending lab results can be obtained by calling [phone] Discharge Summary will be sent to next care provider when available. This includes the reason for admission, DC diagnosis, and next level of care recommendations.
--- NOTE | 2017-04-09 22:00 | PN ---
DATE: 04/08/2017 This note covers the elements not covered in my initial note of 04/08/2017. SUBJECTIVE: The patient was staffed at a treatment team meeting with the entire team morning of 04/08/2017, discussed the patient's diagnosis, progress, prognosis, medications; seen individually at some length the evening of 04/08/2017 in her room. Overall, the patient is compliant with her medications, no overt hallucinations noted, which were quite prominent at admission. She is pleasant. REVIEW OF SYSTEMS: No CV, , eye, ENT or pulmonary system symptoms on review. Reliability poor. As I met with her, she appropriately remembered that her roommate was discharged today and she remembered what she had for supper, even though I met her about an hour and a half or so after her supper. MENTAL STATUS EXAM: Oriented to herself. Insight, judgment, recent and remote memory, attention, concentration, fund of knowledge poor, consistent with her diagnosis mentioned in my initial note. PLAN: Continue current psychotropics. Adjust as clinically indicated. MAN Brooks MARLEY MD DR: JEAN/filemon JOB#: [id number] / [id number]
--- NOTE | 2017-04-10 01:28 | DS ---
DATE OF DISCHARGE: 04/09/2017 DISCHARGE SUMMARY/PSYCHIATRIC PROGRESS NOTE REASON FOR ADMISSION: Please refer to the admission history for details. Briefly, the patient is a 76-year-old female referred back to us from [facility] by her primary care physician on account of recurrence of psychotic symptoms, talking to people in the ceiling, refusing her medications, refusing cares, more confused, agitated, refusing to change clothes, refusing to bathe. Behaviors were unmanageable at the assisted living potentially dangerous, disruptive and she was referred for inpatient psychiatric stabilization. She has been an inpatient with us in the past as well. SIGNIFICANT FINDINGS AND CLINICAL COURSE: Following admission, the patient was seen daily individually by myself, followed medically per Dr. Loco/Dr. Lehman. Initially, she remains psychotic, refusing medications. Nursing staff had a note printed out with Dr. Razo's signature telling the patient that he would recommend she take her prescribed medications and this helped the compliance since she seems to trust Dr. Razo and even the signature to a large extent. As she was more compliant with her psychotropic, she was much less psychotic and gradually no evidence of looking into the ceiling and talking. She is coming out for meals, more pleasant, cooperative. She seemed to respond to a combination of Risperdal 0.75 mg daily, Remeron 15 mg at bedtime, trazodone 50 mg at bedtime p.r.n., Lexapro 10 mg a day, Aricept 10 mg a day, BuSpar 5 mg 3 times a day, melatonin 3 mg at bedtime prior to discharge on 04/09/2017. REVIEW OF SYSTEMS: No eye, ENT, CV, , pulmonary system symptoms on review. Reliability poor. MENTAL STATUS EXAM: Oriented to herself, at times to situation. Speech has some latency, coherent. Abstraction fair, computation impaired, language function intact. Memory is impaired. Mood and affect appeared much less labile. LABORATORY DATA: Reviewed. FINAL DIAGNOSES: Major neurocognitive disorder, Alzheimer, vascular with depression, delusion, behavioral disturbance; anxiety disorder, unspecified; impulse control disorder, unspecified. Rest diagnoses unchanged from admission. DISCHARGE MEDICATIONS: Please refer to the MRAD. DISCHARGE INSTRUCTIONS: Outpatient psychiatric and medical followup at the assisted. Time for discharge day management greater than 30 minutes. MAN Brooks MARLEY MD DR: León JOB#: [id number] / [id number]
--- NOTE | 2017-04-11 20:24 | PDOC ---
Exam Fabian Demential Exam: Fabian Note: Please also refer to the separate dictated note~for this date of service dictated separately.~Patient seen individually. Discussed the patient with Nursing staff reviewed the chart.~Reviewed interim history and current functioning. Reviewed vital signs,~Labs/ Radiology~and current medications noted below. Continue current treatment with the changes noted in the dictated addendum note S/O: This is a late entry for date of service April 06 and covers the elements not covered in my initial note of April 06. The patient is seen individually in the evening of April 06. The patient has been somewhat withdrawn between meals, goes back to her room, but does feed herself at meal times, took her medications, less verbal. Review of systems: No CV, , Pulmonary Eye, ENT system symptoms on review. Reliability is poor. MSE: Oriented to herself. Insight, judgment, recent and remote memory, attention, concentration, fund of knowledge are poor consistent with her diagnosis mentioned in my initial note. Plan: Continue current psychotropics. Adjust as indicated. Assessment: Vital Signs: Vital Signs Date Time Temp Pulse Resp B/P (MAP) Pulse Ox O2 Delivery O2 Flow Rate FiO2 04/09/17 09:02 68 119/78 04/09/17 06:25 97.7 16 95 04/05/17 15:30 Room Air Current Medications: Meds: Current Medications Al Hydroxide/Mg Hydroxide (Mylanta Plus Xs) 15 ml PRN AFTMEALHC PRN PO DYSPEPSIA; Start 03/30/17 at 21:30; Stop 04/09/17 at 15:29; Status DC Metoprolol Tartrate (Lopressor) 50 mg BID PO Last administered on 04/09/17 09: 02; Start 03/31/17 at 09:00; Stop 04/09/17 at 15:29; Status DC Mirtazapine (Remeron) 15 mg QHS PO Last administered on 04/08/17 20:03; Start 03/31/17 at 21:00; Stop 04/09/17 at 15:29; Status DC Risperidone (RisperDAL) 0.5 mg DAILY PO ; Start 03/31/17 at 09:00; Stop at 18:22; Status DC Trazodone HCl (Desyrel) 50 mg PRN QHS PRN PO Insomnia Last administered on 03/31 20:23; Start 03/30/17 at 22:00; Stop 04/09/17 at 15:29; Status DC Escitalopram Oxalate (Lexapro) 10 mg DAILY PO Last administered on 04/09/17 09 :01; Start 03/31/17 at 09:00; Stop 04/09/17 at 15:29; Status DC Acetaminophen (Tylenol) 650 mg PRN Q6HRS PRN PO PAIN / TEMP; Start 03/31/17 at 06:30; Stop 04/09/17 at 15:29; Status DC Atorvastatin Calcium (Lipitor) 20 mg QHS PO Last administered on 04/08/17 20: 03; Start 03/31/17 at 21:00; Stop 04/09/17 at 15:29; Status DC Vitamin D (Vitamin D3) 1,000 unit BIDACBL PO Last administered on 04/09/17 13: 03; Start 03/31/17 at 07:30; Stop 04/09/17 at 15:29; Status DC Cyanocobalamin (Vitamin B-12) 1,000 mcg [id number] IM ; Start 03/31/17 at 09:00; Stop 04/09/17 at 15:29; Status DC Donepezil HCl (Aricept) 10 mg DAILY PO Last administered on 04/09/17 09:01; Start 03/31/17 at 09:00; Stop 04/09/17 at 15:29; Status DC Al Hydroxide/Mg Hydroxide (Mylanta Plus Xs) 15 ml PRN AFTMEALHC PRN PO DYSPEPSIA; Start 03/31/17 at 06:30; Status UNV Multi-Ingredient Ointment (Analgesic [place]) 1 mae PRN QID PRN TP MUSCLE PAIN; Start 03/31/17 at 06:30; Stop 04/09/17 at 15:29; Status DC Magnesium Hydroxide (Milk Of Magnesia) 2,400 mg PRN QHS PRN PO CONSTIPATION; Start 03/31/17 at 06:45; Stop 04/09/17 at 15:29; Status DC Risperidone (RisperDAL) 0.75 mg DAILY PO Last administered on 04/09/17 09:01; Start 04/01/17 at 09:00; Stop 04/09/17 at 15:29; Status DC Melatonin 3 mg HS PO Last administered on 04/08/17 20:03; Start 04/02/17 at 21 :00; Stop 04/09/17 at 15:29; Status DC Buspirone HCl (Buspar) 5 mg [id number] PO Last administered on 04/04/17 13:58; Start 04/03/17 at 09:00; Stop 04/04/17 at 18:34; Status DC Buspirone HCl (Buspar) 5 mg TID PO Last administered on 04/09/17 13:03; Start 04/04/17 at 21:00; Stop 04/09/17 at 15:29; Status DC Active Scripts Active Reported Risperidone 0.5 Mg Tablet 0.75 Mg PO DAILY Buspirone Hcl 5 Mg Tablet 5 Mg PO TID Melatonin 3 Mg Tablet 3 Mg PO QHS Trazodone Hcl 50 Mg Tablet 50 Mg PO PRN QHS PRN May repeat x1 dose if first dose ineffective. Mirtazapine 15 Mg Tablet 15 Mg PO QHS Escitalopram Oxalate 10 Mg Tablet 10 Mg PO DAILY Analgesic [place] (Methyl Salicylate/Menthol) 28 Gm Oint...g. 1 Mae TP PRN QID PRN Milk Of Magnesia (Magnesium Hydroxide) 2,400 Mg/10 Ml Oral.susp 2,400 Mg PO PRN QHS PRN Antacid Maximum Strength Liq (Mag Hydrox/Al Hydrox/Simeth) 355 Ml Oral.susp 15 Ml PO PRN AFTMEALHC PRN Cyanocobalamin Injection (Cyanocobalamin (Vitamin B-12)) 1,000 Mcg/1 Ml Vial 1, 000 Mcg IM [id number] Vitamin D3 (Cholecalciferol (Vitamin D3)) 1,000 Unit Tablet 1,000 Unit PO BIDACBL Atorvastatin Calcium 20 Mg Tablet 20 Mg PO QHS Acetaminophen 325 Mg Tablet 650 Mg PO PRN Q6HRS PRN Aricept (Donepezil Hcl) 10 Mg Tablet 10 Mg PO DAILY Metoprolol Tartrate 50 Mg Tablet 50 Mg PO BID JIMBO MARLEY MD Apr 11, 2017 20:24
== END 2017-04-09 14:00 | DRG 884 ==
LOC: ER 17:27 → GEROPSY 20:52
PROVIDERS: ADMIT Psychiatry & Neurology Psychiatry; ATTEND Psychiatry & Neurology Psychiatry
DX: F01.51 Vascular dementia, unspecified severity, with behavioral disturbance (principal); F02.81 Dementia in other diseases classified elsewhere, unspecified severity, with behavioral disturbance; G30.9 Alzheimer's disease, unspecified; E11.9 Type 2 diabetes mellitus without complications; E78.5 Hyperlipidemia, unspecified; F22 Delusional disorders; F32.9 Major depressive disorder, single episode, unspecified; F41.9 Anxiety disorder, unspecified; F63.9 Impulse disorder, unspecified; G47.00 Insomnia, unspecified; I10 Essential (primary) hypertension; Z79.899 Other long term (current) drug therapy; Z86.73 Personal history of transient ischemic attack (TIA), and cerebral infarction without residual deficits; Z87.440 Personal history of urinary (tract) infections
CPT/HCPCS: 36415; 51701; 70450; 72125; 80053; 80061; 81001; 82306; 82607; 83036; 83540; 83550; 83735; 84436; 84443; 84480; 85027; 86592; 86593; 87086; 93005; J3420; 99285-25